=== PATIENT | female | born 1955 | race Caucasian/White ===

== ENCOUNTER 2018-06-20 15:14 | Inpatient (IN) | payer OTHER ==
[~2018-06-20] VITALS: Ht 165.1 cm; Wt 47.7 kg
[2018-06-20] MEDS ORDERED: SODIUM CHLORIDE 0.9% 1000ML 1,000 ML IV STA (15:44)
[2018-06-20] MEDS ORDERED: ONDANSETRON INJ 2 MG/ML 2 ML VIAL IV STA (15:44)
--- NOTE | 2018-06-20 15:52 | EMERGENCY ROOM VISIT NOTE ---
History First contact with patient: 15:26 (Kim Ortiz PA-C) First contact with patient: 15:26 (Kendall Patterson M.D.) Chief Complaint: DIARRHEA Stated Complaint: DIARRHEA/VOMITING History of Present Illness The patient is a 63 year old female who presents to the Emergency Room with complaints of diarrhea and vomiting. The patient states that she has had loose stools for the past 1 week. She has had a decreased appetite. Her symptoms have worsened over the past 2-3 days and she has also developed vomiting. She has been unable to keep anything down, even small sips of juice. She reports that last night, she was awake and having watery stools every 1 hour. Her sister notes that she seems to have lost weight in the past week. She did take a single dose of doxycycline in March or April due to two tick bites, but denies any other recent antibiotic use. She does note that she drinks mountain/spring water at home. She denies eating any undercooked foods, but does state that she ate soup which she feels may have made her ill over 1 week ago. She denies any recent travel. She feels that she is dehydrated. She denies any abdominal pain, chest pain, shortness of breath or syncope. She denies any melena or hematochezia. She reports a history of breast cancer and ovarian cancer. (Kim Ortiz PA-C) Review of Systems A complete 10 point review of systems was reviewed with the patient with pertinent positives and negatives as per history of present illness. All else were negative. (Kim Ortiz PA-C) Past Medical/Surgical History Medical Problems: (1) Dehydration (2) History of breast cancer (3) History of ovarian cancer Surgical Problems: (1) History of hysterectomy (2) History of total hip replacement (Kendall Patterson M.D.) Social History Smoking Status: Never Smoker (Kim Ortiz PA-C) Current/Historical Medications Scheduled Travoprost (Travatan Z), 1 DROPS OP HS Physical Exam Vital Signs Date Time Temp Pulse Resp B/P (MAP) Pulse Ox O2 Delivery O2 Flow Rate FiO2 06/20/18 17:46 80 137/75 97 Room Air 06/20/18 15:23 36.6 98 18 118/69 98 Room Air (Kendall Patterson M.D.) Physical Exam VITALS: Vitals are noted on the nurse's note and reviewed by myself. Vital signs stable. GENERAL: This is a 63-year-old female, in no acute distress, very thin appearing. EARS: External auditory canals clear, tympanic membranes pearly acevedo without erythema or effusion bilaterally. EYES: Pupils equal round and reactive to light and accommodation. MOUTH: Mucous membranes dry. Tonsils are not enlarged. Pharynx without erythema or exudate. NECK: Supple without nuchal rigidity. No lymphadenopathy. HEART: Regular rate and rhythm without murmurs gallops or rubs. LUNGS: Clear to auscultation bilaterally without wheezes, rales or rhonchi. ABDOMEN: Positive bowel sounds x 4. Soft, nontender to palpation. NEURO: Patient was alert and oriented to person place and time. (Kim rOtiz, KAYLEENC) Medical Decision & Procedures Laboratory Results 06/20/18 16:20 Red Blood Count 5.32, Mean Corpuscular Volume 90.2, Mean Corpuscular Hemoglobin 31.6, Mean Corpuscular Hemoglobin Concent 35.0, Mean Platelet Volume 9.8, Neutrophils (%) (Auto) 81.8, Lymphocytes (%) (Auto) 7.8, Monocytes (%) (Auto) 9.7, Eosinophils (%) (Auto) 0.1, Basophils (%) (Auto) 0.3, Neutrophils # (Auto) 9.10, Lymphocytes # (Auto) 0.87, Monocytes # (Auto) 1.08, Eosinophils # (Auto) 0.01, Basophils # (Auto) 0.03 06/20/18 16:20 Test 06/20/18 16:20 06/20/18 17:41 White Blood Count 11.12 K/uL (4.8-10.8) Red Blood Count 5.32 M/uL (4.2-5.4) Hemoglobin 16.8 g/dL (12.0-16.0) Hematocrit 48.0 % (37-47) Mean Corpuscular Volume 90.2 fL (80-100) Mean Corpuscular Hemoglobin 31.6 pg (25-34) Mean Corpuscular Hemoglobin Concent 35.0 g/dl (32-36) Platelet Count 295 K/uL (130-400) Mean Platelet Volume 9.8 fL (7.4-10.4) Neutrophils (%) (Auto) 81.8 % Lymphocytes (%) (Auto) 7.8 % Monocytes (%) (Auto) 9.7 % Eosinophils (%) (Auto) 0.1 % Basophils (%) (Auto) 0.3 % Neutrophils # (Auto) 9.10 K/uL (1.4-6.5) Lymphocytes # (Auto) 0.87 K/uL (1.2-3.4) Monocytes # (Auto) 1.08 K/uL (0.11-0.59) Eosinophils # (Auto) 0.01 K/uL (0-0.5) Basophils # (Auto) 0.03 K/uL (0-0.2) RDW Standard Deviation 45.7 fL (36.4-46.3) RDW Coefficient of Variation 14.0 % (11.5-14.5) Immature Granulocyte % (Auto) 0.3 % Immature Granulocyte # (Auto) 0.03 K/uL (0.00-0.02) Anion Gap 11.0 mmol/L (3-11) Est Creatinine Clear Calc Drug Dose 15.7 ml/min Estimated GFR () 20.7 Estimated GFR (Non- 17.9 BUN/Creatinine Ratio 16.0 (10-20) Calcium Level 10.7 mg/dl (8.5-10.1) Magnesium Level 2.2 mg/dl (1.8-2.4) Total Bilirubin 0.4 mg/dl (0.2-1) Aspartate Amino Transf (AST/SGOT) 26 U/L (15-37) Alanine Aminotransferase (ALT/SGPT) 29 U/L (12-78) Alkaline Phosphatase 97 U/L (45-117) Total Protein 8.8 gm/dl (6.4-8.2) Albumin 4.0 gm/dl (3.4-5.0) Globulin 4.8 gm/dl (2.5-4.0) Albumin/Globulin Ratio 0.8 (0.9-2) Urine Color DK YELLOW Urine Appearance TURBID (CLEAR) Urine pH 5.0 (4.5-7.5) Urine Specific [place] 1.023 (1.000-1.030) Urine Protein 2+ (NEG) Urine Glucose (UA) NEG (NEG) Urine Ketones 1+ (NEG) Urine Occult Blood NEG (NEG) Urine Nitrite NEG (NEG) Urine Bilirubin NEG (NEG) Urine Urobilinogen NEG (NEG) Urine Leukocyte Esterase TRACE (NEG) Urine WBC (Auto) 10-30 /hpf (0-5) Urine RBC (Auto) 5-10 /hpf (0-4) Urine Hyaline Casts (Auto) >30 /lpf (0-5) Urine Epithelial Cells (Auto) >30 /lpf (0-5) Urine Bacteria (Auto) NEG (NEG) Urine Renal Epithelial Cells 5-10 /lpf (0-5) Urine Pathogenic Casts 1-5 GRANULAR CASTS /lpf (0) (Kendall Patterson M.D.) Medications Administered Medications (Trade) Dose Ordered Sig/Emmett Route Start Time Stop Time Status Last Admin Dose Admin Sodium Chloride 1,000 ml @ 999 mls/hr Q1H1M STAT IV 06/20/18 15:44 06/20/18 16:44 DC 06/20/18 16:25 999 MLS/HR Ondansetron HCl (Zofran Inj) 4 mg NOW STAT IV 06/20/18 15:44 06/20/18 15:47 DC 06/20/18 16:25 4 MG (Kendall Patterson M.D.) Medical Decision Differential diagnosis includes C. difficile, Giardia, infectious diarrhea, IBS , IBD, dehydration, electrolyte abnormality, among others. The patient is a 63-year-old female who presents today complaining of diarrhea and vomiting. Labs revealed mild leukocytosis of 11,000, which may be due to hemoconcentration as hemoglobin is also elevated at 16.8. Patient's creatinine is elevated at 2.72, BUN 44 consistent with acute kidney injury due to dehydration. Patient reports she has never had any problems with her kidneys in the past. Electrolytes were otherwise without concerning findings. Patient was unable to provide a stool sample while in the ED. She was hydrated with 1 L normal saline solution and given Zofran for her nausea. Due to the acute kidney injury, she was [facility] the [facility] for further evaluation and care. (Kim Ortiz PA-C) Medication Reconcilliation Current Medication List: was personally reviewed by me (Kim Ortiz PA-C) Blood Pressure Screening Patient's blood pressure: Normal blood pressure (Kim Ortiz PA-C) Impression Primary Impression: Acute kidney injury Additional Impressions: Dehydration Diarrhea Departure Information Patient Instructions [facility] Health Problem Qualifiers Additional Impressions: Diarrhea Diarrhea type: presumed infectious Qualified Codes: R19.7 - Diarrhea, unspecified
[2018-06-20 16:41] LABS: BASO % 0.3 %; BASO ABS # 0.03 K/uL (0-0.2); EOS % 0.1 %; EOS ABS # 0.01 K/uL (0-0.5); HEMOGLOBIN 16.8 g/dL (12.0-16.0); IG# 0.03 K/uL (0.00-0.02); LYMPH % 7.8 %; LYMPH ABS # 0.87 K/uL (1.2-3.4); MEAN CELL VOLUME 90.2 fL (80-100); MEAN CORPUSCULAR HEMOGLOBIN 31.6 pg (25-34); MEAN PLATELET VOLUME 9.8 fL (7.4-10.4); MONO % 9.7 %; MONO ABS # 1.08 K/uL (0.11-0.59); NEUT % 81.8 %; PLATELET COUNT 295 K/uL (130-400); RED CELL DISTRIBUTION WIDTH SD 45.7 fL (36.4-46.3); WHITE BLOOD COUNT 11.12 K/uL (4.8-10.8)
[2018-06-20 17:13] LABS: CALCIUM 10.7 mg/dl (8.5-10.1); CREATININE 2.72 mg/dl (0.60-1.20); POTASSIUM 3.9 mmol/L (3.5-5.1); TOTAL PROTEIN 8.8 gm/dl (6.4-8.2)
[2018-06-20] MEDS ORDERED: TRAV0.00 OP (17:53)
[2018-06-20] MEDS ORDERED: ONDANSETRON INJ 2 MG/ML 2 ML VIAL IV PRN (18:45)
[2018-06-20] MEDS ORDERED: MAGNESIUM HYDROXIDE SUSP 30 ML UDC PO PRN (18:45)
[2018-06-20] MEDS ORDERED: ACETAMINOPHEN 325 MG TAB PO PRN (18:45)
--- NOTE | 2018-06-20 18:48 | History and Physical ---
History & Physical Date & Time of Service: Jun 20, 2018 at 18:40 Chief Complaint: Diarrhea/Vomiting Primary Care Physician: No Doctor, Assigned History of Present Illness Source: patient 63 y/o F c/o diarrhea and vomiting. Pt states she has had diarrhea for about 7- 8 days. She states that she started having emesis about 2-3 days ago. She has not been able to keep anything down since this started. This morning she tried to swish orange juice around in her mouth and she threw up as soon as she swallowed it. She has had no abd pain with any of this. Her sx are worsening and she was up almost every hour last night with diarrhea. Her last emesis and diarrhea were this AM. They have been unable to collect a stool sample from her in the ED as she has not had any episode. Her stool has been a green color. There has been no blood. She has never had diarrhea like this prior. Pt denies fever, SOB, chest pain, LE pain or swelling. Pt lives alone at present as her has just been placed in a usp. She does go to visit him and states that she was told that there was a stomach bug going around. Pt had a single dose of doxy in March or April for tick bites, but no other abx. No travel. Her is not sick with this. No sick contacts. Pt does drink mountain water. Pt notes that she is generally very active, walking daily and other exercises, but she has been so weak that she has not been able to do this the last week. Past Medical/Surgical History Breast ca s/p mastectomy Ovarian ca s/p hysterectomy Family History Mother/father: both from cancer Social History Smoking Status: Former Smoker (quit 1998) Alcohol Use: rarely Drug Use: none Immunizations History of Influenza Vaccine: No History of Tetanus Vaccine?: Yes Tetanus Immunization Date: Feb 03, 1990 History of Pneumococcal: No History of Hepatitis B Vaccine: No Allergies Coded Allergies: Nickel (Unverified Allergy, Severe, RASH,ITCHING, 06/20/18) Home Medications Scheduled Travoprost (Travatan Z), 1 DROPS OP HS Review of Systems Pertinent positives and negatives reviewed in HPI--all others negative Physical Exam Vital Signs Date Time Temp Pulse Resp B/P (MAP) Pulse Ox O2 Delivery O2 Flow Rate FiO2 06/20/18 17:46 80 137/75 97 Room Air 06/20/18 15:23 36.6 98 18 118/69 98 Room Air General Appearance: no apparent distress, + thin Head: normocephalic, atraumatic Eyes: normal inspection, sclerae normal Respiratory/Chest: normal breath sounds, no respiratory distress Cardiovascular: regular rate, rhythm, no edema Abdomen/GI: non tender, soft Extremities/Musculoskelatal: no calf tenderness, no pedal edema Neurologic/Psych: alert, normal mood/affect, oriented x 3 Skin: normal color, warm/dry Diagnostics Laboratory Results Results Past 24 Hours Test 06/20/18 16:20 06/20/18 17:41 Range/Units White Blood Count 11.12 4.8-10.8 K/uL Red Blood Count 5.32 4.2-5.4 M/uL Hemoglobin 16.8 12.0-16.0 g/dL Hematocrit 48.0 37-47 % Mean Corpuscular Volume 90.2 80-100 fL Mean Corpuscular Hemoglobin 31.6 25-34 pg Mean Corpuscular Hemoglobin Concent 35.0 32-36 g/dl Platelet Count 295 130-400 K/uL Mean Platelet Volume 9.8 7.4-10.4 fL Neutrophils (%) (Auto) 81.8 % Lymphocytes (%) (Auto) 7.8 % Monocytes (%) (Auto) 9.7 % Eosinophils (%) (Auto) 0.1 % Basophils (%) (Auto) 0.3 % Neutrophils # (Auto) 9.10 1.4-6.5 K/uL Lymphocytes # (Auto) 0.87 1.2-3.4 K/uL Monocytes # (Auto) 1.08 0.11-0.59 K/uL Eosinophils # (Auto) 0.01 0-0.5 K/uL Basophils # (Auto) 0.03 0-0.2 K/uL RDW Standard Deviation 45.7 36.4-46.3 fL RDW Coefficient of Variation 14.0 11.5-14.5 % Immature Granulocyte % (Auto) 0.3 % Immature Granulocyte # (Auto) 0.03 0.00-0.02 K/uL Sodium Level 139 136-145 mmol/L Potassium Level 3.9 3.5-5.1 mmol/L Chloride Level 108 98-107 mmol/L Carbon Dioxide Level 20 21-32 mmol/L Anion Gap 11.0 3-11 mmol/L Blood Urea Nitrogen 44 7-18 mg/dl Creatinine 2.72 0.60-1.20 mg/dl Est Creatinine Clear Calc Drug Dose 15.7 ml/min Estimated GFR () 20.7 Estimated GFR (Non- 17.9 BUN/Creatinine Ratio 16.0 10-20 Random Glucose 108 70-99 mg/dl Calcium Level 10.7 8.5-10.1 mg/dl Magnesium Level 2.2 1.8-2.4 mg/dl Total Bilirubin 0.4 0.2-1 mg/dl Aspartate Amino Transf (AST/SGOT) 26 15-37 U/L Alanine Aminotransferase (ALT/SGPT) 29 12-78 U/L Alkaline Phosphatase 97 45-117 U/L Total Protein 8.8 6.4-8.2 gm/dl Albumin 4.0 3.4-5.0 gm/dl Globulin 4.8 2.5-4.0 gm/dl Albumin/Globulin Ratio 0.8 0.9-2 Urine Color DK YELLOW Urine Appearance TURBID CLEAR Urine pH 5.0 4.5-7.5 Urine Specific [place] 1.023 1.000-1.030 Urine Protein 2+ NEG Urine Glucose (UA) NEG NEG Urine Ketones 1+ NEG Urine Occult Blood NEG NEG Urine Nitrite NEG NEG Urine Bilirubin NEG NEG Urine Urobilinogen NEG NEG Urine Leukocyte Esterase TRACE NEG Urine WBC (Auto) 10-30 0-5 /hpf Urine RBC (Auto) 5-10 0-4 /hpf Urine Hyaline Casts (Auto) >30 0-5 /lpf Urine Epithelial Cells (Auto) >30 0-5 /lpf Urine Bacteria (Auto) NEG NEG Urine Renal Epithelial Cells 5-10 0-5 /lpf Urine Pathogenic Casts 1-5 GRANULAR CASTS 0 /lpf Microbiology Results 06/20/18 Urine Culture, Received Pending Impression Assessment and Plan 63 y/o F who was admitted on 06/20 with diarrheal illness V/D: likely acute viral GE, unknown source--contaminated spring water vs SNF exposure Cdiff and stool cx pending IVF Clears Probiotic WBC WNL, afebrile No abd pain, will hold on CTAP for now ARF: in the setting of dehydration from above Monitor on IVF No hx of renal issues per pt Electrolytes WNL Abn UA: trace leuk est, neg nitrites Urine cx pending, holding on abx for now Other: Full code, although states she does not want any prolonged life support, feeding tubes, etc Heparin for DVT proph Clears as tolerated with IVF Resuscitation Status VTE Prophylaxis Will order VTE Prophylaxis: Yes
[2018-06-20 20:31] LABS: PTT PATIENT 25.4 SECONDS (21.0-31.0)
[2018-06-20] MEDS ORDERED: TRAVOPROST Z 0.004% OPH SOLN 2.5 ML BTL OP SCH (21:00)
[2018-06-20 21:46] VITALS: BP 145/82; PULSE 88; TEMP 36.6; O2SAT 98; Ht 165.1 cm; Wt 47.7 kg
[2018-06-20] MEDS: HEPARIN SOD 5000 UNIT/0.5 ML CARP SQ SCH (22:00)
[2018-06-20] MEDS: TRAVOPROST OP SCH (22:14)
[2018-06-20] MEDS: SODIUM CHLORIDE 0.9% 1000ML 1,000 ML IV SCH (22:14)
[2018-06-20 22:18] VITALS: BP 122/72; PULSE 77; TEMP 36.8; O2SAT 96
[2018-06-21] MEDS: HEPARIN SOD 5000 UNIT/0.5 ML CARP SQ SCH ×3 (05:32→20:51)
[2018-06-21 05:52] LABS: CREATININE 1.57 mg/dl (0.60-1.20); POTASSIUM 3.2 mmol/L (3.5-5.1)
[2018-06-21 07:01] LABS: CALCIUM 8.1 mg/dl (8.5-10.1)
[2018-06-21] MEDS: SODIUM CHLORIDE 0.9% 1000ML 1,000 ML IV SCH ×2 (07:07→16:51)
[2018-06-21 07:23] VITALS: BP 120/63; PULSE 68; TEMP 36.7; O2SAT 96
[2018-06-21] MEDS: LACTOBACILLUS ACIDOPHILUS (FLORANEX) TAB PO SCH ×3 (07:44→16:52)
[2018-06-21] MEDS ORDERED: POTASSIUM CHLORIDE 10 MEQ TABCR PO STA (07:44)
[2018-06-21 15:39] VITALS: BP 147/72; PULSE 67; TEMP 36.8; O2SAT 97
--- NOTE | 2018-06-21 16:00 | Progress Note ---
Subjective Date of Service: Jun 21, 2018. Subjective Pt evaluation today including: conversation w/ patient, physical exam, chart review, lab review, review of studies, review of inpatient medication list Voiding: no voiding problems Doing well, no complaints, total 2 x time diarrhea today, much better than yesterday, amount is better to Problem List Medical Problems: (1) Acute kidney injury Status: Acute (2) Diarrhea Status: Acute Review of Systems Constitutional: + weakness, + fatigue, No fever, No chills, No sweats, No weight loss, No problem reported Eyes: No worsening of vision, No eye pain, No redness, No discharge, No diplopia ENT: No hearing loss, No unusual epistaxis, No nasal symptoms, No sore throat, No tinnitus, No dental problems, No trouble swallowing Respiratory: No cough, No sputum, No wheezing, No shortness of breath, No dyspnea on exertion, No dyspnea at rest, No hemoptysis Cardiac: No chest pain, No orthopnea, No PND, No edema, No claudication, No palpitations Abdomen: No pain, No nausea, No vomiting, No diarrhea, No constipation Musculoskeletal: No joint pain, No muscle pain, No swelling, No calf pain Female : No dysuria, No urinary frequency, No hematuria, No incontinence, No abnormal vaginal bleeding, No vaginal discharge Neurologic: No memory loss, No paralysis, No weakness, No numbness/tingling, No vertigo, No balance problems Psychiatric: No depression symptoms, No anhedonism, No anxiety, No insomnia, No substance abuse Heme: No abnormal bleeding/bruising, No clotting problems, No swollen lymph nodes, No night sweats Endo: No fatigue, No excessive thirst, No excessive urination Skin: No rash, No itch, No new/changing skin lesions, No color change, No bleeding Objective Vital Signs Date Time Temp Pulse Resp B/P (MAP) Pulse Ox O2 Delivery O2 Flow Rate FiO2 06/21/18 15:39 36.8 67 17 147/72 (97) 97 Room Air 06/21/18 08:00 Room Air 06/21/18 07:23 36.7 68 16 120/63 (82) 96 Room Air 06/21/18 00:00 Room Air 06/20/18 22:18 36.8 77 20 122/72 (89) 96 Room Air 06/20/18 21:46 36.6 88 16 145/82 98 Room Air 06/20/18 20:30 77 174/81 98 06/20/18 20:28 77 14 174/81 98 Room Air 06/20/18 19:15 82 18 149/78 96 Room Air 06/20/18 17:46 80 137/75 97 Room Air Physical Exam General Appearance: WD/WN, no apparent distress, + thin Eyes: normal inspection, PERRL, EOMI, sclerae normal ENT: normal ENT inspection, hearing grossly normal, pharynx normal Neck: supple, no adenopathy, thyroid normal, no JVD, no carotid bruits, trachea midline Respiratory/Chest: chest non-tender, lungs clear, normal breath sounds, no respiratory distress, no accessory muscle use Cardiovascular: regular rate, rhythm, no edema, no gallop, no JVD, no murmur Abdomen: normal bowel sounds, non tender, soft, no organomegaly, no pulsatile mass Extremities: normal range of motion, non-tender, normal inspection, no pedal edema, no calf tenderness, normal capillary refill, pelvis stable Neurologic/Psychiatric: qa software tester II-XII nml as tested, no motor/sensory deficits, alert, normal mood/affect, oriented x 3 Skin: normal color, warm/dry, no rash Lymphatic: no adenopathy Laboratory Results Last 24 Hours Test 06/20/18 16:20 06/20/18 17:41 06/20/18 20:05 06/20/18 21:52 White Blood Count 11.12 K/uL Red Blood Count 5.32 M/uL Hemoglobin 16.8 g/dL Hematocrit 48.0 % Mean Corpuscular Volume 90.2 fL Mean Corpuscular Hemoglobin 31.6 pg Mean Corpuscular Hemoglobin Concent 35.0 g/dl Platelet Count 295 K/uL Mean Platelet Volume 9.8 fL Neutrophils (%) (Auto) 81.8 % Lymphocytes (%) (Auto) 7.8 % Monocytes (%) (Auto) 9.7 % Eosinophils (%) (Auto) 0.1 % Basophils (%) (Auto) 0.3 % Neutrophils # (Auto) 9.10 K/uL Lymphocytes # (Auto) 0.87 K/uL Monocytes # (Auto) 1.08 K/uL Eosinophils # (Auto) 0.01 K/uL Basophils # (Auto) 0.03 K/uL RDW Standard Deviation 45.7 fL RDW Coefficient of Variation 14.0 % Immature Granulocyte % (Auto) 0.3 % Immature Granulocyte # (Auto) 0.03 K/uL Sodium Level 139 mmol/L Potassium Level 3.9 mmol/L Chloride Level 108 mmol/L Carbon Dioxide Level 20 mmol/L Anion Gap 11.0 mmol/L Blood Urea Nitrogen 44 mg/dl Creatinine 2.72 mg/dl Est Creatinine Clear Calc Drug Dose 15.7 ml/min Estimated GFR () 20.7 Estimated GFR (Non- 17.9 BUN/Creatinine Ratio 16.0 Random Glucose 108 mg/dl Calcium Level 10.7 mg/dl Magnesium Level 2.2 mg/dl Total Bilirubin 0.4 mg/dl Aspartate Amino Transf (AST/SGOT) 26 U/L Alanine Aminotransferase (ALT/SGPT) 29 U/L Alkaline Phosphatase 97 U/L Total Protein 8.8 gm/dl Albumin 4.0 gm/dl Globulin 4.8 gm/dl Albumin/Globulin Ratio 0.8 Urine Color DK YELLOW Urine Appearance TURBID Urine pH 5.0 Urine Specific [place] 1.023 Urine Protein 2+ Urine Glucose (UA) NEG Urine Ketones 1+ Urine Occult Blood NEG Urine Nitrite NEG Urine Bilirubin NEG Urine Urobilinogen NEG Urine Leukocyte Esterase TRACE Urine WBC (Auto) 10-30 /hpf Urine RBC (Auto) 5-10 /hpf Urine Hyaline Casts (Auto) >30 /lpf Urine Epithelial Cells (Auto) >30 /lpf Urine Bacteria (Auto) NEG Urine Renal Epithelial Cells 5-10 /lpf Urine Pathogenic Casts 1-5 GRANULAR CASTS /lpf Prothrombin Time 10.9 SECONDS Prothromb Time International Ratio 1.0 Activated Partial Thromboplast Time 25.4 SECONDS Partial Thromboplastin Ratio 1.0 Test 06/21/18 05:19 Sodium Level 139 mmol/L Potassium Level 3.2 mmol/L Chloride Level 114 mmol/L Carbon Dioxide Level 18 mmol/L Anion Gap 7.0 mmol/L Blood Urea Nitrogen 44 mg/dl Creatinine 1.57 mg/dl Est Creatinine Clear Calc Drug Dose 27.6 ml/min Estimated GFR () 40.2 Estimated GFR (Non- 34.7 BUN/Creatinine Ratio 27.8 Random Glucose 77 mg/dl Calcium Level 8.1 mg/dl Assessment and Plan 63 y/o F who was admitted on 06/20 with diarrheal illness Duodenitis gastroenteritis with vomiting or diarrhea, Improved, resolving v Cdiff negative, continue IVF, continue clears liquid diet, advance as tolerated ARF improving: in the setting of dehydration from above, continue IV fluid, hypokalemia replaced Abn UA: trace leuk est, neg nitrites, Urine cx pending, holding on abx for now Full code, however, per record, she states she does not want any prolonged life support, feeding tubes, etc Heparin for DVT proph Continued [facility] stay due to: multiple IV medications needed Discharge planning: home
[2018-06-21] MEDS: TRAVOPROST OP SCH (20:51)
[2018-06-21 23:08] VITALS: BP 145/74; PULSE 62; TEMP 36.7; O2SAT 98
[2018-06-22] MEDS: SODIUM CHLORIDE 0.9% 1000ML 1,000 ML IV SCH (03:30)
[2018-06-22] MEDS: HEPARIN SOD 5000 UNIT/0.5 ML CARP SQ SCH ×2 (06:00→14:00)
[2018-06-22 06:30] LABS: CALCIUM 7.8 mg/dl (8.5-10.1); CREATININE 0.8 mg/dl (0.60-1.20); POTASSIUM 3.5 mmol/L (3.5-5.1)
[2018-06-22 07:23] VITALS: BP 106/67; PULSE 62; TEMP 36.7; O2SAT 97
[2018-06-22] MEDS: LACTOBACILLUS ACIDOPHILUS (FLORANEX) TAB PO SCH ×2 (07:50→12:03)
--- NOTE | 2018-06-22 12:00 | Discharge Instructions ---
Discharge Instructions Date of Service Jun 22, 2018. Admission Reason for Admission: Dehydration Discharge Discharge Diagnosis / Problem: gastroenteritis Discharge Goals Goal(s): Decrease discomfort, Improve function, Increase independence, Improve disease control, Improve nutritional status, Learn about illness, Diagnostic testing, Therapeutic intervention Activity Recommendations Activity Limitations: resume your previous activity . Instructions / Follow-Up Instructions / Follow-Up you have virus gastroenteritis with vomiting or diarrhea, - you need to follow up with your primary care physician in 1 week, - take medication as instructed, never overdose or any misuse, or take with alcohol, because misuse of medicine may cause organ damage or , call me , or your primary care physician if have questions of discharge medicaitons. - call your primary care physician, or go to local emergency room if has any fever/chill, chest pain, shortness of breathing, nausea/vomiting/abdominal pain , facial droop/slurry speech/local weakness, or if has any questions. - fall precaution - diet as instructed Current Hospital Diet Patient's current hospital diet: Full Liquid Diet Discharge Diet Recommended Diet: Regular Diet Pending Studies Studies pending at discharge: no Laboratory Results Meds Administered (Past 24Hrs) Medications (Trade) Dose Ordered Sig/Emmett Route Start Time Stop Time Status Last Admin Dose Admin Sodium Chloride 1,000 ml @ 999 mls/hr Q1H1M STAT IV 06/20/18 15:44 06/20/18 16:44 DC 06/20/18 16:25 999 MLS/HR Ondansetron HCl (Zofran Inj) 4 mg NOW STAT IV 06/20/18 15:44 06/20/18 15:47 DC 06/20/18 16:25 4 MG Sodium Chloride 1,000 ml @ 100 mls/hr Q10H IV 06/20/18 21:30 06/22/18 08:16 DC 06/22/18 03:30 100 MLS/HR Lactobacillus Acidophilus (Floranex Tab) 4 tab TIDM PO 06/21/18 08:00 07/21/18 07:59 06/22/18 07:50 4 TAB Travoprost (Travatan Z) 1 drops HS OP 06/20/18 22:00 07/20/18 21:59 06/21/18 20:51 1 DROPS Potassium Chloride (Klor-Con M10) 40 meq NOW STAT PO 06/21/18 07:44 06/21/18 07:51 DC 06/21/18 09:06 40 MEQ Medical Emergencies . Who to Call and When: Medical Emergencies: If at any time you feel your situation is an emergency, please call 911 immediately. . Non-Emergent Contact Non-Emergency issues call your: Primary Care Provider . . "Provider Documentation" section prepared by Ghulam Morrison. .
[2018-06-22 14:22] VITALS: BP 106/67; PULSE 62; TEMP 36.7; O2SAT 97
--- NOTE | 2018-06-22 14:24 | Discharge Summary ---
Discharge Summary Date of Service Jun 22, 2018. Discharge Summary Admission Date: Jun 20, 2018 at 18:40 Discharge Date: Jun 22, 2018 Discharge Disposition: Home Principal Diagnosis: virus gastroenteritis Immunizations: Have You Had Influenza Vaccine: No History of Tetanus Vaccine?: Yes Tetanus Immunization Date: Feb 03, 1990 History of Pneumococcal: No History of Hepatitis B Vaccine: No Procedures: No Consultations: No Medication Reconciliation Continued Medications: Travoprost (Travatan Z) 0.004 % Javier 1 DROPS OP HS, #2.5 ML 2 Refills Discharge Exam Continue doing well, no bowel movement, no diarrhea, has been tolerating diet for breakfast and lunch, later reported to me tolerated regular diet too Review of Systems: Constitutional: No fever, No chills, No sweats, No weight loss, No weakness , No fatigue, No problem reported Eyes: No worsening of vision, No eye pain, No redness, No discharge, No diplopia, No problem reported ENT: No hearing loss, No unusual epistaxis, No nasal symptoms, No sore throat, No tinnitus, No dental problems, No trouble swallowing, No problem reported Respiratory: No cough, No sputum, No wheezing, No shortness of breath, No dyspnea on exertion, No dyspnea at rest, No hemoptysis, No problem reported Cardiovascular: No chest pain, No orthopnea, No PND, No edema, No claudication, No palpitations, No problem reported Abdomen: No pain, No nausea, No vomiting, No diarrhea, No constipation, No GI bleeding, No problem reported Musculoskeletal: No joint pain, No muscle pain, No swelling, No calf pain, No problem reported Genitourinary - Female: No dysuria, No urinary frequency, No urinary urgency , No urinary incontinence, No urinary retention, No hematuria, No dysmenorrhea, No menorrhagia, No metrorrhagia, No rash, No vaginal bleeding, No vaginal discharge, No vaginal itching, No vulvodynia, No , No problem reported Neurologic: No memory loss, No paralysis, No weakness, No numbness/tingling , No vertigo, No balance problems, No problem reported Endocrine: No fatigue, No excessive thirst, No excessive urination, No problem reported Hematologic / Lymphatic: No abnormal bleeding/bruising, No clotting problems , No swollen lymph nodes, No night sweats, No problem reported Integumentary: No rash, No itch, No new/changing skin lesions, No color change, No bleeding, No problem reported Physical Exam: General Appearance: WD/WN Eyes: normal inspection ENT: normal ENT inspection, hearing grossly normal Neck: supple, no adenopathy Respiratory/Chest: chest non-tender, lungs clear Cardiovascular: regular rate, rhythm, no edema Abdomen / GI: normal bowel sounds, non tender, soft, no organomegaly Extremities: normal inspection, no calf tenderness Skin: normal color Hospital Course 63 y/o F who was admitted on 06/20 with diarrheal illness Likely virus gastroenteritis with vomiting or diarrhea, continue improvement and resolving Cdiff negative, Has been off IVF, Has been clears liquid diet, advance as tolerated, today tighter tolerated regular diet ARF acute renal failure upon admission, has been improving: in the setting of dehydration from above, has been on IV fluids hypokalemia upon admission replaced Abn UA: trace leuk est, neg nitrites, urine culture negative, will not need antibiotics Full code, however, per record, she states she does not want any prolonged life support, feeding tubes, etc Heparin for DVT proph Patient discharged home today in stable condition Instructions / Follow-Up you have virus gastroenteritis with vomiting or diarrhea, - you need to follow up with your primary care physician in 1 week, - take medication as instructed, never overdose or any misuse, or take with alcohol, because misuse of medicine may cause organ damage or , call me , or your primary care physician if have questions of discharge medicaitons. - call your primary care physician, or go to local emergency room if has any fever/chill, chest pain, shortness of breathing, nausea/vomiting/abdominal pain , facial droop/slurry speech/local weakness, or if has any questions. - fall precaution - diet as instructed Total Time Spent: Greater than 30 minutes This includes examination of the patient, discharge planning, medication reconciliation, and communication with other providers. Discharge Instructions Please refer to the electronic Patient Visit Report (Discharge Instructions) for additional information.
== END 2018-06-22 18:57 | disposition home or self-care (01) | DRG 392 ==
LOC: C.EDB 15:17 → C.MS2W 18:40 → ENRESERV 19:19
PROVIDERS: ADMIT Family Medicine; ATTEND Hospitalist
DX: A08.4 Viral intestinal infection, unspecified (principal); N17.9 Acute kidney failure, unspecified; Z85.3 Personal history of malignant neoplasm of breast; Z96.649 Presence of unspecified artificial hip joint; E86.0 Dehydration; Z87.891 Personal history of nicotine dependence

== ENCOUNTER 2020-04-25 14:43 | Inpatient (IN) ==
[2020-04-25] MEDS ORDERED: PROMETHAZINE 12.5 MG/50.5 ML BAG IV STA (15:24)
[2020-04-25] MEDS ORDERED: SODIUM CHLORIDE 0.9% 1000ML 1,000 ML IV SCH ×2 (15:30→23:15)
--- NOTE | 2020-04-25 15:32 | Emergency Department Note ---
Impression & Plan SBO (small bowel obstruction), History of ovarian cancer, Nausea & vomiting ED Provider Note NAME: ANY SCHOFIELD AGE: 64 SEX: F : 1955 ARRIVES VIA: Walk-In INFORMANT: Patient, ED PROVIDER(S): Juan Carlos Lockwood DO CHIEF COMPLAINT: Nausea vomiting HPI: The patient is a 64-year-old female who presented to the emergency department for an evaluation of nausea vomiting. The patient was treated with IV fluids and IV antiemetics at the [facility]. She was sent to the emergency department because of ongoing symptoms. The patient also complains of intermittent crampy abdominal pain. She has a history of ovarian cancer. She states her symptoms are mildly improved at this time. She denies having any fever or cough. She states that otherwise she has been compliant with her outpatient medications. She denies having any chest pain difficulty breathing or lower extremity pain. She denies having any lower extremity swelling. She states that she does have a history of ascites which is needed drained in the past. ROS: See above HPI for pertinent positives & negatives. A total of 10 systems reviewed and were otherwise negative. PAST MEDICAL HISTORY: See Below PAST SURGICAL HISTORY: See Below FAMILY HISTORY: See Below SOCIAL HISTORY: See Below HOME MEDICATIONS: See Below ALLERGIES: See Below VITALS: See Below PHYSICAL EXAMINATION: GENERAL: The patient is awake and alert. The patient is somewhat anxious appearing and uncomfortable. EYES: The conjunctivae are clear. The pupils are round and reactive. EARS, NOSE, MOUTH AND THROAT: The nose is without any evidence of any deformity. Mucous membranes are dry. NECK: The neck is nontender and supple. RESPIRATORY: Normal respiratory effort is noted there is no evidence of wheezing rhonchi or rales CARDIOVASCULAR: Regular rate and rhythm noted there no murmurs rubs or gallops normal S1 normal S2. GASTROINTESTINAL: The abdomen is mildly distended but soft. There is diffuse tenderness to palpation but no specific guarding or rigidity. MUSCULOSKELETAL/EXTREMITIES: There is no evidence of gross deformity full range of motion is noted in the hips and shoulders. SKIN: There is no obvious evidence of any rash. There are no petechiae, pallor or cyanosis noted. NEUROLOGIC: Patient is awake alert and oriented x3 strength is symmetric patellar reflexes are 2+ bilaterally MEDICAL DECISION MAKING: The patient is a 64-year-old female who has a history of ovarian cancer who presented to the emergency department for an evaluation of nausea vomiting. The patient was seen in the cancer center and treated with IV fluids and IV antiemetics but her symptoms were ongoing so she was sent to the emergency department for further evaluation. The patient did not have specific abdominal pain by complaint but on physical exam she did have lower abdominal tenderness. She started having intermittent abdominal pain so CT of the abdomen and pelvis was obtained. This appeared to be consistent with a small bowel obstruction. The patient has had a history of similar episodes in the past. I discussed the patient's laboratory and radiographic studies with her. She was treated with IV fluids and IV antiemetics. I discussed her case with the on-call [facility] hospitalist group as well as the on-call surgical group. They have agreed to evaluate the patient in the emergency department for further management and disposition. Triage Nursing notes reviewed. Prior medical records reviewed Vital Signs: reviewed and remarkable for no significant abnormalities Differential diagnosis: Gastroenteritis, food borne illness, infections, appendicitis, diverticulitis, inflammatory bowel disease, obstruction, GI bleed, biliary pathology, volvulus, as well as other pathologies. ER treatment provided: See below Diagnostics interpreted by me: ECG: none Cardiac Monitoring: An order was placed for continuous cardiac monitoring. The monitor shows a rate of 85 with sinus rhythm. Laboratory studies: As stated above and show below. Imaging studies: See below Consultation(s): 1710: I discussed this case with Dr. Garrett. She was on-call for the [facility] hospitalist group. They will evaluate the patient in the emergency department for further management and disposition. 1720: I discussed this case with Yevgeniy who was covering for the surgical group. He will evaluate the patient in the emergency department for further management and disposition. Past Med/Surg History Medical History Ascites r/t cancer- s/p "successful" ultrasound guided paracentesis with removal of approximately 2.1 liters of ascitic fluid" per 02/22/20 [facility] report Emphysema lung per PCP records Glaucoma History of blood clots DURING CHEMO TREATMENT (WAS ON BLOOD THINNER) History of breast cancer 1998 s/p mastectomy/chemo History of chemotherapy History of ovarian cancer initial dx 2007 SBO (small bowel obstruction) hx per records Trigger finger of right hand (Acute) repaired per patient. 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 Beliefs That Will Affect Care: None marital status: / Current Living Situation: Alone Feels Safe at Home: Yes Smoking Status: Former smoker Tobacco Type: cigarettes ; Smoking End Date: 1998 ; Second Hand Exposure: Yes ; Hx Alcohol Use: No Hx Substance Use: No Allergies Allergies Allergy/AdvReac Type Severity Reaction Status Date / Time nickel Allergy Intermediate RASH,ITCHIN Verified 04/25/20 15:52 G Home Meds Home Medications Medication Instructions Recorded Confirmed latanoprost 1 drp OPHTHALMIC (EYE) HS 02/02/20 04/25/20 ondansetron HCl 8 mg tablet 8 mg PO Q8H PRN 02/24/20 04/25/20 oxycodone 5 mg capsule 5 mg PO BID PRN 02/24/20 04/25/20 dexamethasone [Decadron] 10 mg PO UD 04/25/20 04/25/20 Results & Data (ED) Vital Signs Vital Signs - 24 hr 04/25/20 15:10 04/25/20 15:24 04/25/20 16:19 Temperature 36.8 C Temperature Source Oral Pulse Rate 91 H 78 Pulse Rate from SpO2 Sensor 78 Respiratory Rate 20 18 Blood Pressure 155/86 H 181/76 H Blood Pressure Mean 109 124 Pulse Oximetry 99 96 96 Oxygen Delivery Method Room Air Room Air Sepsis Recent Fever Within 48 Hours No Sepsis New/Unexplained Change in Mental Status No Sepsis Action Taken by Nursing No Action Required 04/25/20 16:24 04/25/20 16:30 04/25/20 17:00 Temperature Temperature Source Pulse Rate 79 78 79 Pulse Rate from SpO2 Sensor 78 78 79 Respiratory Rate 17 16 15 Blood Pressure Blood Pressure Mean Pulse Oximetry 96 97 97 Oxygen Delivery Method Sepsis Recent Fever Within 48 Hours Sepsis New/Unexplained Change in Mental Status Sepsis Action Taken by Nursing 04/25/20 17:42 04/25/20 17:44 Temperature Temperature Source Pulse Rate 75 77 Pulse Rate from SpO2 Sensor Respiratory Rate 16 15 Blood Pressure 191/93 H Blood Pressure Mean 140 Pulse Oximetry Oxygen Delivery Method Sepsis Recent Fever Within 48 Hours Sepsis New/Unexplained Change in Mental Status Sepsis Action Taken by [facility]itent[facility] Medications Current Medication List: was personally reviewed by me Laboratory Data Attestation: I reviewed the patient's lab results. Lab Results 04/25/20 04/25/20 Range/Units 15:40 15:40 Lipase 113 (73-393) U/L Procalcitonin < 0.05 (0-0.5) ng/ml The patient's laboratory results from the cancer center were also reviewed. Administered Medications Ioversol (Optiray 320 125ml) 93 ml IV ONCE PRN PRN Reason: Interaction Checking Stop: 04/29/20 16:02 Last Admin: 04/25/20 16:04 Dose: 93 ml Documented by: [id number] Ioversol (Optiray 320 100ml) 93 ml IV ONCE PRN PRN Reason: Interaction Checking Stop: 04/29/20 16:04 Last Admin: 04/25/20 16:05 Dose: 93 ml Documented by: [id number] Morphine Sulfate (Morphine Sulfate) 4 mg IV Q3H PRN PRN Reason: Severe Pain Stop: 05/09/20 18:03 Last Admin: 04/25/20 18:22 Dose: 4 mg Documented by: [id number] Discontinued Medications Hydralazine HCl (Hydralazine Hcl) 5 mg IV NOW ONE Stop: 04/25/20 18:11 Last Admin: 04/25/20 18:22 Dose: 5 mg Documented by: [id number] Sodium Chloride (Nss 1000ml) 1,000 mls @ 999 mls/hr IV .Q1H1M IVY Stop: 04/25/20 16:30 Last Infusion: 04/25/20 17:59 Dose: 0 mls/hr Documented by: [id number] Admin: 04/25/20 15:46 Dose: 999 mls/hr Documented by: [id number] Promethazine HCl (Phenergan) 12.5 mg in 50.5 mls @ 202 mls/hr IV NOW STA Stop: 04/25/20 15:38 Last Infusion: 04/25/20 16:07 Dose: 0 mls/hr Documented by: [id number] Admin: 04/25/20 15:52 Dose: 202 mls/hr Documented by: [id number] Morphine Sulfate (Morphine Sulfate) 2 mg IV NOW STA Stop: 04/25/20 20:19 Last Admin: 04/25/20 20:46 Dose: 2 mg Documented by: [id number] Imaging Data Radiologist's Impression: vXR chest 1V portable CLINICAL HISTORY: vomiting COMPARISON STUDY: 02/28/2020 FINDINGS: The cardiac and mediastinal contours remain stable. There is a right- sided A-Port catheter. There is no failure. There are no pleural effusions. There is no evidence for free intraperitoneal air. Increased density at the right medial apex, likely represents a summation.[No corresponding pulmonary abnormality was visualized in the prior PET CT scan dated 03/01/2020. IMPRESSION: 1. Increased markings at the right medial lung apex, likely representing a summation. There was no corresponding pulmonary abnormality on a PET CT scan performed in February 2020. If the patient has signs or symptoms of pneumonia, a short-term follow-up PA and lateral chest x-ray would be suggested. 2. No evidence of free intraperitoneal air. ACT 112: Negative or not required by law. Electronically signed by: Crow Carranza M.D. 04/25/2020 3:41 PM Dictated: 04/25/20 1538 Transcribed: 04/25/20 [address] WITH IV CONTRAST CT DOSE: 243.08 mGy.cm HISTORY: [facility]: Multiaxial CT images of the abdomen and pelvis were performed following the use of intravenous contrast. A dose lowering technique was utilized adhering to the principles of ALARA. COMPARISON STUDY: Abdomen and pelvis CT 02/02/2020. FINDINGS: The lung bases are clear. No pneumoperitoneum. No pneumatosis. There is a right total hip arthroplasty. No suspicious lytic are blastic osseous lesions. The liver, spleen, adrenal glands, gallbladder, pancreas, and kidneys are unremarkable. No retroperitoneal lymphadenopathy. Normal caliber abdominal aorta. The main portal vein is patent. Distended and fluid-filled stomach and small bowel to the level of the deep pelvis. The distal ileal loops appear decompressed. The transition point for the small bowel obstruction is difficult to visualize due to the lack of intraperitoneal fat in the metallic artifact from the right hip prosthesis but likely resides within the deep pelvis. This could be secondary to the patient's known peritoneal implants related to the metastatic disease. Small amount of ascites has improved. The peritoneal/omental enhancement has also improved. Bladder is unremarkable. IMPRESSION: 1. Small bowel obstruction with the transition point likely located in the deep pelvis. However, this is difficult to identify due to the metallic artifact within the right hip prosthesis and the lack of intraperitoneal fat. This suggests the possibility of the patient's known peritoneal implants within the deep pelvis resulting in the site of obstruction. 2. Small amount of ascites has improved. 3. The peritoneal/omental enhancement has improved suggestive of improvement in the patient's known metastatic disease. ACT 112: Negative or not required by law. Electronically signed by: Maurilio Boothe M.D. 04/25/2020 4:33 PM Dictated: 04/25/20 1624 Transcribed: 04/25/20 1624 Blood Pressure Blood Pressure Findings: Normal blood pressure Discharge Plan Visit Data *Final* Discharge Date/Time: 04/25/20 19:00 Chief Complaint: Abdominal Pain Stated Complaint: ABD PAIN,NAUSEA,VOMITING,DIARRHEA CHEMO PT ED Provider: Juan Carlos Lockwood Discharge Problem: SBO (small bowel obstruction), History of ovarian cancer, Nausea & vomiting Patient Disposition: Admitted As Inpatient Condition: Good Discharge Instructions Interventions: ED Discharge Assessment Last Done: 04/25/20 19:00
--- NOTE | 2020-04-25 15:42 | XRay Report ---
XR chest 1V portable CLINICAL HISTORY: vomiting COMPARISON STUDY: 02/28/2020 FINDINGS: The cardiac and mediastinal contours remain stable. There is a right-sided A-Port catheter. There is no failure. There are no pleural effusions. There is no evidence for free intraperitoneal a ir. Increased density at the right medial apex, likely represents a summation.[No corresponding pulmo nary abnormality was visualized in the prior PET CT scan dated 03/01/2020. IMPRESSION: 1. Increased markings at the right medial lung apex, likely representing a summation. There was no co rresponding pulmonary abnormality on a PET CT scan performed in February 2020. If the patient has signs or symptoms of pneumonia, a short-term follow-up PA and lateral chest x-ray would be suggested. 2. No evidence of free intraperitoneal air. ACT 112: Negative or not required by law. Electronically signed by: Crow Carranza M.D. 04/25/2020 3:41 PM
[2020-04-25] MEDS ORDERED: OPTIRAY 320 125ml IV PRN (16:03)
[2020-04-25] MEDS ORDERED: IOVERSOL 100ml IV PRN (16:05)
--- NOTE | 2020-04-25 16:34 | CT Scan Report ---
ABDOMEN AND PELVIS CT WITH IV CONTRAST CT DOSE: 243.08 mGy.cm HISTORY: sent from [facility], vomiting, labs in from [place] TECHNIQUE: Multiaxial CT images of the abdomen and pelvis were performed following the use of intrave nous contrast. A dose lowering technique was utilized adhering to the principles of ALARA. COMPARISON STUDY: Abdomen and pelvis CT 02/02/2020. FINDINGS: The lung bases are clear. No pneumoperitoneum. No pneumatosis. There is a right total hip a rthroplasty. No suspicious lytic are blastic osseous lesions. The liver, spleen, adrenal glands, gall bladder, pancreas, and kidneys are unremarkable. No retroperitoneal lymphadenopathy. Normal caliber a bdominal aorta. The main portal vein is patent. Distended and fluid-filled stomach and small bowel to the level of the deep pelvis. The distal ileal loops appear decompressed. The transition point for t he small bowel obstruction is difficult to visualize due to the lack of intraperitoneal fat in the me tallic artifact from the right hip prosthesis but likely resides within the deep pelvis. This could b e secondary to the patient's known peritoneal implants related to the metastatic disease. Small amoun t of ascites has improved. The peritoneal/omental enhancement has also improved. Bladder is unremarka ble. IMPRESSION: 1. Small bowel obstruction with the transition point likely located in the deep pelvis. However, this is difficult to identify due to the metallic artifact within the right hip prosthesis and the lack o f intraperitoneal fat. This suggests the possibility of the patient's known peritoneal implants withi n the deep pelvis resulting in the site of obstruction. 2. Small amount of ascites has improved. 3. The peritoneal/omental enhancement has improved suggestive of improvement in the patient's known m etastatic disease. ACT 112: Negative or not required by law. Electronically signed by: Maurilio Boothe M.D. 04/25/2020 4:33 PM
--- NOTE | 2020-04-25 18:02 | History & Physical Report ---
Date of Service April 25, 2020 Assessment & Plan (1) SBO (small bowel obstruction): admit to Medical NPO, advance diet when appropriate continue pain med place on IVF will hold ng tube for now. SBO (small bowel obstruction): As noted on CT - IV morphine PRN pain - IV ondansetron PRN nausea will hopld antibiotics at this time. - Monitor vitals and CBC (2) Ovarian cancer: Patient has history of this and is currently being treated by Onoclogy. (3) History of breast cancer: no new complaints. (4) History of total hip replacement: stable (5) DVT prophylaxis: lovenox (6) Glaucoma: - Continue home drops of travoprost (if non-formulary, patient has brought in her own drops, please facilitate administration) History of Present Illness Primary Care Provider: Ly García 64 yo female w/ pMHx breast cancer status post mastectomy, ovarian cancer status post hysterectomy, glaucoma, remote history of Giardia infection treated with Flagyl presents today to the ED with bilateral lower abdominal painShe states this pain began about Friday afternoon and gradually became worse over the course the past 3 days. She try to limit her diet but she noticed that when she would eat her pain would worsen. She she feels that the pain is nonradiating and constant. Patient denies fever chills diaphoresis. Patient reports no subjective fevers as well. Patient reports no bowel movements for the past 2-3 days.For the past 24 hours she reports that her nausea has worsened and she is now vomiting her food contents. Pain has also worsened and is about 8 out of 10. Initially it was like a 6 out of 10 Patient reports having a history of small bowel obstruction in the past. She was told she likely has adhesions from her past surgeries. I discussed case with ER attending at this time will hold off NG tube as patient is not actively vomiting at this moment if pain is difficult to control will inserted this evening. Allergies Allergy/AdvReac Type Severity Reaction Status Date / Time nickel Allergy Intermediate RASH,ITCHIN Verified 04/25/20 15:52 G Home Medications Home Medications Medication Instructions Recorded Confirmed Type latanoprost 1 drp OPHTHALMIC (EYE) HS 02/02/20 04/25/20 History ondansetron HCl 8 mg tablet 8 mg PO Q8H PRN 02/24/20 04/25/20 History oxycodone 5 mg capsule 5 mg PO BID PRN 02/24/20 04/25/20 History dexamethasone [Decadron] 10 mg PO UD 04/25/20 04/25/20 History Past Med/Surg History Medical History Ascites r/t cancer- s/p "successful" ultrasound guided paracentesis with removal of approximately 2.1 liters of ascitic fluid" per 02/22/20 [facility] report Emphysema lung per PCP records Glaucoma History of blood clots DURING CHEMO TREATMENT (WAS ON BLOOD THINNER) History of breast cancer 1998 s/p mastectomy/chemo History of chemotherapy History of ovarian cancer (Acute) initial dx 2007 SBO (small bowel obstruction) (Acute) hx per records Trigger finger of right hand (Acute) repaired per patient. Surgical History H/O mastectomy Left H/O rhinoplasty Deviated septum H/O total hysterectomy History of appendectomy History of tonsillectomy and adenoidectomy History of total hip replacement RT History of vascular access device A PORT INSERTION/REMOVAL Family History Mother Breast cancer Cancer Stroke Sister Breast cancer Cancer Father Cancer Other No significant family history Social History Preferred Language: Portuguese Communication Ability: Effective Ladies Locker Room Attendant Required: No Beliefs That Will Affect Care: None marital status: / Current Living Situation: Alone Feels Safe at Home: Yes Smoking Status: Former smoker Tobacco Type: cigarettes ; Second Hand Exposure: Yes ; Hx Alcohol Use: No Hx Substance Use: No Review of Systems Constitutional: + fatigue; no fever, no sweats and no body aches Eyes: no diplopia and no decreased night vision Ear, Nose, Mouth, Throat: no ear trauma and no hyperacusis Respiratory: no cough and no change in sputum Cardiovascular: no chest pain and no chest pain with activity Gastrointestinal: + abdominal pain, + nausea and + vomiting; no hematemesis Genitourinary: no dysuria and no urinary frequency Musculoskeletal: no radicular pain Integumentary: no acne Neurologic: no gait abnormality and no localized weakness Psychiatric: no behavioral changes Physical Exam Constitutional: WD/WN, vitals as above + acute distress ENMT: external ear and nose normal, oropharynx normal Neck: trachea midline, no thyromegaly Respiratory: normal respiratory effort, lungs clear to auscultation Cardiovascular: RRR, no murmur, no edema Gastrointestinal (Abdomen): normal bowel sounds, soft, nontender, no hepatosplenomegaly Neurologic: PERRL, EOMI, accommodation nl, no face palsy, no dysarthria Psychiatric: A+Ox3, euthymic affect Results & Data Results & Data ([facility]) Vital Signs (Past 12 Hours) Vital Signs Temp Pulse Resp BP Pulse Ox 04/25/20 17:44 77 15 04/25/20 17:42 75 16 191/93 H 04/25/20 17:00 79 15 97 04/25/20 16:30 78 16 97 04/25/20 16:24 79 17 96 04/25/20 16:19 78 18 181/76 H 96 04/25/20 15:24 96 04/25/20 15:10 36.8 C 91 H 20 155/86 H 99 PG Care Time/CCT Total # of Minutes Spent Total Time Spent with Patient: Total time spent is greater than 50% in coordination of care (as documented) at patient's floor/unit and/or counseling patient: Coding Level of Care Code 67091 Initial Inpt Care Lvl 3 Diagnoses SBO (small bowel obstruction) K56.609 Ovarian cancer C56.9 History of breast cancer Z85.3 History of total hip replacement Z96.649 DVT prophylaxis Z29.9 Glaucoma H40.9 Time Spent (min) 55
[2020-04-25] MEDS ORDERED: HydrALAZINE HCL 20 MG/ML VIAL IV ONE (18:10)
[2020-04-25] MEDS: MoRPHine SULFATE 4 MG/ML 1 ML CARP\\VIAL IV PRN ×2 (18:22→23:32)
--- NOTE | 2020-04-25 19:26 | Surgery Consultation ---
Date of Consultation April 25, 2020 Assessment & Plan (1) SBO (small bowel obstruction): No acute abdominal findings. Recommend NGT, IVF. Will follow. History of Present Illness History of Present Illness 64 y/o female h/o ovarian cancer [facility] Has pain that comes in waves. Previous obstruction fall 2017. Allergies Allergy/AdvReac Type Severity Reaction Status Date / Time nickel Allergy Intermediate RASH,ITCHIN Verified 04/25/20 15:52 G Home Medications Home Medications Medication Instructions Recorded Confirmed Type latanoprost 1 drp OPHTHALMIC (EYE) HS 02/02/20 04/25/20 History ondansetron HCl 8 mg tablet 8 mg PO Q8H PRN 02/24/20 04/25/20 History oxycodone 5 mg capsule 5 mg PO BID PRN 02/24/20 04/25/20 History dexamethasone [Decadron] 10 mg PO UD 04/25/20 04/25/20 History Patient History Medical History Ascites r/t cancer- s/p "successful" ultrasound guided paracentesis with removal of approximately 2.1 liters of ascitic fluid" per 02/22/20 [facility] report Emphysema lung per PCP records Glaucoma History of blood clots DURING CHEMO TREATMENT (WAS ON BLOOD THINNER) History of breast cancer 1998 s/p mastectomy/chemo History of chemotherapy History of ovarian cancer initial dx 2007 SBO (small bowel obstruction) hx per records Trigger finger of right hand (Acute) repaired per patient. Surgical History H/O mastectomy Left H/O rhinoplasty Deviated septum H/O total hysterectomy History of appendectomy History of tonsillectomy and adenoidectomy History of total hip replacement RT History of vascular access device A PORT INSERTION/REMOVAL Family History Mother Breast cancer Cancer Stroke Sister Breast cancer Cancer Father Cancer Other No significant family history Social History Preferred Language: German Communication Ability: Effective Critical Care Paramedic Required: No Beliefs That Will Affect Care: None marital status: / Current Living Situation: Alone Feels Safe at Home: Yes Smoking Status: Former smoker Tobacco Type: cigarettes ; Smoking End Date: 1998 ; Second Hand Exposure: Yes ; Hx Alcohol Use: No Hx Substance Use: No Review of Systems Constitutional: no fever and no chills Gastrointestinal: + abdominal pain, + bloating, + nausea and + vomiting Physical Exam Cardiovascular: Rate/Rhythm: regular rate Gastrointestinal (Abdomen): Inspection/Auscultation: + abdomen distended (lower abdomen) Percussion/Palpation: + abdomen tender (mild) and abdomen sof t Results & Data Vital Signs (Past 12 Hours) Vital Signs Temp Pulse Resp BP Pulse Ox 04/25/20 17:44 77 15 04/25/20 17:42 75 16 191/93 H 04/25/20 17:00 79 15 97 04/25/20 16:30 78 16 97 04/25/20 16:24 79 17 96 04/25/20 16:19 78 18 181/76 H 96 04/25/20 15:24 96 04/25/20 15:10 36.8 C 91 H 20 155/86 H 99 PG Care Time/CCT Total # of Minutes Spent Total Time Spent with Patient: Total time spent is greater than 50% in coordination of care (as documented) at patient's floor/unit and/or counseling patient: Coding Level of Care Code 15872 Initial Inpt Care Lvl 1 Diagnoses SBO (small bowel obstruction) K56.609
[2020-04-25] MEDS ORDERED: MoRPHine SULFATE 2 MG/ML CARP IV STA (20:18)
[2020-04-25] MEDS: ENOXAPARIN INJ 40 MG/0.4 ML SYR SQ SCH (21:25)
[2020-04-25] MEDS: LATANOPROST 0.005% OP SOLN 2.5 ML BTL OP SCH (21:26)
[2020-04-25 23:30] LABS: Appearance Urine Clear (Clear); Bacteria Urine Automated Negative (Negative); Bilirubin Urine Negative (Negative); Blood Urine Negative (Negative); Color Urine Yellow; Glucose Urine UA Negative (Negative); Ketones Urine 2+ (Negative); Leukocyte Esterase Urine Negative (Negative); Nitrite Urine Negative (Negative); Protein Urine Trace (Negative); RBC Urine Automated 0-4 /hpf (0-4); Specific Gravity Urine > 1.045 (1.000-1.030); Urobilinogen Urine Negative (Negative); pH Urine 5.5 (4.5-7.5)
[2020-04-26] MEDS: MoRPHine SULFATE 2 MG/ML CARP IV PRN ×2 (05:54→09:10)
[2020-04-26] MEDS: ONDANSETRON INJ 2 MG/ML 2 ML VIAL IV PRN (06:27)
--- NOTE | 2020-04-26 09:15 | Surgery Progress Note ---
Date of Service April 26, 2020 Assessment & Plan (1) SBO (small bowel obstruction): some improvement cont NG increase IVF seen with Dr. Malone Subjective no flatus, less pain Physical Exam Gastrointestinal (Abdomen): Inspection/Auscultation: + abdomen distended (less) Percussion/Palpation: abdomen soft; abdomen nontender NG 700 cc Results & Data Vital Signs (Past 12 Hours) Vital Signs Temp Pulse Resp BP Pulse Ox 04/26/20 07:11 36.4 C L 76 18 126/75 98 04/25/20 23:12 36.2 C L 89 16 139/82 98 PG Care Time/CCT Total # of Minutes Spent Total Time Spent with Patient: Total time spent is greater than 50% in coordination of care (as documented) at patient's floor/unit and/or counseling patient: Coding Level of Care Code 07155 Inpt Consult Level 1 Diagnoses SBO (small bowel obstruction) K56.609
[2020-04-26] MEDS: D5W AND 1/2NSS + 20MEQ KCL 20 MEQ/1,000 ML BAG IV SCH ×2 (09:52→17:54)
[2020-04-26] MEDS: MoRPHine SULFATE 4 MG/ML 1 ML CARP\\VIAL IV PRN ×3 (12:21→20:38)
[2020-04-26] MEDS: ENOXAPARIN INJ 40 MG/0.4 ML SYR SQ SCH (20:37)
[2020-04-26] MEDS: LATANOPROST 0.005% OP SOLN 2.5 ML BTL OP SCH (20:38)
--- NOTE | 2020-04-26 22:59 | Hospitalist Progress Note ---
Date of Service April 26, 2020 Assessment & Plan (1) SBO (small bowel obstruction): admit to Medical NPO, advance diet when appropriate continue pain med place on IVF On NG tube. Will continue intermittnet suction. This was placed overnight. SBO (small bowel obstruction): As noted on CT - IV morphine PRN pain - IV ondansetron PRN nausea will hold antibiotics at this time. - Monitor vitals and CBC (2) Ovarian cancer: Patient has history of this and is currently being treated by Onoclogy. (3) History of breast cancer: stable. (4) History of total hip replacement: stable (5) DVT prophylaxis: lovenox (6) Glaucoma: - Continue home drops of travoprost (if non-formulary, patient has brought in her own drops, please facilitate administration) Admission and Anticipated Discharge Date Admission Date: April 25, 2020 Subjective Patent reports feeling better after the NG tube was placed. She denies any new symptoms at this time. Review of Systems Review of Systems: All systems reviewed & are unremarkable except as noted in HPI & below Physical Exam Physical Exam: Constitutional: WD/WN, vitals as above + acute distress ENMT: external ear and nose normal, oropharynx normal Neck: trachea midline, no thyromegaly Respiratory: normal respiratory effort, lungs clear to auscultation Cardiovascular: RRR, no murmur, no edema Gastrointestinal (Abdomen): normal bowel sounds, soft, nontender, no hepat osplenomegaly Neurologic: PERRL, EOMI, accommodation nl, no face palsy, no dysarthria Psychiatric: A+Ox3, euthymic affect Results & Data Results & Data ([facility]) Vital Signs (Past 12 Hours) Vital Signs Temp Pulse Resp BP Pulse Ox 04/26/20 15:13 37.1 C 78 16 123/72 98 PG Care Time/CCT Total # of Minutes Spent Total Time Spent with Patient: Total time spent is greater than 50% in coordination of care (as documented) at patient's floor/unit and/or counseling patient: Coding Level of Care Code 59680 Subseq Hosp Care Lvl 2 Diagnoses SBO (small bowel obstruction) K56.609 Ovarian cancer C56.9 History of breast cancer Z85.3 History of total hip replacement Z96.649 DVT prophylaxis Z29.9 Glaucoma H40.9 Time Spent (min) 25
[2020-04-27] MEDS: D5W AND 1/2NSS + 20MEQ KCL 20 MEQ/1,000 ML BAG IV SCH ×3 (01:37→18:10)
--- NOTE | 2020-04-27 06:50 | Surgery Progress Note ---
Date of Service April 27, 2020 Assessment & Plan (1) SBO (small bowel obstruction): 04/27/20 At this point will obtain an upper GI with small bowel follow-through the patient has not had any flatus and continues to have moderate NG output We are slowly rehydrating her her IVs at 125 we will see what the lab is this morning she may need to have that increased some improvement cont NG increase IVF seen with Dr. Malone Subjective Patient has been up and around with no abdominal discomfort has not had anything for pain since last night she denies any flatus her urine appears to be less concentrated no flatus, less pain Physical Exam Physical Exam: She is alert coherent just walked back from the bathroom Her tongue is moist The NG tube in place dark greenish drainage approximately 300 last emptying The abdomen is softer no tenderness no masses palpable Results & Data Vital Signs (Past 12 Hours) Vital Signs Temp Pulse Resp BP Pulse Ox 04/26/20 23:24 37.0 C 81 16 112/73 96 PG Care Time/CCT Total # of Minutes Spent Total Time Spent with Patient: Total time spent is greater than 50% in coordination of care (as documented) at patient's floor/unit and/or counseling patient: Coding Level of Care Code 36190 Subseq Hosp Care Lvl 3 Diagnoses SBO (small bowel obstruction) K56.609
[2020-04-27 07:49] LABS: Hematocrit (blood only) 31.3 % (37-47); Hemoglobin 10.2 g/dL (12.0-16.0); Mean Corpuscular Hgb Conc 32.6 g/dL (32-36); Mean Corpuscular Volume 95.1 fL (80-100); Mean Platelet Volume 8.2 fL (7.4-10.4); Platelet Count 156 K/uL (130-400); RDW Coefficient of Variation 19.8 % (11.5-14.5); RDW Standard Deviation 65.8 fL (36.4-46.3); Red Blood Count 3.29 M/uL (4.2-5.4); White Blood Count 1.32 K/uL (4.8-10.8)
[2020-04-27 08:08] LABS: BUN Creatinine Ratio 17.6 (10-20); Calcium 8.1 mg/dl (8.5-10.1); Creatinine Clr Calc Pharmacy 65.9 ml/min; Est GFR (African American) 109.3; Est GFR (Non-African American) 94.3; Potassium 3.9 mmol/L (3.5-5.1)
[2020-04-27 08:32] LABS: Basophils # (auto) 0.01 K/uL (0-0.2); Basophils % (auto) 0.8 %; Eosinophils # (auto) 0.04 K/uL (0-0.5); Giant Platelets 1+; Lymphocytes # (auto) 0.41 K/uL (1.2-3.4); Lymphocytes % (auto) 31.1 %; Monocytes # (auto) 0.21 K/uL (0.11-0.59); Monocytes % (auto) 15.9 %; Neutrophils # (auto) 0.65 K/uL (1.4-6.5); Neutrophils % (auto) 49.2 %
[2020-04-27] MEDS: MoRPHine SULFATE 2 MG/ML CARP IV PRN (13:26)
[2020-04-27] MEDS: ONDANSETRON INJ 2 MG/ML 2 ML VIAL IV PRN ×2 (13:26→19:31)
--- NOTE | 2020-04-27 14:03 | Fluoroscopy Report ---
[place] GI series with SBFT CLINICAL HISTORY: bowel obstruction COMPARISON STUDY: CT scan dated 04/25/2020 FLUOROSCOPY TIME: 2.5 minutes. NUMBER OF FLUOROSCOPIC IMAGES: 25 FINDINGS: Horticulture Instructor radiograph reveals dilated small bowel loops. A mixture of 3 cc of Optiray 303 cc of sterile water were introduced into the patient's nasogastric tube. No gastric masses were visualized. There was no gastric outlet obstruction. The duodenal bulb appeared normal as visualized. The ligame nt of Treitz was located in the normal anatomical position. Images out to 3 hours were obtained. Thes e reveal dilated small bowel loops. Contrast had not yet reached the more distal small bowel. There i s no colonic contrast. The patient refused further imaging. IMPRESSION: 1. No significant gastric abnormalities 2. Suspected small bowel obstruction. Dilated small bowel loops were visualized on images out to 3 ho urs. The patient refused further imaging. ACT 112: Negative or not required by law. Electronically signed by: Crow Carranza M.D. 04/27/2020 2:02 PM
[2020-04-27] MEDS: ENOXAPARIN INJ 40 MG/0.4 ML SYR SQ SCH (21:07)
[2020-04-27] MEDS: LATANOPROST 0.005% OP SOLN 2.5 ML BTL OP SCH (21:08)
--- NOTE | 2020-04-27 22:22 | Hospitalist Progress Note ---
Date of Service April 27, 2020 Assessment & Plan (1) SBO (small bowel obstruction): admit to Medical NPO, advance diet when appropriate continue pain med will continue IVF as well. On NG tube. Will continue intermittent suction. Continues to drain dark colored fluid. SBO (small bowel obstruction): As noted on CT - IV morphine PRN pain - IV ondansetron PRN nausea will hold antibiotics at this time. - Monitor vitals and CBC (2) Ovarian cancer: Patient has history of this and is currently being treated by Onoclogy. Given neutropenia, will hold off chemotherapy after discussion with Dr. Thurman. (3) History of breast cancer: stable. (4) History of total hip replacement: stable (5) DVT prophylaxis: lovenox (6) Glaucoma: - Continue home drops of travoprost (if non-formulary, patient has brought in her own drops, please facilitate administration) (7) Neutropenia: likely secondary to chemotherapy. will monitor. Admission and Anticipated Discharge Date Admission Date: April 25, 2020 Subjective 64 yo female who reports feeling weak. She is concerned about her chemotherapy that she has scheduled for tomorrow. Patient is asking if her NG tube can be removed. Review of Systems Review of Systems: All systems reviewed & are unremarkable except as noted in HPI & below Physical Exam Constitutional: WD/WN, vitals as above ENMT: external ear and nose normal, oropharynx normal Neck: trachea midline, no thyromegaly Respiratory: normal respiratory effort, lungs clear to auscultation Cardiovascular: RRR, no murmur, no edema Gastrointestinal (Abdomen): normal bowel sounds, soft, nontender, no hepatosplenomegaly Neurologic: PERRL, EOMI, accommodation nl, no face palsy, no dysarthria Psychiatric: Orientation: alert, oriented to person and oriented to place Results & Data Results & Data ([facility]) Vital Signs (Past 12 Hours) Vital Signs Temp Pulse Resp BP Pulse Ox 04/27/20 15:40 37.2 C 75 16 112/72 97 PG Care Time/CCT Total # of Minutes Spent Total Time Spent with Patient: Total time spent is greater than 50% in coordination of care (as documented) at patient's floor/unit and/or counseling patient: Coding Level of Care Code 35487 Subseq Hosp Care Lvl 2 Diagnoses SBO (small bowel obstruction) K56.609 Ovarian cancer C56.9 History of breast cancer Z85.3 History of total hip replacement Z96.649 DVT prophylaxis Z29.9 Glaucoma H40.9 Neutropenia D70.9 Time Spent (min) 25
[2020-04-28] MEDS: D5W AND 1/2NSS + 20MEQ KCL 20 MEQ/1,000 ML BAG IV SCH ×3 (02:41→18:38)
[2020-04-28 06:27] LABS: Est GFR (African American) 107.1; Est GFR (Non-African American) 92.4
[2020-04-28 06:46] LABS: Basophils # (auto) 0.01 K/uL (0-0.2); Basophils % (auto) 0.5 %; Eosinophils # (auto) 0.06 K/uL (0-0.5); Eosinophils % (auto) 3.1 %; Hematocrit (blood only) 32.1 % (37-47); Hemoglobin 10.6 g/dL (12.0-16.0); Lymphocytes # (auto) 0.53 K/uL (1.2-3.4); Lymphocytes % (auto) 27.7 %; Mean Corpuscular Hemoglobin 31.5 pg (25-34); Mean Corpuscular Volume 95.5 fL (80-100); Mean Platelet Volume 8.6 fL (7.4-10.4); Monocytes % (auto) 15.7 %; Neutrophils # (auto) 1.01 K/uL (1.4-6.5); Platelet Count 204 K/uL (130-400); RDW Coefficient of Variation 19.4 % (11.5-14.5); RDW Standard Deviation 66.1 fL (36.4-46.3); Red Blood Count 3.36 M/uL (4.2-5.4); White Blood Count 1.91 K/uL (4.8-10.8)
--- NOTE | 2020-04-28 07:46 | XRay Report ---
XR KUB/Abdomen 1 view CLINICAL HISTORY: follow up bowel obstruction COMPARISON STUDY: 08/27/2018 FINDINGS: Slight small bowel distention. Contrast is identified within the cecum and ascending colon. Nasogastric tube within the gastric fundus. IMPRESSION: Slightly improved exam with a mild to moderate residual ileus. Nasogastric tube within t he gastric fundus. ACT 112: Negative or not required by law. The above report was generated using voice recognition software. It may contain grammatical, syntax or spelling errors. Electronically signed by: Alen Reddy M.D. 04/28/2020 7:45 AM
[2020-04-28] MEDS ORDERED: bisacodyL 10 MG SUPP PR ONE (08:07)
--- NOTE | 2020-04-28 09:32 | Surgery Progress Note ---
Date of Service April 28, 2020 Assessment & Plan (1) SBO (small bowel obstruction): Hospital day#3 here with small bowel obstruction Patient underwent SBFT yesterday, but refused to finish it out KUB this AM reveals slightly improved exam with some contrast in the cecum and ascending colon, however pt continues to be symptomatic and has not had any return of bowel function NGT >3L output Discussed with her that due to her h/o ovarian cancer and carcinomatosis her surgery would be difficult and may need to perform a colostomy. Our hope is that patient can improve without surgical intervention. We will plan to continue conservative measures through the weekend and then will re-evaluate patient's needs for surgery next week if not improving Will ask oncology to see patient, Dr. Thurman aware Pt seen and examined with Dr. Faisal Tran surgery covering over the weekend Subjective Patient reports not feeling so well. Continues with ongoing nausea and some abdominal pain. No flatus or BM. Physical Exam Physical Exam: awake/alert Gastrointestinal (Abdomen): Inspection/Auscultation: + abdomen distended Percussion/Palpation: + abdomen tender (some ttp in lower abdomen) and abdomen soft Results & Data Vital Signs (Past 12 Hours) Vital Signs Temp Pulse Resp BP Pulse Ox 04/28/20 07:00 36.5 C 70 19 133/78 98 04/27/20 22:58 36.9 C 70 16 125/74 96 PG Care Time/CCT Total # of Minutes Spent Total Time Spent with Patient: Total time spent is greater than 50% in coordination of care (as documented) at patient's floor/unit and/or counseling patient: Coding Level of Care Code 99800 Subseq Hosp Care Lvl 1 Diagnoses SBO (small bowel obstruction) K56.609
--- NOTE | 2020-04-28 09:45 | Hospitalist Progress Note ---
Date of Service April 28, 2020 Assessment & Plan (1) SBO (small bowel obstruction): admit to Medical NPO, continue pain med will continue IVF as well. On NG tube. Will continue intermittent suction. Continues to drain dark colored fluid. Will continue conservative management at this time. SBO (small bowel obstruction): As noted on CT - IV morphine PRN pain - IV ondansetron PRN nausea will hold antibiotics at this time. - Monitor vitals and CBC (2) Ovarian cancer: Patient has history of this and is currently being treated by Onoclogy. Given neutropenia, will hold off chemotherapy after discussion with Dr. Thurman. (3) History of breast cancer: stable. (4) History of total hip replacement: stable (5) DVT prophylaxis: lovenox (6) Glaucoma: - Continue home drops of travoprost (if non-formulary, patient has brought in her own drops, please facilitate administration) (7) Neutropenia: likely secondary to chemotherapy. will monitor. WBC is improving Neutrophil above 1000 Admission and Anticipated Discharge Date Admission Date: April 25, 2020 Subjective 64 yo female reports no signifcant changes. She states she has not had any bowel movements since being here, nor is she passing any gas. Patient is concerned that she may require surgery. Review of Systems Review of Systems: All systems reviewed & are unremarkable except as noted in HPI & below Physical Exam Physical Exam: Constitutional: WD/WN, vitals as above ENMT: external ear and nose normal, oropharynx normal Neck: trachea midline, no thyromegaly Respiratory: normal respiratory effort, lungs clear to auscultation Cardiovascular: RRR, no murmur, no edema Gastrointestinal (Abdomen): decreased bowel sounds, distended, not hard, nontender, no hepatosplenomegaly Neurologic: PERRL, EOMI, accommodation nl, no face palsy, no dysarthria Psychiatric: Orientation: alert, oriented to person and oriented to place Results & Data Results & Data ([facility]) Vital Signs (Past 12 Hours) Vital Signs Temp Pulse Resp BP Pulse Ox 04/28/20 07:00 36.5 C 70 19 133/78 98 04/27/20 22:58 36.9 C 70 16 125/74 96 PG Care Time/CCT Total # of Minutes Spent Total Time Spent with Patient: Total time spent is greater than 50% in coordination of care (as documented) at patient's floor/unit and/or counseling patient: Coding Level of Care Code 66180 Subseq Hosp Care Lvl 2 Diagnoses SBO (small bowel obstruction) K56.609 Ovarian cancer C56.9 History of breast cancer Z85.3 History of total hip replacement Z96.649 DVT prophylaxis Z29.9 Glaucoma H40.9 Neutropenia D70.9 Time Spent (min) 25
[2020-04-28] MEDS: ONDANSETRON INJ 2 MG/ML 2 ML VIAL IV PRN ×2 (10:34→18:18)
[2020-04-28] MEDS: ENOXAPARIN INJ 40 MG/0.4 ML SYR SQ SCH (20:54)
[2020-04-28] MEDS: LATANOPROST 0.005% OP SOLN 2.5 ML BTL OP SCH (20:54)
[2020-04-29] MEDS: D5W AND 1/2NSS + 20MEQ KCL 20 MEQ/1,000 ML BAG IV SCH ×3 (04:11→19:44)
[2020-04-29] MEDS: ONDANSETRON INJ 2 MG/ML 2 ML VIAL IV PRN (06:13)
--- NOTE | 2020-04-29 11:14 | Surgery Progress Note ---
Date of Service stable, some abdominal pain, no flatus or BM, NG 2100ml April 29, 2020 Assessment & Plan (1) SBO (small bowel obstruction): stable, base on her that due to her h/o ovarian cancer and carcinomatosis her surgery would be difficult and may need to perform a colostomy. Our hope is that patient can improve without surgical intervention. We will plan to continue conservative measures through the weekend and then will re-evaluate patient's needs for surgery next week if not improving. KUB in am repeat labs in am, will F/U Subjective Patient reports not feeling so well. Continues with ongoing nausea and some abdominal pain. No flatus or BM. Physical Exam Constitutional: WD/WN, vitals as above well developed and well nourished Eyes: PERRL, conjunctivae normal, anicteric sclerae ENMT: external ear and nose normal, oropharynx normal Neck: trachea midline, no thyromegaly Respiratory: normal respiratory effort, lungs clear to auscultation Cardiovascular: RRR, no murmur, no edema Gastrointestinal (Abdomen): Percussion/Palpation: abdomen soft mild tenderness and distend, BS +, no rebound pain, Musculoskeletal: no cyanosis or clubbing, extremities motor strength 5/5 Skin: no rashes, warm and dry Neurologic: awake Psychiatric: Orientation: alert and oriented x 3 Results & Data Vital Signs (Past 12 Hours) Vital Signs Temp Pulse Resp BP Pulse Ox 04/29/20 07:35 36.7 C 65 16 115/62 100 04/28/20 23:29 36.6 C 68 16 125/73 98 Diagnostic Findings XR KUB/Abdomen 1 view CLINICAL HISTORY: follow up bowel obstruction COMPARISON STUDY: 08/27/2018 FINDINGS: Slight small bowel distention. Contrast is identified within the cecum and ascending colon. Nasogastric tube within the gastric fundus. IMPRESSION: Slightly improved exam with a mild to moderate residual ileus. Nasogastric tube within the gastric fundus.
--- NOTE | 2020-04-29 12:13 | Consultation Report ---
DATE OF CONSULTATION: 04/29/2020 REASON FOR CONSULTATION: Pleasant 64-year-old female patient with metastatic ovarian cancer admitted on 04/25/2020 with subacute onset abdominal pain and small bowel obstruction. HISTORY OF PRESENT ILLNESS: Katelyn is a very pleasant 64-year-old female well known to [facility], currently under my care, recently diagnosed with stage IV ovarian carcinoma. The patient was recommended carboplatin and paclitaxel 3 weeks on fourth week off. Her initial chemotherapy was administered on 03/17/2020 and she was due to begin cycle #2 during hospitalization. She began to experience discomfort on Friday afternoon of last week, gradually becoming worse over the past couple of days and by Friday pain became so severe and she vomited a large quantity of bilious emesis, prompting her to come to the Emergency Room. CT scan of the abdomen and pelvis was part of the initial workup which revealed a small-bowel obstruction with transition point likely located in the deep pelvis. The peritoneal and omental enhancement has also improved suggestive of treatment response. NG tube was placed with copious amounts of gastric drainage. She is followed daily by KUB and general surgery, Dr. Malone is on consult. KUB done yesterday shows a slightly improved exam with mild to moderate residual ileus. Katelyn was originally diagnosed with ovarian cancer in 2007. She underwent debulking surgery followed by adjuvant chemotherapy suspected to be paclitaxel and carboplatin as this combination has been standard of care for many years. I saw her initially back in 02/2020 at which time had been in a general clinical decline and presented to her primary care physician complaining of abdominal fullness and associated nausea. CT scan of the abdomen and pelvis performed on 02/02/2020 indicated extensive peritoneal omental serosal implants along with moderate to large volume of abdominal pelvic ascites. Her initial CA-125 measured 1474. I had recommended rechallenge with carboplatin and paclitaxel, which unfortunately the paclitaxel specifically may have led to her ongoing ileus. PAST MEDICAL HISTORY: Includes ovarian cancer, depression, previous history of breast cancer, emphysema and lung nodule. PAST SURGICAL HISTORY: Include tendon sheath, left mastectomy, adenoids, hip replacement, rhinoplasty, total abdominal hysterectomy, bilateral salpingo-oophorectomy and tonsillectomy. MEDICATIONS: Prior to admission include oxycodone 5 mg p.o. b.i.d. p.r.n., Zofran 8 mg p.o. q. 8 hours, Latanoprost 1 drop ophthalmic at bedtime and she was also utilizing a pretreatment Decadron prior to receiving paclitaxel. ALLERGIES: NICKEL. 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 She has no children. She is presently single. FAMILY HISTORY: Mother of breast cancer. Father succumbed to head and neck cancer. REVIEW OF SYSTEMS: CONSTITUTIONAL: As per HPI, most notably for abdominal fullness, constipation, abdominal pain, nausea and bilious emesis. No fevers, chills or sweats. She developed anorexia prior to admission. No significant weight loss. SKIN: No rashes or lesions. No history of dermatoses. HEENT: She denies headaches, lightheadedness or dizziness. No acute visual or hearing deficits. No sinus symptoms, sore throat or dysphagia. LYMPH: No history of lymphoproliferative disease. CARDIAC: No history of coronary artery disease, no angina or palpitations. PULMONARY: Positive history of COPD/emphysema. She is not acutely short of breath or dyspneic on exertion. No cough or hemoptysis reported. GASTROINTESTINAL: As per HPI. GENITOURINARY: No hematuria, dysuria, urinary incontinence. PSYCHIATRIC: Positive for anxiety. Negative for schizophrenia or psychoses. ENDOCRINE: Negative for diabetes or thyroid disease. MUSCULOSKELETAL: No focal muscle weakness. No arthralgias. NEUROLOGIC: Negative for seizure, stroke, or migraine headache. HEMATOLOGIC: Positive for cytopenias attributable to prior chemotherapy. PHYSICAL EXAMINATION: GENERAL: Katelyn is her feisty self 64-year-old female in no acute distress. VITAL SIGNS: Temperature 36.7, pulse 65, respiratory rate 16, blood pressure 115/62. SKIN: Warm, dry, noncyanotic without petechia, rash or ecchymosis. HEENT: Head is atraumatic, normocephalic. Eyes: PERRLA, EOMI. Sclerae nonicteric. No conjunctival injection. Nares patent without rhinorrhea or discharge. Throat is clear. Tongue is midline. Mucous membranes are moist. NECK: Supple without JVD or thyromegaly. LYMPHATICS: No cervical, supraclavicular, axillary or inguinal palpable nodes. HEART: Regular rate and rhythm. No clicks, rubs, murmurs or gallops. LUNGS: Clear to auscultation bilaterally. ABDOMEN: Soft, slightly distended. No palpable tenderness, could not appreciate hepatosplenomegaly. Bowel sounds are hypoactive. EXTREMITIES: Musculoskeletal strength and pulses are equal in all 4 quadrants. No clubbing, cyanosis or edema. NEUROLOGICALLY: She is awake, alert and oriented x3. Cranial nerves are grossly intact. LABORATORY DATA: Peripheral blood counts from 04/28/2020, WBC 1910, hemoglobin 10.6, platelet count 204,000. Her absolute neutrophil count is 1000. BNP from 04/27/2020, sodium 139, potassium 3.9, chloride 109, carbon dioxide 29, BUN 11 and her creatinine 0.64. IMPRESSION: 1. Small-bowel obstruction. 2. Metastatic ovarian cancer. 3. Cytopenias attributable to chemotherapy. 4. Status post cycle 1 carboplatin and paclitaxel. PLAN: I met with Dr. Malone in the [facility] and he asked me to come by to talk to Katelyn about her current situation. Katelyn was recently diagnosed with disseminated metastatic ovarian cancer back in February and shortly thereafter was started on salvage paclitaxel and carboplatin. This lady was diagnosed back in 2007 and thus, very reasonable to rechallenge with a [place]-based doublet. Radiographically, it would appear that she may be responding, we will spot check CA 125 as her initial level was 1474 at diagnosis. I read Dr. Malone's clinical note he plans conservative measures over the weekend and may need to do corrective surgery on Friday if no improvement. At the bedside this morning there is quite a bit of gastric drainage and thus not terribly optimistic, she will improve dramatically in the short term. My hope is to resume chemotherapy at some point, but obviously she needs to be medically and surgically stable before proceeding. Thus, I agree with current medical/surgical management and have nothing further to add at this point. We will continue to visit with Katelyn intermittently during her hospitalization, wished her well and hopefully the obstruction will resolve without surgical intervention. ELIAS
[2020-04-29 15:48] LABS: Hematocrit (blood only) 32.1 % (37-47); Hemoglobin 10.7 g/dL (12.0-16.0); Mean Corpuscular Hemoglobin 30.9 pg (25-34); Mean Corpuscular Hgb Conc 33.3 g/dL (32-36); Mean Corpuscular Volume 92.8 fL (80-100); Mean Platelet Volume 8.3 fL (7.4-10.4); Platelet Count 228 K/uL (130-400); RDW Coefficient of Variation 19.4 % (11.5-14.5); Red Blood Count 3.46 M/uL (4.2-5.4); White Blood Count 2.32 K/uL (4.8-10.8)
[2020-04-29 16:11] LABS: BUN Creatinine Ratio 9.3 (10-20); Calcium 8.7 mg/dl (8.5-10.1); Creatinine Clr Calc Pharmacy 58.6 ml/min; Est GFR (African American) 102.6; Est GFR (Non-African American) 88.5; Potassium 3.9 mmol/L (3.5-5.1)
[2020-04-29] MEDS: ENOXAPARIN INJ 40 MG/0.4 ML SYR SQ SCH (20:16)
[2020-04-29] MEDS: LATANOPROST 0.005% OP SOLN 2.5 ML BTL OP SCH (20:17)
--- NOTE | 2020-04-29 22:33 | Hospitalist Progress Note ---
Date of Service April 29, 2020 Assessment & Plan (1) SBO (small bowel obstruction): admit to Medical NPO, continue NG tube on intermittent suction. continue pain med will continue IVF as well. Continues to drain dark colored fluid. Will continue conservative management at this time. SBO (small bowel obstruction): As noted on CT - IV morphine PRN pain - IV ondansetron PRN nausea will hold antibiotics at this time. - Monitor vitals and CBC (2) Ovarian cancer: Patient has history of this and is currently being treated by Onoclogy. Given neutropenia, will hold off chemotherapy after discussion with Dr. Thurman. (3) History of breast cancer: stable. (4) History of total hip replacement: stable (5) DVT prophylaxis: lovenox (6) Glaucoma: - Continue home drops of travoprost (if non-formulary, patient has brought in her own drops, please facilitate administration) (7) Neutropenia: likely secondary to chemotherapy. will monitor. WBC is improving Neutrophil above 1000 Admission and Anticipated Discharge Date Admission Date: April 25, 2020 Subjective 64 yo female reports feeling well. She has no new complaints at this time. She states her belly feels softer, and she is in less pain. Review of Systems Review of Systems: All systems reviewed & are unremarkable except as noted in HPI & below Physical Exam Physical Exam: Constitutional: WD/WN, vitals as above ENMT: external ear and nose normal, oropharynx normal Neck: trachea midline, no thyromegaly Respiratory: normal respiratory effort, lungs clear to auscultation Cardiovascular: RRR, no murmur, no edema Gastrointestinal (Abdomen): decreased bowel sounds, less distended, less tense, nontender, no hepatosplenomegaly Neurologic: PERRL, EOMI, accommodation nl, no face palsy, no dysarthria Psychiatric: Orientation: alert, oriented to person and oriented to place Results & Data Results & Data ([facility]) Vital Signs (Past 12 Hours) Vital Signs Temp Pulse Resp BP Pulse Ox 04/29/20 15:15 36.7 C 72 17 112/60 99 PG Care Time/CCT Total # of Minutes Spent Total Time Spent with Patient: Total time spent is greater than 50% in coordination of care (as documented) at patient's floor/unit and/or counseling patient: Coding Level of Care Code 47132 Subseq Hosp Care Lvl 2 Diagnoses SBO (small bowel obstruction) K56.609 Ovarian cancer C56.9 History of breast cancer Z85.3 History of total hip replacement Z96.649 DVT prophylaxis Z29.9 Glaucoma H40.9 Neutropenia D70.9 Time Spent (min) 25
[2020-04-30] MEDS: D5W AND 1/2NSS + 20MEQ KCL 20 MEQ/1,000 ML BAG IV SCH ×3 (04:00→19:11)
[2020-04-30 08:07] LABS: Basophils # (auto) 0.02 K/uL (0-0.2); Basophils % (auto) 0.8 %; Eosinophils # (auto) 0.05 K/uL (0-0.5); Eosinophils % (auto) 2.1 %; Hematocrit (blood only) 33.6 % (37-47); Hemoglobin 10.7 g/dL (12.0-16.0); Lymphocytes # (auto) 0.67 K/uL (1.2-3.4); Lymphocytes % (auto) 28.4 %; Mean Corpuscular Hemoglobin 30.2 pg (25-34); Mean Corpuscular Hgb Conc 31.8 g/dL (32-36); Mean Corpuscular Volume 94.9 fL (80-100); Mean Platelet Volume 8.1 fL (7.4-10.4); Monocytes # (auto) 0.31 K/uL (0.11-0.59); Monocytes % (auto) 13.1 %; Neutrophils # (auto) 1.31 K/uL (1.4-6.5); Neutrophils % (auto) 55.6 %; Platelet Count 258 K/uL (130-400); RDW Coefficient of Variation 19.6 % (11.5-14.5); RDW Standard Deviation 66.3 fL (36.4-46.3); Red Blood Count 3.54 M/uL (4.2-5.4); White Blood Count 2.36 K/uL (4.8-10.8)
[2020-04-30 08:29] LABS: Calcium 8.5 mg/dl (8.5-10.1); Creatinine Clr Calc Pharmacy 60.2 ml/min; Est GFR (African American) 106.1; Est GFR (Non-African American) 91.6
--- NOTE | 2020-04-30 11:50 | Surgery Progress Note ---
Date of Service stable, not pass gas or BM yet, no significant abdominal pain, NG tube - 970ml, no fever, April 30, 2020 Assessment & Plan (1) SBO (small bowel obstruction): stable, base on her that due to her h/o ovarian cancer and carcinomatosis her surgery would be difficult and may need to perform a colostomy. Our hope is that patient can improve without surgical intervention. We will plan to continue conservative measures through the weekend and then will re-evaluate patient's needs for surgery next week if not improving. KUB in am repeat labs in am, will F/U 04/30/2020 11:51AM stable, no emergent surgical indication now, continue conservative treatment, repeat KUB in am, will F/U Subjective Patient reports not feeling so well. Continues with ongoing nausea and some abdominal pain. No flatus or BM. Physical Exam Constitutional: WD/WN, vitals as above well developed and well nourished Eyes: PERRL, conjunctivae normal, anicteric sclerae ENMT: external ear and nose normal, oropharynx normal Neck: trachea midline, no thyromegaly Respiratory: normal respiratory effort, lungs clear to auscultation Cardiovascular: RRR, no murmur, no edema Gastrointestinal (Abdomen): Percussion/Palpation: abdomen soft NT, ND, BS + Musculoskeletal: no cyanosis or clubbing, extremities motor strength 5/5 Skin: no rashes, warm and dry Neurologic: awake Psychiatric: Orientation: alert and oriented x 3 Results & Data Vital Signs (Past 12 Hours) Vital Signs Temp Pulse Resp BP Pulse Ox Pulse Ox 04/30/20 07:30 36.6 C 50 L 16 123/77 97 04/30/20 00:35 96
[2020-04-30] MEDS: ENOXAPARIN INJ 40 MG/0.4 ML SYR SQ SCH (20:38)
[2020-04-30] MEDS: LATANOPROST 0.005% OP SOLN 2.5 ML BTL OP SCH (20:39)
--- NOTE | 2020-04-30 23:27 | Hospitalist Progress Note ---
Date of Service April 30, 2020 Assessment & Plan (1) SBO (small bowel obstruction): admit to Medical NPO, continue NG tube on intermittent suction. continue pain med will continue IVF as well. Continues to drain dark colored fluid. Her belly though continues to become softer each day. Surgery will reassess on friday if she will need a surgical procedure. Will continue conservative management at least for another day. SBO (small bowel obstruction): As noted on CT - IV morphine PRN pain - IV ondansetron PRN nausea will hold antibiotics at this time. - Monitor vitals and CBC (2) Ovarian cancer: Patient has history of this and is currently being treated by Onoclogy. Given neutropenia, will hold off chemotherapy temporarily unitl patient clinically improves. Had discussion with Dr. Thurman. (3) History of breast cancer: stable. (4) History of total hip replacement: stable (5) DVT prophylaxis: lovenox (6) Glaucoma: - Continue home drops of travoprost (if non-formulary, patient has brought in her own drops, please facilitate administration) (7) Neutropenia: likely secondary to chemotherapy. will monitor. WBC is improving Neutrophil, still below 1500 (8) Disseminated ovarian cancer: Admission and Anticipated Discharge Date Admission Date: April 25, 2020 Subjective Patient reports feeling better. No nausea, wants to shower. Review of Systems Review of Systems: All systems reviewed & are unremarkable except as noted in HPI & below Physical Exam Physical Exam: Constitutional: WD/WN, vitals as above ENMT: external ear and nose normal, oropharynx normal Neck: trachea midline, no thyromegaly Respiratory: normal respiratory effort, lungs clear to auscultation Cardiovascular: RRR, no murmur, no edema Gastrointestinal (Abdomen): decreased bowel sounds, less distended, less tense, nontender, no hepatosplenomegaly Neurologic: PERRL, EOMI, accommodation nl, no face palsy, no dysarthria Psychiatric: Orientation: alert, oriented to person and oriented to place Results & Data Results & Data ([facility]) Vital Signs (Past 12 Hours) Vital Signs Temp Pulse Resp BP Pulse Ox 04/30/20 15:35 36.5 C 71 17 121/70 99 PG Care Time/CCT Total # of Minutes Spent Total Time Spent with Patient: Total time spent is greater than 50% in coordination of care (as documented) at patient's floor/unit and/or counseling patient: Coding Level of Care Code 36761 Subseq Hosp Care Lvl 2 Diagnoses SBO (small bowel obstruction) K56.609 Ovarian cancer C56.9 History of breast cancer Z85.3 History of total hip replacement Z96.649 DVT prophylaxis Z29.9 Glaucoma H40.9 Neutropenia D70.9 Disseminated ovarian cancer C56.9 Time Spent (min) 25
[2020-05-01] MEDS: D5W AND 1/2NSS + 20MEQ KCL 20 MEQ/1,000 ML BAG IV SCH ×3 (03:33→23:55)
[2020-05-01 06:32] LABS: Creatinine Clr Calc Pharmacy 63.9 ml/min; Est GFR (African American) 108.2; Est GFR (Non-African American) 93.4
--- NOTE | 2020-05-01 06:54 | Surgery Progress Note ---
Date of Service May 01, 2020 Assessment & Plan (1) SBO (small bowel obstruction): May 01, 2020 We will await KUB that was ordered this morning the last one she had showed some progression of the contrast into the right colon If she does not open up today strong consideration to take her to surgery will will reevaluate her in the morning Also mentioned to her that if she does not regain her GI function soon that we may need to start hyperalimentation Hospital day#3 here with small bowel obstruction Patient underwent SBFT yesterday, but refused to finish it out KUB this AM reveals slightly improved exam with some contrast in the cecum and ascending colon, however pt continues to be symptomatic and has not had any return of bowel function NGT >3L output Discussed with her that due to her h/o ovarian cancer and carcinomatosis her surgery would be difficult and may need to perform a colostomy. Our hope is that patient can improve without surgical intervention. We will plan to continue conservative measures through the weekend and then will re-evaluate patient's needs for surgery next week if not improving Will ask oncology to see patient, Dr. Thurman aware Pt seen and examined with Dr. Faisal Tran surgery covering over the weekend Subjective May 01, 2020 The patient is well frustrated that she is not getting well soon enough she feels like Some rumbling in the belly and hopefully she will move her bowels and we can take the NG tube out Patient reports not feeling so well. Continues with ongoing nausea and some abdominal pain. No flatus or BM. Physical Exam Physical Exam: Her tongue is moist well hydrated Her abdomen is much softer than it had been with no localized tenderness Results & Data Vital Signs (Past 12 Hours) Vital Signs Temp Pulse Resp BP Pulse Ox Pulse Ox 05/01/20 00:20 96 04/30/20 23:43 36.4 C L 69 14 124/72 96 PG Care Time/CCT Total # of Minutes Spent Total Time Spent with Patient: Total time spent is greater than 50% in coordination of care (as documented) at patient's floor/unit and/or counseling patient: Coding Level of Care Code 50821 Subseq Hosp Care Lvl 3 Diagnoses SBO (small bowel obstruction) K56.609
--- NOTE | 2020-05-01 07:44 | XRay Report ---
KUB HISTORY: Small bowel obstruction. Follow-up. COMPARISON: KUB 04/28/2020. FINDINGS: Nasogastric tube terminates in the stomach. There is a right total arthroplasty. No renal calculi. No ureteral calculi. Calcifications in the deep pelvis likely represent phleboliths. These r emain unchanged. Oral contrast is seen within the proximal colon. Multiple mildly dilated gas within loops of small bowel persist. These measure up to 4.3 cm in diameter. This is similar to the prior st udy. No pneumoperitoneum or pneumatosis. IMPRESSION: 1. No change in the partial small bowel obstruction. 2. Nasogastric tube terminates in the stomach. ACT 112: Negative or not required by law. Electronically signed by: Maurilio Boothe M.D. 05/01/2020 7:43 AM
--- NOTE | 2020-05-01 08:38 | Wound Consultation ---
Date of Consultation April 27, 2020 Assessment & Plan (1) Splinter in skin: This is a 64-year-old female admitted with small bowel obstruction found to have a splinter in her right middle finger. After obtaining permission topical Xylocaine was applied. Using forceps the splinter was removed. Patient tolerated the procedure well with no complications. This represents removal of foreign body. Can apply Band-Aid to the wound. Thank you for allow me to participate in the care of this patient. Please not hesitate to call with any further questions. History of Present Illness Reason for Consultation: foreign body Attending Physician: Ranjit Fischer MD History of Present Illness This is a 64-year-old female with past medical history of breast cancer status post mastectomy, ovarian cancer status post hysterectomy, glaucoma, remote history of Giardia who is admitted with small bowel obstruction. She is found to have a spot on her right middle finger. Patient reports she was working in her garden but is unsure which putnam it was from. Patient has no other complaints at this time. Allergies Allergy/AdvReac Type Severity Reaction Status Date / Time nickel Allergy Intermediate RASH,ITCHIN Verified 04/25/20 15:52 G Home Medications Home Medications Medication Instructions Recorded Confirmed Type latanoprost 1 drp OPHTHALMIC (EYE) HS 02/02/20 04/25/20 History ondansetron HCl 8 mg tablet 8 mg PO Q8H PRN 02/24/20 04/25/20 History oxycodone 5 mg capsule 5 mg PO BID PRN 02/24/20 04/25/20 History dexamethasone [Decadron] 10 mg PO UD 04/25/20 04/25/20 History Patient History Medical History Ascites r/t cancer- s/p "successful" ultrasound guided paracentesis with removal of approximately 2.1 liters of ascitic fluid" per 02/22/20 [facility] report Emphysema lung per PCP records Glaucoma History of blood clots DURING CHEMO TREATMENT (WAS ON BLOOD THINNER) History of breast cancer 1998 s/p mastectomy/chemo History of chemotherapy History of ovarian cancer (Acute) initial dx 2007 SBO (small bowel obstruction) (Acute) hx per records Trigger finger of right hand (Acute) repaired per patient. Surgical History H/O mastectomy Left H/O rhinoplasty Deviated septum H/O total hysterectomy History of appendectomy History of tonsillectomy and adenoidectomy History of total hip replacement RT History of vascular access device A PORT INSERTION/REMOVAL Family History Mother Breast cancer Cancer Stroke Sister Breast cancer Cancer Father Cancer Other No significant family history Social History Preferred Language: Honduran Communication Ability: Effective Radiologic Technologist Required: No Beliefs That Will Affect Care: None marital status: / Current Living Situation: Alone Feels Safe at Home: Yes Smoking Status: Former smoker Tobacco Type: cigarettes ; Second Hand Exposure: Yes ; Hx Alcohol Use: No Hx Substance Use: No Review of Systems Review of Systems: All systems reviewed & are unremarkable except as noted in HPI & below Physical Exam Constitutional: WD/WN, vitals as above Skin: Wound measuring as recorded in nursing documentation. Possible foreign body right middle finger. Neurologic: awake; not confused Psychiatric: A+Ox3, euthymic affect Results & Data Vital Signs (Past 12 Hours) Vital Signs Temp Pulse Pulse Resp BP Pulse Ox Pulse Ox 05/01/20 07:18 36.7 C 65 18 105/66 96 05/01/20 00:20 96 04/30/20 23:43 36.4 C L 69 14 124/72 96 PG Care Time/CCT Total # of Minutes Spent Total Time Spent with Patient: Total time spent is greater than 50% in coordination of care (as documented) at patient's floor/unit and/or counseling patient: Coding Level of Care Code 08893 Inpt Consult Level 2 Diagnoses Splinter in skin T14.8XXA
--- NOTE | 2020-05-01 14:01 | Progress Notes ---
DATE: 05/01/2020 ONCOLOGY PROGRESS NOTE DIAGNOSES: 1. Small-bowel obstruction. 2. Metastatic ovarian cancer. 3. Cytopenias attributable to chemotherapy. 4. Status post cycle 1 carboplatin and paclitaxel. SUBJECTIVE: Katelyn was seen and examined at bedside this afternoon. Katelyn is obviously frustrated and vented for a good 20 minutes regarding her lack of progress. I advised her that resolution of the small-bowel obstruction as bad as hers was takes time. Agree with Dr. Malone's approach to take slow conservative measures and hopefully can avoid surgery. I am also anxious to resume her chemotherapy as radiographically, it would appear that even after one cycle, her omental nodules have become smaller. Thus, I ordered a CA-125 and waiting for results. I also agree at some point that we may need to start enteral nutrition, at this point it would most likely be total parenteral nutrition. The patient looks well otherwise. She appears to be comfortable. Nursing reports no overnight difficulties. OBJECTIVE: GENERAL: A very pleasant 64-year-old female in no acute distress. VITAL SIGNS: Temperature 36.7, pulse 65, respiratory rate 18, blood pressure 105/66. SKIN: Without rash or lesion. HEENT: Oral mucosa without erythema or ulceration. HEART: Regular rate and rhythm. LUNGS: Clear to auscultation bilaterally. ABDOMEN: Her belly is not distended. It is firm specifically around the umbilicus. Bowel sounds are hypoactive. EXTREMITIES: No clubbing, cyanosis or edema. NEUROLOGIC: Grossly intact. LABORATORY DATA: Peripheral counts from 04/30/2020, WBCs 2360, hemoglobin 10.7, platelet count 258,000, absolute neutrophil count is 1300. Creatinine 0.66. CA-125 pending. IMPRESSION: 1. Small-bowel obstruction. 2. Metastatic ovarian cancer. 3. Cytopenias attributable to previous chemotherapy. 4. Status post cycle 1 carboplatin and paclitaxel. PLAN: I reviewed Dr. Malone's note from today. Agree with continuing conservative measures as he is not anxious to perform surgery on Katelyn. I tried to encourage her to keep her on point and focus to consider continuing chemotherapy as I believe I could achieve some remission for her and thus I am anxious to see her get better. We will await CA-125 result in hopes of encouraging Katelyn even further. CT scan from admission was reviewed and I believe her omental nodules have already gotten a little bit smaller, but much too early to make prediction overall. I spent most of today's encounter encouraging her to stay with it and truly understand her frustration. ELIAS
--- NOTE | 2020-05-01 14:57 | Hospitalist Progress Note ---
Date of Service May 01, 2020 Assessment & Plan (1) SBO (small bowel obstruction): CT a/p on 04/25 showed small bowel obstruction with the transition point likely located in the deep pelvis. Likely a result of her metastatic ovarian cancer or possibly adhesions from prior surgery. - Presently NPO with NG tube on suction - Surgery following -> Quite likely to need surgery, though attempting to avoid it if possible as she might need a colostomy which she does not want. - Surgery recommending TPN; however, patient presently refusing as she "doesn't feel hungry or weak." We did try to discuss how it will help keep her energy up and help with healing if she needs surgery, but she deferred today. - Monitor; discussed with surgery today. - Will trial dexamethasone today in discussion with oncology and palliative care. (2) Disseminated ovarian cancer: Originally diagnosed in 2007 with surgery and adjuvant chemotherapy. No recurrence since then, but patient has had loss of appetite and bloating for several weeks prior to presentation. - Presently undergoing chemothearpy with Dr. Thurman who feels she is responding well if we can overcome side-effects. - Discussed with oncology (Dr. Thurman) on 05/01 - Palliative care consulted (3) DVT prophylaxis: High risk given cancer - Lovenox 40 mg SQ daily Admission and Anticipated Discharge Date Admission Date: April 25, 2020 Subjective Quite upset this morning. She feels she has been here for a week and not improved at all. She does not feel like anything is happening. She is also tearful and feels like she "deserves" her cancer for smoking. Physical Exam Constitutional: WD/WN, vitals as above Eyes: EOM intact bilaterally; no conjunctival abnormality ENMT: Nose: + foreign body in naris (NG tube) Neck: trachea midline, no thyromegaly normal visual inspection Respiratory: normal respiratory effort, lungs clear to auscultation no respiratory distress Cardiovascular: RRR, no murmur, no edema Gastrointestinal (Abdomen): Inspection/Auscultation: abdomen normal to inspection; abdomen not distended Musculoskeletal: no cyanosis or clubbing, extremities motor strength 5/5 Skin: no rashes, warm and dry Neurologic: moves all extremities and awake Psychiatric: Orientation: alert, oriented to person and cooperative Affect: + tearful affect Results & Data Results & Data ([facility]) Vital Signs (Past 12 Hours) Vital Signs Temp Pulse Resp BP Pulse Ox 05/01/20 07:18 36.7 C 65 18 105/66 96 PG Care Time/CCT Total # of Minutes Spent Total Time Spent with Patient: Total time spent is greater than 50% in coordination of care (as documented) at patient's floor/unit and/or counseling patient: Coding Level of Care Code 95793 Subseq Hosp Care Lvl 3 Diagnoses SBO (small bowel obstruction) K56.609 Disseminated ovarian cancer C56.9 DVT prophylaxis Z29.9
[2020-05-01] MEDS: dexAMETHasone 2 MG in SYRINGE 0 ML IV SCH ×2 (15:42→20:23)
[2020-05-01] MEDS: LATANOPROST 0.005% OP SOLN 2.5 ML BTL OP SCH (20:20)
[2020-05-01] MEDS: ENOXAPARIN INJ 40 MG/0.4 ML SYR SQ SCH (20:20)
[2020-05-02 05:51] LABS: Hemoglobin 10.4 g/dL (12.0-16.0); Mean Corpuscular Hgb Conc 32.5 g/dL (32-36); Mean Corpuscular Volume 95.2 fL (80-100); Mean Platelet Volume 8.3 fL (7.4-10.4); Platelet Count 274 K/uL (130-400); RDW Coefficient of Variation 19.8 % (11.5-14.5); RDW Standard Deviation 67.5 fL (36.4-46.3); Red Blood Count 3.36 M/uL (4.2-5.4)
[2020-05-02 06:22] LABS: Albumin Level 2.3 gm/dl (3.4-5.0); BUN Creatinine Ratio 6.9 (10-20); Calcium 8.1 mg/dl (8.5-10.1); Creatinine Clr Calc Pharmacy 63.9 ml/min; Est GFR (African American) 108.2; Est GFR (Non-African American) 93.4; Magnesium 1.8 mg/dl (1.8-2.4); Potassium 3.8 mmol/L (3.5-5.1)
--- NOTE | 2020-05-02 06:23 | Surgery Progress Note ---
Date of Service May 02, 2020 Assessment & Plan (1) SBO (small bowel obstruction): May 02, 2020 This is seventh day since admission Patient had refused hyperalimentation yesterday so far she does not want surgery she just wants to go home I told her that going home she will continue vomiting and progressively get weaker and I asked her to discuss it further with the medical service perhaps they can help her make a decision for the time being we will continue with the NG and fluid status I discussed with her also that her cancer appears to be responding to chemo May 01, 2020 We will await KUB that was ordered this morning the last one she had showed some progression of the contrast into the right colon If she does not open up today strong consideration to take her to surgery will will reevaluate her in the morning Also mentioned to her that if she does not regain her GI function soon that we may need to start hyperalimentation Hospital day#3 here with small bowel obstruction Patient underwent SBFT yesterday, but refused to finish it out KUB this AM reveals slightly improved exam with some contrast in the cecum and ascending colon, however pt continues to be symptomatic and has not had any return of bowel function NGT >3L output Discussed with her that due to her h/o ovarian cancer and carcinomatosis her surgery would be difficult and may need to perform a colostomy. Our hope is that patient can improve without surgical intervention. We will plan to continue conservative measures through the weekend and then will re-evaluate patient's needs for surgery next week if not improving Will ask oncology to see patient, Dr. Thurman aware Pt seen and examined with Dr. Faisal Tran surgery covering over the weekend Subjective Patient is resting comfortably NG tube in place continues to have moderate drainage she denies having passed any flatus or bowel movement he is a little frustrated that she is not getting better and she really does not know what to do she is refused surgery so far she just wants to go home Patient reports not feeling so well. Continues with ongoing nausea and some abdominal pain. No flatus or BM. Physical Exam Constitutional: Patient abdomen is slightly distended is nontender NG tube is dark green drainage Results & Data Vital Signs (Past 12 Hours) Vital Signs Temp Pulse Resp BP Pulse Ox 05/01/20 23:15 36.6 C 66 18 120/69 98 PG Care Time/CCT Total # of Minutes Spent Total Time Spent with Patient: Total time spent is greater than 50% in coordination of care (as documented) at patient's floor/unit and/or counseling patient: Coding Level of Care Code 02994 Subseq Hosp Care Lvl 3 Diagnoses SBO (small bowel obstruction) K56.609
[2020-05-02 06:24] LABS: Albumin Globulin Ratio 0.7 (0.9-2); Bilirubin,Total 0.2 mg/dl (0.2-1); Globulin 3.3 gm/dl (2.5-4.0); Phosphorus 3.8 mg/dl (2.5-4.9); Total Protein 5.6 gm/dl (6.4-8.2)
[2020-05-02] MEDS: dexAMETHasone 2 MG in SYRINGE 0 ML IV SCH (08:18)
--- NOTE | 2020-05-02 11:13 | Palliative Care Consultation ---
Date of Consultation May 02, 2020 Assessment & Plan (1) Goals of care, counseling/discussion: -64 year old female patient with PMH breast cancer status post mastectomy, ovarian cancer first dx 2007, status post hysterectomy, recurrence of ovarian cancer currently undergoing treatment, carcinomatosis, glaucoma, remote history of Giardia infection treated with Flagyl presented to the ED seven days ago with bilateral lower abdominal pain. Imaging revealed SBO. Patient has been treated conservatively for a week now with NG tube, IVF and bowel rest. She has not opened up yet. Surgery and heme/onc are following. Edwina's metastatic disease does actually seem to be responding to treatment-- oncologist believes omental nodes appear smaller already. CA 125 was 1474 at time of diagnosis, and a spot check level is currently pending to assess progress. Patient is understandably frustrated and told the surgeon today that she didn't want TPN or surgery and just wanted to go home. Heme/onc is hoping that patient will recover from this, as he believes some remission could be achieved. Palliative care is consulted to discuss goals of care. -Patient to be seen and examined by palliative MD this afternoon. -Case management and nursing notes reviewed. Patient plans to go home upon discharge where she lives alone independently. Her POA is Rain Eason, her [id number]. -Obviously if patient wishes to go home, her could, and likely would, be imminent. She would likely continue to vomit and experience pain. This would be difficult to manage at home and patient would certainly need hospice if this was her wish. Some hospice agencies can provide NG tubes to suction at home. Patient would need someone with her 16/06 to administer medications and care for her. -If patient is willing to push through, start TPN/PPN, wait for bowels to open up, can continue current treatment. Surgery is following and is determining whether or not surgery is needed. Patient's preference is to not undergo surgery of course. Waiting for CA 125 to result so that we can hopefully encourage patient if it is lower. Again, oncologist believes her metastatic disease is showing improvement. -Further discussion and recommendations to follow after palliative MD speaks with patient. (2) SBO (small bowel obstruction): (3) Ovarian cancer: Supervising Physician Co-Signing Physician Notes Chart reviewed, patient seen and examined. Collaborated with BRANDON Avila Went to see patient x2-was still in the OR, saw patient at approximately 5 PM after returning from the OR-has NG tube in place. Patient awake and alert, no acute distress. Patient states her outlook is more positive-now that she has undergone successful surgery and does not have a colostomy. Patient eager to resume her chemotherapy when recovered from her surgery. PE: Patient awake, alert and oriented, no acute distress. Patient thin and cachectic HEENT: EOMI, NG tube to suction in place draining green thick fluid, hearing within normal limits Respirations: Nonlabored, clear breath sounds CV: Regular rate, no edema Abdomen: Soft, nontender to light palpation, surgical dressing clean dry and intact Neuro: Alert and oriented x4 Agree with above note, assessment and plan as per BRANDON Avila. We will continue to follow, will offer outpatient palliative follow-up when needed. History of Present Illness Attending Physician: Ranjit Fischer MD History of Present Illness This 64 year old female patient with PMH breast cancer status post mastectomy, ovarian cancer first dx 2007, status post hysterectomy, recurrence of ovarian cancer currently undergoing treatment, carcinomatosis, glaucoma, remote history of Giardia infection treated with Flagyl presented to the ED seven days ago with bilateral lower abdominal pain. Imaging revealed SBO. Patient has been treated conservatively for a week now with NG tube, IVF and bowel rest. She has not opened up yet. Surgery and heme/onc are following. Patietn's metastatic disease does actually seem to be responding to treatment-- oncologist believes omental nodes appear smaller already. CA 125 was 1474 at time of diagnosis, and a spot check level is currently pending to assess progress. Patient is understandably frustrated and told the surgeon today that she didn't want TPN or surgery and just wanted to go home. Heme/onc is hoping that patient will recover from this, as he believes some remission could be achieved. Palliative care is consulted to discuss goals of care. Thank you kindly for this consult. Palliative care team will follow as needed. Allergies Allergy/AdvReac Type Severity Reaction Status Date / Time nickel Allergy Intermediate RASH,ITCHIN Verified 04/25/20 15:52 G Home Medications Home Medications Medication Instructions Recorded Confirmed Type latanoprost 1 drp OPHTHALMIC (EYE) HS 02/02/20 04/25/20 History ondansetron HCl 8 mg tablet 8 mg PO Q8H PRN 02/24/20 04/25/20 History oxycodone 5 mg capsule 5 mg PO BID PRN 02/24/20 04/25/20 History dexamethasone [Decadron] 10 mg PO UD 04/25/20 04/25/20 History Patient History Medical History Ascites r/t cancer- s/p "successful" ultrasound guided paracentesis with removal of approximately 2.1 liters of ascitic fluid" per 02/22/20 [facility] report Emphysema lung per PCP records Glaucoma History of blood clots DURING CHEMO TREATMENT (WAS ON BLOOD THINNER) History of breast cancer 1998 s/p mastectomy/chemo History of chemotherapy History of ovarian cancer (Acute) initial dx 2007 SBO (small bowel obstruction) (Acute) hx per records Trigger finger of right hand (Acute) repaired per patient. Surgical History H/O mastectomy Left H/O rhinoplasty Deviated septum H/O total hysterectomy History of appendectomy History of tonsillectomy and adenoidectomy History of total hip replacement RT History of vascular access device A PORT INSERTION/REMOVAL Family History Mother Breast cancer Cancer Stroke Sister Breast cancer Cancer Father Cancer Other No significant family history Social History Preferred Language: Portuguese Communication Ability: Effective Procedures Rn Required: No Beliefs That Will Affect Care: None marital status: / Current Living Situation: Alone Feels Safe at Home: Yes Smoking Status: Former smoker Tobacco Type: cigarettes ; Second Hand Exposure: Yes ; Hx Alcohol Use: No Hx Substance Use: No Results & Data Vital Signs (Past 12 Hours) Vital Signs Temp Pulse Resp BP Pulse Ox 05/02/20 07:05 36.7 C 70 16 115/77 97 05/01/20 23:15 36.6 C 66 18 120/69 98 Coding Level of Care Code 64965 Inpt Consult Level 2 Diagnoses Goals of care, counseling/discussion Z71.89 SBO (small bowel obstruction) K56.609 Ovarian cancer C56.9 Time Spent (min) 50 Time Spent Midlevel A total of 50 minutes spent by this MUSIC VIDEO DIRECTOR in reviewing chart, speaking with physicians and IDT regarding patient condition, plan of care and goals.
[2020-05-02] MEDS: D5W AND 1/2NSS + 20MEQ KCL 20 MEQ/1,000 ML BAG IV SCH (12:33)
[2020-05-02] MEDS ORDERED: fentaNYL citrate 100 MCG/2 ML VIAL ONE ×2 (12:38)
--- NOTE | 2020-05-02 12:40 | History & Physical Bridge Note ---
Date of Service May 02, 2020 History & Physical Bridge Note I have examined the patient, reviewed the History & Physical and in the interval since the performance of the History & Physical I have noted the following changes of clinical significance: no changes noted This is a follow-up visit the patient at this time consented to surgery therefore will proceed accordingly for exploratory lap possible bowel resection possible colostomy all questions were answered consent was signed risk and complication of the surgery were explained to her and she is agreeable
--- NOTE | 2020-05-02 13:14 | Anesthesiology Consultation ---
Date of Service May 02, 2020 Assessment & Plan Chart Review Chart Review: Acceptable Risk for Surgery and Patient NOT seen in Pre Admission Testing Consults Requested none ASA [id number] Proposed Anesthesia Anesthesia Type: General Anesthesia Line Insertion: Arterial line Risk / Benefits Reviewed With: PT / POA / Parent / Guardian, Accepts Plan and Informed Consent Obtained History Surgery Operation Date: 05/02/20 14:00 Proposed Procedures p Exploratory Laparotomy Possible Bowel Resection - Mookie Malone MD Height/Weight Height: 5 ft 4 in Weight: 47 kg Allergies Allergy/AdvReac Type Severity Reaction Status Date / Time nickel Allergy Intermediate RASH,ITCHIN Verified 04/25/20 15:52 G Medications Home Medications Medication Instructions Recorded Confirmed Last Taken latanoprost 1 drp OPHTHALMIC (EYE) HS 02/02/20 04/25/20 02/27/20 18:00 ondansetron HCl 8 mg tablet 8 mg PO Q8H PRN 02/24/20 04/25/20 Unknown oxycodone 5 mg capsule 5 mg PO BID PRN 02/24/20 04/25/20 Unknown dexamethasone [Decadron] 10 mg PO UD 04/25/20 04/25/20 Unknown Active Medications Generic Name Dose Route Start Last Admin Trade Name Freq PRN Reason Stop Dose Admin Enoxaparin Sodium 40 mg 04/25/20 21:00 05/01/20 20:20 Lovenox SQ 05/25/20 20:59 40 mg Q24H IVY Administration Latanoprost 1 drops 04/25/20 21:00 05/01/20 20:20 Xalatan Oph OP 05/25/20 20:59 1 drops HS IVY Administration Morphine Sulfate 2 mg 04/25/20 18:04 04/27/20 13:26 Morphine Sulfate IV 05/09/20 18:03 2 mg Q3H PRN Administration Moderate Pain Morphine Sulfate 4 mg 04/25/20 18:04 04/26/20 20:38 Morphine Sulfate IV 05/09/20 18:03 4 mg Q3H PRN Administration Severe Pain Ondansetron HCl 4 mg 04/25/20 18:05 04/29/20 06:13 Zofran IV 05/25/20 18:04 4 mg Q6H PRN Administration Nausea NPO Date Last Intake of Fluids: 05/01/20 Time Last Intake of Fluids: 23:59 Date Last Intake of Solids: 04/25/20 Past Medical History Medical History Ascites r/t cancer- s/p "successful" ultrasound guided paracentesis with removal of approximately 2.1 liters of ascitic fluid" per 02/22/20 [facility] report Emphysema lung per PCP records Glaucoma History of blood clots DURING CHEMO TREATMENT (WAS ON BLOOD THINNER) History of breast cancer 1998 s/p mastectomy/chemo History of chemotherapy History of ovarian cancer (Acute) initial dx 2007 SBO (small bowel obstruction) (Acute) hx per records Trigger finger of right hand (Acute) repaired per patient. Exercise / Class Metabolic Activity III < 4 Walking/Shop/Light housework Past Family History Family History Mother Breast cancer Cancer Stroke Sister Breast cancer Cancer Father Cancer Other No significant family history Past Surgical History Surgical History H/O mastectomy Left H/O rhinoplasty Deviated septum H/O total hysterectomy History of appendectomy History of tonsillectomy and adenoidectomy History of total hip replacement RT History of vascular access device A PORT INSERTION/REMOVAL Past Anesthesia History No Hx of Anesthesia Complications and No Family Hx of Anesthesia Complications History of PONV No Hx of PONV and No Hx of Motion Sickness Social History Smoking Status: Former smoker tobacco type: cigarettes Smoking End Date: 1998 Hx Alcohol Use: No Hx Substance Use: No substance use type: does not use Physical Exam Vital Signs Last Vital Signs Temp 36.9 C 05/02/20 12:59 Pulse 69 05/02/20 12:59 Resp 16 05/02/20 12:59 BP 154/77 H 05/02/20 12:59 Pulse Ox 100 05/02/20 12:59 Constitutional + cachectic ENMT Mouth: + small oral opening; no dentition abnormality Thyromental Distance: < 3.5 Finger Breadths Mallampati Class: II Neck normal visual inspection and trachea midline; neck extension not limited Respiratory normal respiratory effort Auscultation: lungs clear to auscultation bilaterally and + diminished lung sounds Cardiovascular Rate/Rhythm: regular rate and regular rhythm Heart Sounds: no murmur Vessels: no carotid bruit Musculoskeletal Spine: normal cervical ROM Extremities: full ROM of extremities Neurologic moves all extremities Motor/Sensory: no sensory deficit Psychiatric Orientation: alert and oriented x 3 Testing Laboratory Results 05/02/20 05:18 05/02/20 05:18 Urine Color Yellow 04/25/20 23:00 Urine Appearance Clear (Clear) 04/25/20 23:00 Urine pH 5.5 (4.5-7.5) 04/25/20 23:00 Ur Specific [place] > 1.045 (1.000-1.030) H 04/25/20 23:00 Urine Protein Trace (Negative) H 04/25/20 23:00 Urine Glucose (UA) Negative (Negative) 04/25/20 23:00 Urine Ketones 2+ (Negative) H 04/25/20 23:00 Urine Nitrite Negative (Negative) 04/25/20 23:00 Ur Leukocyte Esterase Negative (Negative) 04/25/20 23:00 Urine WBC (Auto) 1-5 /hpf (0-5) 04/25/20 23:00 Urine RBC (Auto) 0-4 /hpf (0-4) 04/25/20 23:00 U Hyaline Cast (Auto) 1-5 /lpf (0-5) 04/25/20 23:00 U Epithel Cells (Auto) 10-20 /lpf (0-5) H 04/25/20 23:00 Urine Bacteria (Auto) Negative (Negative) 04/25/20 23:00 Electrocardiogram Date: 02/24/20 Findings: + NSR @ (at 71) Chest X-Ray Date: 04/25/20 Findings: + NAD
--- NOTE | 2020-05-02 13:23 | Hospitalist Progress Note ---
Date of Service May 02, 2020 Assessment & Plan (1) SBO (small bowel obstruction): CT a/p on 04/25 showed small bowel obstruction with the transition point likely located in the deep pelvis. Likely a result of her metastatic ovarian cancer or possibly adhesions from prior surgery. - Presently NPO with NG tube on suction - Surgery following -> Quite likely to need surgery, though attempting to avoid it if possible as she might need a colostomy which she does not want. - Surgery recommending TPN; however, refused on 05/01. Willing to have it today. - Monitor; discussed with surgery today. -> Surgery today. TPN today as well. (2) Disseminated ovarian cancer: Originally diagnosed in 2007 with surgery and adjuvant chemotherapy. No recurrence since then, but patient has had loss of appetite and bloating for several weeks prior to presentation. - Presently undergoing chemothearpy with Dr. Thurman who feels she is responding well if we can overcome side-effects. - Discussed with oncology (Dr. Thurman) on 05/01 - Palliative care consulted (3) DVT prophylaxis: High risk given cancer - Lovenox held today. Admission and Anticipated Discharge Date Admission Date: April 25, 2020 Subjective In better spirits today. No abdominal pain, but no flatus or any BM. Reports no fevers/chills, chest pain, shortness of breath, abdominal pain, nausea, or vomiting. Physical Exam Constitutional: WD/WN, vitals as above Eyes: EOM intact bilaterally; no conjunctival abnormality ENMT: Nose: + foreign body in naris (NG tube) Neck: trachea midline, no thyromegaly normal visual inspection Respiratory: normal respiratory effort, lungs clear to auscultation no res piratory distress Cardiovascular: RRR, no murmur, no edema Gastrointestinal (Abdomen): Inspection/Auscultation: abdomen normal to inspection and + hypoactive bowel sounds; abdomen not distended Percussion/Palpation: abdomen soft; abdomen nontender, no guarding and abdomen not rigid Musculoskeletal: no cyanosis or clubbing, extremities motor strength 5/5 Skin: no rashes, warm and dry Neurologic: moves all extremities and awake Psychiatric: Orientation: alert, oriented to person and cooperative Affect: + tearful affect Results & Data Results & Data ([facility]) Vital Signs (Past 12 Hours) Vital Signs Temp Pulse Resp BP Pulse Ox 05/02/20 12:59 36.9 C 69 16 154/77 H 100 05/02/20 07:05 36.7 C 70 16 115/77 97 PG Care Time/CCT Total # of Minutes Spent Total Time Spent with Patient: Total time spent is greater than 50% in coordination of care (as documented) at patient's floor/unit and/or counseling patient: Coding Level of Care Code 56941 Subseq Hosp Care Lvl 3 Diagnoses SBO (small bowel obstruction) K56.609 Disseminated ovarian cancer C56.9 DVT prophylaxis Z29.9
[2020-05-02] MEDS ORDERED: NEOSTIGMINE METHYLSULFATE 5 MG/5 ML SYR ONE (14:16)
[2020-05-02] MEDS ORDERED: SUCCINYLCHOLINE CHLORIDE 20 MG/ML 10 ML VIAL IV ONE (14:16)
[2020-05-02] MEDS ORDERED: LIDOCAINE HCL 2% 2 ML VIAL/AMP(20MG/ML) INFIL ONE (14:16)
[2020-05-02] MEDS ORDERED: GLYCOPYRROLATE 0.2 MG/ML VIAL ONE (14:16)
[2020-05-02] MEDS ORDERED: ROCURONIUM BROMIDE 10 MG/ML 5 ML VIAL ONE (14:16)
[2020-05-02] MEDS ORDERED: PROPOFOL IV EMULSION 10 MG/ML 20 ML VIAL IV ONE (14:16)
[2020-05-02] MEDS ORDERED: TPN/PPN CONSULT PHARMACY STA (14:54)
[2020-05-02] MEDS ORDERED: HYDROmorphone INJ 2 MG/ML SYR/VIAL ONE (14:57)
--- NOTE | 2020-05-02 15:21 | Post Operative Brief Note ---
PG Immediate Post Op with CF Date of Surgery May 02, 2020 Pre & Post Diagnosis Operation Date: 05/02/20 14:00 Pre-Op Diagnosis: SMALL BOWEL OBSTRUCTION Post-Op Diagnosis: SMALL BOWEL OBSTRUCTION I identified the patient and participated in the time-out.: Yes Procedure Operation Date: 05/02/20 14:00 Actual Procedures p Exploratory Laparotomy,ileo- colic anatomosis (Not Applicable) - Mookie Malone MD Surgeon Mookie Malone MD Job Analysis Manager Amadeo vasquez Estimated Blood Loss 30 Findings Consistent with Post-Op Diagnosis Specimens Specimen Description: #1 Urine Culture - sent to lab Drains [place] Catheter and [place] Drain
--- NOTE | 2020-05-02 15:33 | Operative Report ---
PG Post Operative Report Pre & Post Diagnosis Operation Date: 05/02/20 14:00 Pre-Op Diagnosis: SMALL BOWEL OBSTRUCTION Post-Op Diagnosis: SMALL BOWEL OBSTRUCTION I identified the patient and participated in the time-out.: Yes Procedure Operation Date: 05/02/20 14:00 Actual Procedures p Exploratory Laparotomy,ileo- colic anatomosis (Not Applicable) - Mookie Malone MD The patient was brought into the operating theater general endotracheal anesthesia with the call with protocol we waited 20 minutes and a Fisher catheter was inserted systemic antibiotics given abdomen was prepped Betadine solution properly draped a timeout was had patient was identified made a small incision about 2 inches long in the inferior aspect of the lower midline incision deepened through subcutaneous tissue she had a very thin abdominal wall very scarred down incision and subcutaneous tissue finally entering the abdomen we could see dilated small bowel loops that are viable at this point I insert a finger and I can feel implants on the abdominal wall there was a loop of bowel distally on her opening the incision small bowel adherent to the abdominal wall with a met this point we were able to excise the mat and free up the small bowel so we could have a better look and what the pathology was the patient had the proximal small bowel to the jejunal area distal jejunum that was markedly dilated then distal to that the small bowel was small could not really free it up because it seemed like she had multiple small bowel adhesions to the abdominal wall and tumor encased in tumor I was able then to identify the cecum which came out very easily and it was not distended obviously had a stool I similarly palpated the transverse colon where the patient had a large stool balls but not dilated also identified the distal sigmoid which was fluid-filled but not dilated down the pelvis I can feel some implants and small bowel stuck in that area at this point I felt that the bypass her would be the only solution to try to lyse all these adhesions and tumor implants on the bowel for I elected to do a [id number]-bcbi anastomosis of the distal jejunum to the cecum we draped out the operative field towels and intestinal clamp was placed on the cecum and similarly on the small bowel we did a handsewn anastomosis 3-0 silk our layer 3- 0 chromic interlayer the anastomosis felt patent when we were done of note when we opened the cecum there was a very soft stool present. We then returned the bowel into the abdomen suctioned out some more ascitic fluid which in the past that been tested with showed adenocarcinoma I did not send any sample in the abdomen I closed with interrupted #1 PDS [id number] quarter inch Stas for the subcu mary for skin edges dressing was applied procedure was tolerated well by the patient estimated blood loss 30 cc addendumAmadeo PATTON was present throughout the procedure and help with exposure retraction and anastom otic closure and abdominal closure Surgeon Mookie Malone MD Administrative Support Assistant Amadeo patton Estimated Blood Loss 30 Findings Consistent with Post-Op Diagnosis Specimens none Description of Procedure merda I attest to the content of the Intraoperative Record and any orders documented therein. Any exceptions are noted below.
[2020-05-02] MEDS ORDERED: ONDANSETRON INJ 2 MG/ML 2 ML VIAL IV PRN (16:23)
[2020-05-02] MEDS ORDERED: PROMETHAZINE HCL 12.5 MG in SODIUM CHLORIDE 0.9% 50 ML IV PRN (16:23)
[2020-05-02] MEDS ORDERED: HYDROmorphone INJ 1 MG/ML SYRINGE IV PRN (16:23)
[2020-05-02] MEDS ORDERED: LABETALOL HCL IV 5 MG/ML 20ML IV PRN (16:23)
[2020-05-02] MEDS ORDERED: ATROPINE SULFATE 0.1 MG/ML 10ML SYR IV PRN (16:23)
[2020-05-02] MEDS ORDERED: NALOXONE HCL 0.4 MG/1 ML VIAL/CARP IV PRN (16:23)
[2020-05-02] MEDS ORDERED: fentaNYL citrate 100 MCG/2 ML VIAL IV PRN (16:23)
[2020-05-02] MEDS ORDERED: ePHEDrine sulfate 50 MG/ML AMP IV PRN (16:23)
[2020-05-02] MEDS ORDERED: FLUMAZENIL 0.1 MG/1 ML 10 ML VIAL IV PRN (16:23)
--- NOTE | 2020-05-02 16:24 | Anesthesiology Progress Note ---
Date of Service May 02, 2020 Anesthesia Post Procedure Vital Signs Vital Signs: Temp Pulse Pulse Resp BP Pulse Ox 05/02/20 16:17 69 14 136/67 99 05/02/20 16:10 68 14 146/73 H 100 05/02/20 16:00 71 14 152/77 H 100 05/02/20 15:54 36.6 C 79 14 156/77 H 100 05/02/20 12:59 36.9 C 69 16 154/77 H 100 05/02/20 07:05 36.7 C 70 16 115/77 97 05/01/20 23:15 36.6 C 66 18 120/69 98 Pain Intensity Abdomen: Pain Intensity: 6 Transfer of Care Handoff Completed per policy Notes Mental Status: alert / awake / arousable Patient Amnestic to Procedure: Yes Nausea / Vomiting: adequately controlled Pain: adequately controlled Airway Patency, RR, SpO2: stable & adequate BP & HR: stable & adequate Hydration State: stable & adequate Anesthetic Complications: no major complications apparent
[2020-05-02] MEDS: LACTATED RINGER'S 1,000 ML IV SCH ×2 (16:50→23:36)
[2020-05-02] MEDS ORDERED: ACETAMINOPHEN 1000 MG/100 ML IV IV PRN (16:54)
[2020-05-02] MEDS ORDERED: DEXTROSE 10% 1,000 ML IV SCH (17:00)
[2020-05-02] MEDS ORDERED: ACETAMINOPHEN 65 ML IV PRN (17:15)
[2020-05-02] MEDS: MoRPHine SULFATE 4 MG/ML 1 ML CARP\\VIAL IV PRN ×2 (20:10→23:37)
[2020-05-02] MEDS: LATANOPROST 0.005% OP SOLN 2.5 ML BTL OP SCH (20:13)
[2020-05-02] MEDS ORDERED: LORazepam 0.5 MG/1 ML VIAL IV STA (23:07)
[2020-05-03] MEDS: MoRPHine SULFATE 2 MG/ML CARP IV PRN ×3 (04:05→21:38)
[2020-05-03 06:14] LABS: Hematocrit (blood only) 34.2 % (37-47); Mean Corpuscular Hemoglobin 30.8 pg (25-34); Mean Corpuscular Hgb Conc 32.2 g/dL (32-36); Mean Corpuscular Volume 95.8 fL (80-100); Mean Platelet Volume 8.4 fL (7.4-10.4); Platelet Count 263 K/uL (130-400); RDW Standard Deviation 68.4 fL (36.4-46.3); Red Blood Count 3.57 M/uL (4.2-5.4); White Blood Count 2.57 K/uL (4.8-10.8)
[2020-05-03 06:54] LABS: Albumin Globulin Ratio 0.7 (0.9-2); Albumin Level 2.1 gm/dl (3.4-5.0); Bilirubin,Total 0.5 mg/dl (0.2-1); Calcium 7.9 mg/dl (8.5-10.1); Creatinine Clr Calc Pharmacy 50.8 ml/min; Est GFR (African American) 86.4; Est GFR (Non-African American) 74.5; Globulin 3.2 gm/dl (2.5-4.0); Magnesium 1.7 mg/dl (1.8-2.4); Phosphorus 4.3 mg/dl (2.5-4.9); Potassium 4.1 mmol/L (3.5-5.1); Total Protein 5.3 gm/dl (6.4-8.2)
--- NOTE | 2020-05-03 07:54 | Surgery Progress Note ---
Date of Service May 03, 2020 Assessment & Plan (1) Disseminated ovarian cancer: Patient is post day 1 exploratory lap ileal colonic anastomosis At the time of the surgery the patient has significant stool load but no obstruction of the colon I discussed with the patient intraoperative findings and what we had done At this time we will continue peripheral alimentation I suspect you will take 1 or 2 more days to open up and until so I would keep her on hyper L We will increase her IV fluids clinically and chemically she is a bit dry Present on Admission?: Yes Subjective Patient is resting comfortably had a fairly good night she is alert coherent Physical Exam Physical Exam: The NG tube in place drainage is subsided from preop the abdomen and with the distended with the expected postoperative discomfort the dressing is a still on got a patch of blood distally the patient has a subcutaneous drain Results & Data Vital Signs (Past 12 Hours) Vital Signs Temp Pulse Resp BP BP Pulse Ox 05/03/20 04:02 36.7 C 88 16 126/73 97 05/02/20 23:30 37.3 C 74 20 105/74 95 05/02/20 19:52 36.3 C L 94 H 18 113/71 98 PG Care Time/CCT Total # of Minutes Spent Total Time Spent with Patient: Total time spent is greater than 50% in coordination of care (as documented) at patient's floor/unit and/or counseling patient: Coding Level of Care Code None Diagnoses Disseminated ovarian cancer C56.9
[2020-05-03] MEDS ORDERED: SOD PHOSPHATE/SOD BIPHOSPHATE ENEMA 132 ML BTL PR STA (07:57)
[2020-05-03] MEDS ORDERED: TPN/PPN CONSULT PHARMACY PRN (08:00)
[2020-05-03] MEDS ORDERED: DEXTROSE 10% 1,000 ML IV PRN ×2 (08:00→16:00)
[2020-05-03] MEDS: MAGNESIUM SULFATE / D5W 1 GM/100 ML BAG IV SCH ×2 (08:53→11:03)
[2020-05-03] MEDS: LACTATED RINGER'S 1,000 ML IV SCH ×2 (08:53→16:12)
[2020-05-03] MEDS: HEPARIN SOD 5,000 UNIT/0.5 ML VIAL SQ SCH ×2 (08:54→21:29)
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
[2020-05-03 11:37] LABS: Bilirubin,Total 0.4 mg/dl (0.2-1)
--- NOTE | 2020-05-03 13:48 | Hospitalist Progress Note ---
Date of Service May 03, 2020 Assessment & Plan (1) SBO (small bowel obstruction): CT a/p on 04/25 showed small bowel obstruction with the transition point likely located in the deep pelvis. Likely a result of her metastatic ovarian cancer or possibly adhesions from prior surgery. - Re-anastomosis with Dr. Malone on 05/02 - Surgery went well. No need for resection or ostomy. Was able to re-anastomose at prior site. - Will need some time to recover bowel function. Pain control per surgery orders. (2) Disseminated ovarian cancer: Originally diagnosed in 2007 with surgery and adjuvant chemotherapy. No recurrence since then, but patient has had loss of appetite and bloating for several weeks prior to presentation. - Presently undergoing chemothearpy with Dr. Thurman who feels she is responding well if we can overcome side-effects. - Discussed with oncology (Dr. Thurman) on 05/03 - Palliative care consulted (3) DVT prophylaxis: Heparin 5000 units SQ Q12h Admission and Anticipated Discharge Date Admission Date: April 25, 2020 Subjective Quite upset today that she has not seen return of her bowel function yet. Some pain in the abdomen. Reports no fevers/chills, chest pain, shortness of breath, nausea, or vomiting. Physical Exam Constitutional: WD/WN, vitals as above Eyes: EOM intact bilaterally; no conjunctival abnormality ENMT: Nose: + foreign body in naris (NG tube) Neck: trachea midline, no thyromegaly normal visual inspection Respiratory: normal respiratory effort, lungs clear to auscultation no respiratory distress Cardiovascular: RRR, no murmur, no edema Gastrointestinal (Abdomen): Inspection/Auscultation: + abdominal surgical incision and + hypoactive bowel sounds; + abdomen abnormal to inspection and abdomen not distended Percussion/Palpation: abdomen soft; abdomen nontender, no guarding and abdomen not rigid Musculoskeletal: no cyanosis or clubbing, extremities motor strength 5/5 Skin: no rashes, warm and dry Neurologic: moves all extremities and awake Psychiatric: Orientation: alert, oriented to person and cooperative Affect: + irritable affect Results & Data Results & Data ([facility]) Vital Signs (Past 12 Hours) Vital Signs Temp Pulse Resp BP BP Pulse Ox 05/03/20 11:46 36.9 C 83 18 102/67 98 05/03/20 07:35 36.9 C 83 16 125/73 16 L 05/03/20 04:02 36.7 C 88 16 126/73 97 PG Care Time/CCT Total # of Minutes Spent Total Time Spent with Patient: Total time spent is greater than 50% in coordination of care (as documented) at patient's floor/unit and/or counseling patient: Coding Level of Care Code 26941 Subseq Hosp Care Lvl 2 Diagnoses SBO (small bowel obstruction) K56.609 Disseminated ovarian cancer C56.9 DVT prophylaxis Z29.9
[2020-05-03] MEDS ORDERED: PERIPHERAL PN IV SCH (16:00)
[2020-05-03] MEDS ORDERED: TPN IV SCH (16:00)
[2020-05-03] MEDS: LATANOPROST 0.005% OP SOLN 2.5 ML BTL OP SCH (21:29)
[2020-05-04] MEDS: MoRPHine SULFATE 4 MG/ML 1 ML CARP\\VIAL IV PRN (05:40)
[2020-05-04] MEDS ORDERED: SOD PHOSPHATE/SOD BIPHOSPHATE ENEMA 132 ML BTL PR PRN (06:03)
[2020-05-04 06:09] LABS: Basophils # (auto) 0.01 K/uL (0-0.2); Basophils % (auto) 0.3 %; Eosinophils # (auto) 0.05 K/uL (0-0.5); Eosinophils % (auto) 1.5 %; Hematocrit (blood only) 29.4 % (37-47); Hemoglobin 9.5 g/dL (12.0-16.0); Immature Granulocytes # (auto) 0.01 K/uL (0.00-0.02); Immature Granulocytes % (auto) 0.3 %; Lymphocytes # (auto) 0.41 K/uL (1.2-3.4); Lymphocytes % (auto) 11.9 %; Mean Corpuscular Hemoglobin 30.9 pg (25-34); Mean Corpuscular Hgb Conc 32.3 g/dL (32-36); Mean Corpuscular Volume 95.8 fL (80-100); Mean Platelet Volume 8.3 fL (7.4-10.4); Monocytes # (auto) 0.76 K/uL (0.11-0.59); Monocytes % (auto) 22.1 %; Neutrophils % (auto) 63.9 %; Platelet Count 232 K/uL (130-400); RDW Coefficient of Variation 20.1 % (11.5-14.5); RDW Standard Deviation 68.4 fL (36.4-46.3); Red Blood Count 3.07 M/uL (4.2-5.4); White Blood Count 3.44 K/uL (4.8-10.8)
--- NOTE | 2020-05-04 06:14 | Surgery Progress Note ---
Date of Service May 04, 2020 Assessment & Plan (1) SBO (small bowel obstruction): 05/04/20 pod 2 Overall she is doing well as expected the NG drainage is decreased in the last 5 hours and is compared to yesterday overall is going in the right direction the drainage that she had in the tube this morning his more bilious in nature At this point we will continue with hyperalimentation leave the NG tube then administer another fleets enema Her urine output this 175 for 8 hours her total IV fluids approximately 3 L a day We will DC the Fisher catheter give another fleets enema check her later today if her urine output is still low he may need some increase in fluids but I would go very slow with given fluids at this time not to overload her Third postoperative day will most likely mobilize fluids on her own Present on Admission?: Yes Subjective Multiple complaints were voiced she states that having gotten out of bed having walker Really not complaining much abdominal pain she is comfortable with the analgesics She received a fleets enema yesterday but the patient has not passed any flatus or bowel movement Physical Exam Physical Exam: Clinically she is a bit dry oral mucosa scaling The abdomen is softer than yesterday no tenderness just postoperative pain minimal guarding Results & Data Vital Signs (Past 12 Hours) Vital Signs Temp Pulse Resp BP Pulse Ox 05/03/20 23:45 37.1 C 82 18 117/72 94 PG Care Time/CCT Total # of Minutes Spent Total Time Spent with Patient: Total time spent is greater than 50% in coordination of care (as documented) at patient's floor/unit and/or counseling patient: Coding Level of Care Code None Diagnoses SBO (small bowel obstruction) K56.609 Comment post op visit
[2020-05-04] MEDS ORDERED: SOD PHOSPHATE/SOD BIPHOSPHATE ENEMA 132 ML BTL PR SCH (06:30)
[2020-05-04 06:48] LABS: Albumin Level 1.9 gm/dl (3.4-5.0); BUN Creatinine Ratio 18.9 (10-20); Calcium 7.5 mg/dl (8.5-10.1); Creatinine Clr Calc Pharmacy 65.7 ml/min; Est GFR (African American) 106.6; Magnesium 2.1 mg/dl (1.8-2.4); Potassium 3.6 mmol/L (3.5-5.1)
[2020-05-04 06:58] LABS: Albumin Globulin Ratio 0.6 (0.9-2); Bilirubin,Total 0.2 mg/dl (0.2-1); Total Protein 4.9 gm/dl (6.4-8.2)
[2020-05-04 07:04] LABS: Anisocytosis Present
[2020-05-04] MEDS: HEPARIN SOD 5,000 UNIT/0.5 ML VIAL SQ SCH ×2 (09:39→20:21)
[2020-05-04] MEDS ORDERED: POTASSIUM PHOSPHATE 15 MMOL in SODIUM CHLORIDE 0.9% 250 ML IV ONE (10:45)
--- NOTE | 2020-05-04 11:30 | Hospitalist Progress Note ---
Date of Service May 04, 2020 Assessment & Plan (1) SBO (small bowel obstruction): CT a/p on 04/25 showed small bowel obstruction with the transition point likely located in the deep pelvis. Likely a result of her metastatic ovarian cancer or possibly adhesions from prior surgery. - Re-anastomosis with Dr. Malone on 05/02 - Surgery went well. No need for resection or ostomy. Was able to re-anastomose at prior site. - Will need some time to recover bowel function. Pain control per surgery orders. - No flatus or BM yet. NGT clamped. Walking to try to improve bowel function. Last TPN day as weight is up today. No signs/symptoms of volume overload though. (2) Disseminated ovarian cancer: Originally diagnosed in 2007 with surgery and adjuvant chemotherapy. No recurrence since then, but patient has had loss of appetite and bloating for several weeks prior to presentation. - Presently undergoing chemothearpy with Dr. Thurman who feels she is responding well if we can overcome side-effects. - Discussed with oncology (Dr. Thurman) on 05/04 -> Plan to restart chemo as soon as able. - Palliative care consulted (3) DVT prophylaxis: Heparin 5000 units SQ Q12h Admission and Anticipated Discharge Date Admission Date: April 25, 2020 Subjective No passing flatus or BM. Some abdominal pain. Reports no fevers/chills, chest pain, shortness of breath, abdominal pain, nausea, or vomiting. Physical Exam Constitutional: WD/WN, vitals as above Eyes: EOM intact bilaterally; no conjunctival abnormality ENMT: Nose: + foreign body in naris (NG tube) Neck: trachea midline, no thyromegaly normal visual inspection Respiratory: normal respiratory effort, lungs clear to auscultation no respiratory distress Cardiovascular: RRR, no murmur, no edema Gastrointestinal (Abdomen): Inspection/Auscultation: + abdominal surgical incision and + hypoactive bowel sounds; + abdomen abnormal to inspection and abdomen not distended Percussion/Palpation: abdomen soft; abdomen nontender, no guarding and abdomen not rigid Musculoskeletal: no cyanosis or clubbing, extremities motor strength 5/5 Skin: no rashes, warm and dry Neurologic: moves all extremities and awake Psychiatric: Orientation: alert, oriented to person and cooperative Affect: + irritable affect Results & Data Results & Data ([facility]) Vital Signs (Past 12 Hours) Vital Signs Temp Pulse Resp BP Pulse Ox 05/04/20 07:18 36.7 C 97 H 18 117/75 96 05/03/20 23:45 37.1 C 82 18 117/72 94 PG Care Time/CCT Total # of Minutes Spent Total Time Spent with Patient: Total time spent is greater than 50% in coordination of care (as documented) at patient's floor/unit and/or counseling patient: Coding Level of Care Code 37966 Subseq Hosp Care Lvl 2 Diagnoses SBO (small bowel obstruction) K56.609 Disseminated ovarian cancer C56.9 DVT prophylaxis Z29.9
[2020-05-04] MEDS: MoRPHine SULFATE 2 MG/ML CARP IV PRN ×2 (11:32→20:45)
--- NOTE | 2020-05-04 13:45 | Palliative Care Progress Note ---
Date of Service May 04, 2020 Assessment & Plan (1) Goals of care, counseling/discussion: - patient is a 64 year old female patient with PMH breast cancer status post mastectomy, ovarian cancer first dx 2007, status post hysterectomy, recurrence of ovarian cancer currently undergoing treatment, carcinomatosis, who presented to the ED on 04/25 with bilateral lower abdominal pain. Imaging revealed SBO. Patient was treated conservatively for a week with NG tube, IVF and bowel rest. Patient's metastatic disease is responding to current chemo treatment-- oncologist believes omental nodes appear smaller already. CA 125 was 1474 at time of diagnosis, and a repeat level on 04/30 was 325. After discussion with surgery as well as [id number] underwent surgery to correct area of stenosis-did not require colostomy. -Patient seen and examined this afternoon. -Case management and nursing notes reviewed. Patient plans to go home upon discharge where she lives alone independently. Her POA is Rain Eason, her [id number]. -Patient's goal is to recover from surgery, return home and continue with her cancer treatment. -Further discussion and recommendations to follow after palliative MD speaks with patient. (2) SBO (small bowel obstruction): (3) Ovarian cancer: Subjective Patient awake and alert, no acute distress. Patient walking vigorously in the hallway in order to stimulate bowels. Patient has not yet passed any gas or had a bowel movement. Patient is tolerating NG tube clamped-no nausea or vomiting. Patient's pain well controlled with IV morphine-she required 8 mg in the past 24 hours. Review of Systems Review of Systems: Denies fever or chills, no flatus or bowel movement Results & Data Vital Signs (Past 12 Hours) Vital Signs Temp Pulse Resp BP Pulse Ox 05/04/20 07:18 98.1 F 97 H 18 117/75 96 PG Care Time/CCT Total # of Minutes Spent Total Time Spent with Patient: Total time spent 25 minutes with greater than 50% of the time spent at bedside assessing patient's current level of comfort as well as goals of care Coding Level of Care Code 52044 Subseq Hosp Care Lvl 2 Diagnoses Goals of care, counseling/discussion Z71.89 SBO (small bowel obstruction) K56.609 Ovarian cancer C56.9 Time Spent (min) 25
[2020-05-04] MEDS: LACTATED RINGER'S 1,000 ML IV SCH (15:52)
[2020-05-04] MEDS ORDERED: PERIPHERAL PN IV SCH (16:00)
[2020-05-04] MEDS ORDERED: TPN IV SCH (16:00)
[2020-05-04] MEDS: LATANOPROST 0.005% OP SOLN 2.5 ML BTL OP SCH (20:18)
[2020-05-05] MEDS: MoRPHine SULFATE 4 MG/ML 1 ML CARP\\VIAL IV PRN ×2 (06:15→20:29)
[2020-05-05 06:21] LABS: Hematocrit (blood only) 27.9 % (37-47); Hemoglobin 9.2 g/dL (12.0-16.0); Mean Corpuscular Volume 93.9 fL (80-100); Mean Platelet Volume 8.6 fL (7.4-10.4); Platelet Count 228 K/uL (130-400); RDW Coefficient of Variation 19.8 % (11.5-14.5); RDW Standard Deviation 66.3 fL (36.4-46.3); Red Blood Count 2.97 M/uL (4.2-5.4); White Blood Count 2.82 K/uL (4.8-10.8)
[2020-05-05 06:56] LABS: BUN Creatinine Ratio 23.5 (10-20); Calcium 7.6 mg/dl (8.5-10.1); Creatinine Clr Calc Pharmacy 82.4 ml/min; Est GFR (African American) 114.2; Est GFR (Non-African American) 98.5; Magnesium 1.8 mg/dl (1.8-2.4); Potassium 3.6 mmol/L (3.5-5.1)
[2020-05-05 07:06] LABS: Phosphorus 2.8 mg/dl (2.5-4.9)
[2020-05-05] MEDS ORDERED: SOD PHOSPHATE/SOD BIPHOSPHATE ENEMA 132 ML BTL PR STA (07:30)
--- NOTE | 2020-05-05 07:42 | Surgery Progress Note ---
Date of Service May 05, 2020 Assessment & Plan (1) SBO (small bowel obstruction): POD#3 ex-lap with re-anastomosis NGT output decreasing; 345cc documented will d/c IVF today, she is starting to mobilize fluid continue ppn for now will d/c basilio drain today order a fleets enema, if patient has a BM today we will d/c NGT continue ambulation as tolerates pt seen and examined with Dr. Malone Subjective Patient is doing okay. No flatus or BM yet, but she says she feels "rumblings". Has been ambulating frequently. Feels a little more bloated today and has some right arm edema. Physical Exam Physical Exam: awake/alert Gastrointestinal (Abdomen): Inspection/Auscultation: + abdomen distended and + abdominal surgical incision (c/d/i with mary midline & basilio in place, some shadowing on dressing) Percussion/Palpation: abdomen soft Results & Data Vital Signs (Past 12 Hours) Vital Signs Temp Pulse Resp BP Pulse Ox 05/05/20 07:17 36.8 C 71 17 112/69 97 05/04/20 23:55 36.6 C 67 20 121/72 96 05/04/20 21:36 114/68 PG Care Time/CCT Total # of Minutes Spent Total Time Spent with Patient: Total time spent is greater than 50% in coordination of care (as documented) at patient's floor/unit and/or counseling patient: Coding Level of Care Code None Diagnoses SBO (small bowel obstruction) K56.609
[2020-05-05] MEDS: HEPARIN SOD 5,000 UNIT/0.5 ML VIAL SQ SCH ×2 (09:12→20:01)
--- NOTE | 2020-05-05 14:22 | Hospitalist Progress Note ---
Date of Service May 05, 2020 Assessment & Plan (1) SBO (small bowel obstruction): CT a/p on 04/25 showed small bowel obstruction with the transition point likely located in the deep pelvis. Likely a result of her metastatic ovarian cancer or possibly adhesions from prior surgery. - Re-anastomosis with Dr. Malone on 05/02 - Surgery went well. No need for resection or ostomy. Was able to re-anastomose at prior site. - Will need some time to recover bowel function. Pain control per surgery orders. - No flatus or BM yet. NGT clamped. Walking to try to improve bowel function. No signs/symptoms of volume overload though. Surgery is trying enemas to see if this can kick-start it. (2) Disseminated ovarian cancer: Originally diagnosed in 2007 with surgery and adjuvant chemotherapy. No recurrence since then, but patient has had loss of appetite and bloating for several weeks prior to presentation. - Presently undergoing chemothearpy with Dr. Thurman who feels she is responding well if we can overcome side-effects. - Discussed with oncology (Dr. Thurman) on 05/04 -> Plan to restart chemo as soon as able. - Palliative care consulted (3) DVT prophylaxis: Heparin 5000 units SQ Q12h Admission and Anticipated Discharge Date Admission Date: April 25, 2020 Subjective Less abdominal pain; however, not passing gas. No BM. Reports no fevers/chills, chest pain, shortness of breath, nausea, or vomiting. Physical Exam Constitutional: WD/WN, vitals as above Eyes: EOM intact bilaterally; no conjunctival abnormality ENMT: Nose: + foreign body in naris (NG tube) Neck: trachea midline, no thyromegaly normal visual inspection Respiratory: normal respiratory effort, lungs clear to auscultation no respiratory distress Cardiovascular: RRR, no murmur, no edema Gastrointestinal (Abdomen): Inspection/Auscultation: + abdominal surgical incision and + hypoactive bowel sounds; + abdomen abnormal to inspection and abdomen not distended Percussion/Palpation: abdomen soft; abdomen nontender, no guarding and abdomen not rigid Musculoskeletal: no cyanosis or clubbing, extremities motor strength 5/5 Skin: no rashes, warm and dry Neurologic: moves all extremities and awake Psychiatric: Orientation: alert, oriented to person and cooperative Results & Data Results & Data ([facility]) Vital Signs (Past 12 Hours) Vital Signs Temp Pulse Resp BP Pulse Ox 05/05/20 07:17 36.8 C 71 17 112/69 97 PG Care Time/CCT Total # of Minutes Spent Total Time Spent with Patient: Total time spent is greater than 50% in coordination of care (as documented) at patient's floor/unit and/or counseling patient: Coding Level of Care Code 70844 Subseq Hosp Care Lvl 2 Diagnoses SBO (small bowel obstruction) K56.609 Disseminated ovarian cancer C56.9 DVT prophylaxis Z29.9
[2020-05-05] MEDS: LATANOPROST 0.005% OP SOLN 2.5 ML BTL OP SCH (20:03)
[2020-05-05] MEDS: HEPARIN 100 UNIT/ML 5ML FLUSH FLUSH PRN (20:08)
[2020-05-06] MEDS: HEPARIN 100 UNIT/ML 5ML FLUSH FLUSH PRN (05:43)
[2020-05-06] MEDS: MoRPHine SULFATE 4 MG/ML 1 ML CARP\\VIAL IV PRN (05:53)
[2020-05-06 06:28] LABS: Hematocrit (blood only) 28.2 % (37-47); Hemoglobin 9.3 g/dL (12.0-16.0); Mean Platelet Volume 8.6 fL (7.4-10.4); Platelet Count 252 K/uL (130-400); RDW Coefficient of Variation 19.8 % (11.5-14.5); RDW Standard Deviation 65.9 fL (36.4-46.3); White Blood Count 2.77 K/uL (4.8-10.8)
--- NOTE | 2020-05-06 06:35 | Surgery Progress Note ---
Date of Service May 06, 2020 Assessment & Plan (1) SBO (small bowel obstruction): Patient with some bilious NG output No bowel movement or flatus Abdomen mildly Distended Patient is walking Could try clamping her NG tube prior to removing it Appears PPN has been stopped and will check on this later this morning Results & Data Vital Signs (Past 12 Hours) Vital Signs Temp Pulse Resp BP Pulse Ox 05/05/20 23:15 36.7 C 71 16 116/70 95 PG Care Time/CCT Total # of Minutes Spent Total Time Spent with Patient: Total time spent is greater than 50% in coordination of care (as documented) at patient's floor/unit and/or counseling patient: Coding Level of Care Code None Diagnoses SBO (small bowel obstruction) K56.609
[2020-05-06 06:56] LABS: BUN Creatinine Ratio 25.5 (10-20); Creatinine Clr Calc Pharmacy 76.9 ml/min; Est GFR (African American) 112.9; Est GFR (Non-African American) 97.4; Magnesium 1.9 mg/dl (1.8-2.4); Potassium 3.7 mmol/L (3.5-5.1)
[2020-05-06 07:01] LABS: Phosphorus 3.4 mg/dl (2.5-4.9)
[2020-05-06] MEDS: HEPARIN SOD 5,000 UNIT/0.5 ML VIAL SQ SCH ×2 (09:20→20:22)
--- NOTE | 2020-05-06 09:43 | XRay Report ---
KUB CLINICAL HISTORY: follow up bowel obstruction COMPARISON STUDY: CT of the abdomen and pelvis April 25, 2020. KUB May 01, 2020. FINDINGS: Right hip arthroplasty is incidentally noted as well as skin mary from laparotomy. Tip o f nasogastric tube is within the body of the stomach. Oral contrast from prior small bowel follow-thr ough is within the colon. There are multiple loops of mildly dilated small bowel. Small bowel dilatat ion has improved since exam of May 01, 2020. IMPRESSION: 1. Mild small bowel dilatation, improved since prior exam. The findings may reflect a postoperative i leus or partial small bowel obstruction. 2. Oral contrast from prior small bowel follow-through now within the colon. Therefore, no complete s mall bowel obstruction. ACT 112: Negative or not required by law. Electronically signed by: Cain Rush M.D. 05/06/2020 9:42 AM
[2020-05-06] MEDS: MoRPHine SULFATE 2 MG/ML CARP IV PRN ×2 (12:11→20:17)
[2020-05-06] MEDS ORDERED: TPN IV SCH (16:00)
[2020-05-06] MEDS ORDERED: TPN/PPN CONSULT PHARMACY PRN (16:00)
[2020-05-06] MEDS ORDERED: PERIPHERAL PN IV SCH (16:00)
--- NOTE | 2020-05-06 16:23 | Hospitalist Progress Note ---
Date of Service May 06, 2020 Assessment & Plan (1) SBO (small bowel obstruction): CT a/p on 04/25 showed small bowel obstruction with the transition point likely located in the deep pelvis. Likely a result of her metastatic ovarian cancer or possibly adhesions from prior surgery. - Re-anastomosis with Dr. Malone on 05/02 - Surgery went well. No need for resection or ostomy. Was able to re-anastomose at prior site. - Will need some time to recover bowel function. Pain control per surgery orders. - Passed a liquid BM today, but may have just been her enema. KUB shows contrast has gotten through. Will start senna tomorrow per surgery. (2) Disseminated ovarian cancer: Originally diagnosed in 2007 with surgery and adjuvant chemotherapy. No recurrence since then, but patient has had loss of appetite and bloating for several weeks prior to presentation. - Presently undergoing chemothearpy with Dr. Thurman who feels she is responding well if we can overcome side-effects. - Discussed with oncology (Dr. Thurman) on 05/04 -> Plan to restart chemo as soon as able. - Palliative care consulted (3) DVT prophylaxis: Heparin 5000 units SQ Q12h Admission and Anticipated Discharge Date Admission Date: April 25, 2020 Subjective Very upset today. She is upset about possibly needing TPN again (which I think she is refusing). She also feels she is not getting any better. Reports no fevers/chills, chest pain, shortness of breath, abdominal pain, nausea, or vomiting. Physical Exam Constitutional: WD/WN, vitals as above Eyes: EOM intact bilaterally; no conjunctival abnormality ENMT: Nose: + foreign body in naris (NG tube) Neck: trachea midline, no thyromegaly normal visual inspection Respiratory: normal respiratory effort, lungs clear to auscultation no respiratory distress Cardiovascular: RRR, no murmur, no edema Gastrointestinal (Abdomen): Inspection/Auscultation: + abdominal surgical incision and + hypoactive bowel sounds; + abdomen abnormal to inspection and abdomen not distended Percussion/Palpation: abdomen soft; abdomen nontender, no guarding and abdomen not rigid Musculoskeletal: no cyanosis or clubbing, extremities motor strength 5/5 Skin: no rashes, warm and dry Neurologic: moves all extremities and awake Psychiatric: Orientation: alert, oriented to person and cooperative Affect: + irritable affect Results & Data Results & Data ([facility]) Vital Signs (Past 12 Hours) Vital Signs Temp Pulse Resp BP Pulse Ox 05/06/20 15:18 36.3 C L 80 16 96/66 L 97 05/06/20 07:48 36.6 C 86 18 103/70 97 PG Care Time/CCT Total # of Minutes Spent Total Time Spent with Patient: Total time spent is greater than 50% in coordination of care (as documented) at patient's floor/unit and/or counseling patient: Coding Level of Care Code 46373 Subseq Hosp Care Lvl 2 Diagnoses SBO (small bowel obstruction) K56.609 Disseminated ovarian cancer C56.9 DVT prophylaxis Z29.9
[2020-05-06] MEDS: LATANOPROST 0.005% OP SOLN 2.5 ML BTL OP SCH (20:18)
[2020-05-07] MEDS: HEPARIN 100 UNIT/ML 5ML FLUSH FLUSH PRN (05:17)
--- NOTE | 2020-05-07 06:20 | Surgery Progress Note ---
Date of Service May 07, 2020 Assessment & Plan (1) SBO (small bowel obstruction): feeling better ++ BM min NG output d/c NG PPN one more day- for proteins clear liquids Results & Data Vital Signs (Past 12 Hours) Vital Signs Temp Pulse Resp BP Pulse Ox 05/06/20 23:53 36.8 C 72 16 127/78 98 PG Care Time/CCT Total # of Minutes Spent Total Time Spent with Patient: Total time spent is greater than 50% in coordination of care (as documented) at patient's floor/unit and/or counseling patient: Coding Level of Care Code None Diagnoses SBO (small bowel obstruction) K56.609
[2020-05-07 06:40] LABS: Calcium 7.9 mg/dl (8.5-10.1); Creatinine Clr Calc Pharmacy 71.2 ml/min; Est GFR (African American) 110.4; Est GFR (Non-African American) 95.3; Magnesium 1.9 mg/dl (1.8-2.4); Phosphorus 3.8 mg/dl (2.5-4.9); Potassium 3.4 mmol/L (3.5-5.1)
[2020-05-07] MEDS: HEPARIN SOD 5,000 UNIT/0.5 ML VIAL SQ SCH ×2 (09:02→20:56)
[2020-05-07] MEDS: SENNOSIDES 8.8 MG/5 ML UDC PO SCH ×2 (09:02→20:52)
--- NOTE | 2020-05-07 14:44 | Hospitalist Progress Note ---
Date of Service May 07, 2020 Assessment & Plan (1) SBO (small bowel obstruction): CT a/p on 04/25 showed small bowel obstruction with the transition point likely located in the deep pelvis. Likely a result of her metastatic ovarian cancer or possibly adhesions from prior surgery. - Re-anastomosis with Dr. Malone on 05/02 - Surgery went well. No need for resection or ostomy. Was able to re-anastomose at prior site. - Passed a liquid BM today. NG tube pulled. Clear diet per surgery. (2) Disseminated ovarian cancer: Originally diagnosed in 2007 with surgery and adjuvant chemotherapy. No recurrence since then, but patient has had loss of appetite and bloating for several weeks prior to presentation. - Presently undergoing chemothearpy with Dr. Thurman who feels she is responding well if we can overcome side-effects. - Discussed with oncology (Dr. Thurman) on 05/04 -> Plan to restart chemo as soon as able. - Palliative care consulted (3) DVT prophylaxis: Heparin 5000 units SQ Q12h Admission and Anticipated Discharge Date Admission Date: April 25, 2020 Subjective Feeling better today. Getting to eat some clear liquids. Overall, in better spirits. Reports no fevers/chills, chest pain, shortness of breath, abdominal pain, nausea, or vomiting. Physical Exam Constitutional: WD/WN, vitals as above Eyes: EOM intact bilaterally; no conjunctival abnormality ENMT: Nose: + foreign body in naris (NG tube) Neck: trachea midline, no thyromegaly normal visual inspection Respiratory: normal respiratory effort, lungs clear to auscultation no respiratory distress Cardiovascular: RRR, no murmur, no edema Gastrointestinal (Abdomen): Inspection/Auscultation: + abdominal surgical incision and + hypoactive bowel sounds; + abdomen abnormal to inspection and abdomen not distended Percussion/Palpation: abdomen soft; abdomen nontender, no guarding and abdomen not rigid Musculoskeletal: no cyanosis or clubbing, extremities motor strength 5/5 Skin: no rashes, warm and dry Neurologic: moves all extremities and awake Psychiatric: Orientation: alert, oriented to person and cooperative Affect: + irritable affect Results & Data Results & Data ([facility]) Vital Signs (Past 12 Hours) Vital Signs Temp Pulse Resp BP Pulse Ox 05/07/20 07:19 36.4 C L 81 18 125/70 98 PG Care Time/CCT Total # of Minutes Spent Total Time Spent with Patient: Total time spent is greater than 50% in coordination of care (as documented) at patient's floor/unit and/or counseling patient: Coding Level of Care Code 93318 Subseq Hosp Care Lvl 2 Diagnoses SBO (small bowel obstruction) K56.609 Disseminated ovarian cancer C56.9 DVT prophylaxis Z29.9
[2020-05-07] MEDS ORDERED: PERIPHERAL PN IV SCH (16:00)
[2020-05-07] MEDS ORDERED: TPN IV SCH (16:00)
[2020-05-07] MEDS: MoRPHine SULFATE 2 MG/ML CARP IV PRN (16:54)
--- NOTE | 2020-05-07 17:42 | Ultrasound Report ---
US abdomen limited HISTORY: 64 years-old Female Ascites check follow-up study in a patient with history of ascites COMPARISON: KUB 05/06/2020, CT abdomen and pelvis 04/25/2020 TECHNIQUE: Multiple real-time sonographic images of the abdomen were obtained assessing grayscale katelyn earance and color flow FINDINGS/IMPRESSION: Small volume ascites noted within all four quadrants of the abdomen. ACT 112: Negative or not required by law. The above report was generated using voice recognition software. It may contain grammatical, syntax o r spelling errors. Electronically signed by: Zeferino Hamilton M.D. 05/07/2020 5:41 PM
[2020-05-07] MEDS: SIMETHICONE 80 MG CHEW PO PRN (17:52)
[2020-05-07] MEDS: MoRPHine SULFATE 4 MG/ML 1 ML CARP\\VIAL IV PRN (20:51)
[2020-05-07] MEDS: LATANOPROST 0.005% OP SOLN 2.5 ML BTL OP SCH (20:52)
[2020-05-08] MEDS: SIMETHICONE 80 MG CHEW PO PRN ×2 (01:18→06:41)
[2020-05-08] MEDS: HEPARIN 100 UNIT/ML 5ML FLUSH FLUSH PRN (05:30)
[2020-05-08 06:57] LABS: BUN Creatinine Ratio 18.4 (10-20); Calcium 7.7 mg/dl (8.5-10.1); Creatinine Clr Calc Pharmacy 70.2 ml/min; Est GFR (African American) 109.3; Est GFR (Non-African American) 94.3; Magnesium 1.9 mg/dl (1.8-2.4); Potassium 3.9 mmol/L (3.5-5.1)
--- NOTE | 2020-05-08 07:17 | Surgery Progress Note ---
Date of Service May 08, 2020 Assessment & Plan (1) SBO (small bowel obstruction): 05/08/20 6 postoperative day overall she is doing well she is regaining her GI function we will increase her diet to full liquids and stop the Senokot and Mylicon at this time She had an ultrasound of the abdomen last night and showed some ascitic fluid which is most likely related to postsurgical changes and also some ascites that we found the surgery that probably recurred Can stop hyperalimentation if patient tolerates a full liquid diet Anticipate she will be here 2-3 more days feeling better ++ BM min NG output d/c NG PPN one more day- for proteins clear liquids Subjective Ambulating the halls without any difficulty she is 6-day postop ileal colonic anastomosis She is moving her bowels yesterday she was started on Senokot and Mylicon she states she got sick after taking those drugs Physical Exam Physical Exam: He appears quite comfortable as she walked back to the room I examined her when she was sitting in a chair she did not want to get in bed the abdomen is softly distended the incision there is a few areas that appeared more erythematous than last seen there is no real drainage on the dressing Results & Data Vital Signs (Past 12 Hours) Vital Signs Temp Pulse Resp BP Pulse Ox 05/07/20 23:14 36.9 C 72 16 117/66 98 PG Care Time/CCT Total # of Minutes Spent Total Time Spent with Patient: Total time spent is greater than 50% in coordination of care (as documented) at patient's floor/unit and/or counseling patient: Coding Level of Care Code None Diagnoses SBO (small bowel obstruction) K56.609
[2020-05-08] MEDS: HEPARIN SOD 5,000 UNIT/0.5 ML VIAL SQ SCH ×2 (09:33→21:16)
--- NOTE | 2020-05-08 12:56 | Hospitalist Progress Note ---
Date of Service May 08, 2020 Assessment & Plan (1) SBO (small bowel obstruction): CT a/p on 04/25 showed small bowel obstruction with the transition point likely located in the deep pelvis. Likely a result of her metastatic ovarian cancer or possibly adhesions from prior surgery. - Re-anastomosis with Dr. Malone on 05/02 - Surgery went well. No need for resection or ostomy. Was able to re-anastomose at prior site. - Paaseed a BM overnight. NG tube pulled. Clear diet per surgery. (2) Disseminated ovarian cancer: Originally diagnosed in 2007 with surgery and adjuvant chemotherapy. No recurrence since then, but patient has had loss of appetite and bloating for several weeks prior to presentation. - Presently undergoing chemothearpy with Dr. Thurman who feels she is responding well if we can overcome side-effects. - Discussed with oncology (Dr. Thurman) on 05/04 -> Plan to restart chemo as soon as able. Likely 2 weeks S/P discharge. - Palliative care consulted (3) DVT prophylaxis: Heparin 5000 units SQ Q12h Admission and Anticipated Discharge Date Admission Date: April 25, 2020 Subjective Patient reports feeling fristrated that she continues to be in the hospital for so long. She states she had some abd. pain overnight. Review of Systems Review of Systems: All systems reviewed & are unremarkable except as noted in HPI & below Physical Exam Physical Exam: Constitutional: WD/WN, vitals as above Eyes: EOM intact bilaterally; no conjunctival abnormality ENMT: normal inspection Neck: trachea midline, no thyromegaly normal visual inspection Respiratory: normal respiratory effort, lungs clear to auscultation no respiratory distress Cardiovascular: RRR, no murmur, no edema Gastrointestinal (Abdomen): Inspection/Auscultation: + abdominal surgical incision and + hypoactive bowel sounds; + abdomen abnormal to inspection and abdomen not distended Percussion/Palpation: abdomen soft; abdomen nontender, no guarding and abdomen not rigid Musculoskeletal: no cyanosis or clubbing, extremities motor strength 5/5 Skin: no rashes, warm and dry Neurologic: moves all extremities and awake Psychiatric: Orientation: alert, oriented to person and cooperative, irritbable affect. Results & Data Results & Data ([facility]) Vital Signs (Past 12 Hours) Vital Signs Temp Pulse Resp BP Pulse Ox 05/08/20 07:27 36.4 C L 77 16 99/74 L 98 PG Care Time/CCT Total # of Minutes Spent Total Time Spent with Patient: Total time spent is greater than 50% in coordination of care (as documented) at patient's floor/unit and/or counseling patient: Coding Level of Care Code 40696 Subseq Hosp Care Lvl 3 Diagnoses SBO (small bowel obstruction) K56.609 Disseminated ovarian cancer C56.9 DVT prophylaxis Z29.9 Time Spent (min) 35
[2020-05-08] MEDS ORDERED: SIMETHICONE 40 MG/0.6 ML 30ML PO ONE (12:58)
--- NOTE | 2020-05-08 15:09 | Wound Progress Note ---
Date of Service May 08, 2020 Assessment & Plan (1) Splinter in skin: This is a 64-year-old female admitted with small bowel obstruction continues to have foreign body in the right third digit. After obtaining permission topical Xylocaine was applied. Using forceps and a scalpel an intact thorn was removed. There is no bleeding. Patient tolerated the procedure well with no complications. Thank you for allow me to participate in the care of this patient. Please do not hesitate to call with any questions. Subjective Patient seen sitting at the bedside. Still complaining of foreign body in her right third digit. Patient with no other complaints relating to this finger wound. Review of Systems Review of Systems: All systems reviewed & are unremarkable except as noted in HPI & below Physical Exam Skin: Wound measuring 0.1 x 0.1 x 0.1 cm. This appears to be a foreign body in the right third finger. There is no drainage. There is no foul odor. Neurologic: awake; not confused Psychiatric: A+Ox3, euthymic affect Results & Data Vital Signs (Past 12 Hours) Vital Signs Temp Pulse Resp BP Pulse Ox 05/08/20 07:27 36.4 C L 77 16 99/74 L 98 PG Care Time/CCT Total # of Minutes Spent Total Time Spent with Patient: Total time spent is greater than 50% in coordination of care (as documented) at patient's floor/unit and/or counseling patient: Coding Level of Care Code 40253 Subseq Hosp Care Lvl 2 Diagnoses Splinter in skin T14.8XXA
[2020-05-08] MEDS: LATANOPROST 0.005% OP SOLN 2.5 ML BTL OP SCH (21:16)
[2020-05-08] MEDS: MoRPHine SULFATE 2 MG/ML CARP IV PRN (21:20)
--- NOTE | 2020-05-09 06:13 | Surgery Progress Note ---
Date of Service May 09, 2020 Assessment & Plan (1) SBO (small bowel obstruction): 05/08/20 6 postoperative day overall she is doing well she is regaining her GI function we will increase her diet to full liquids and stop the Senokot and Mylicon at this time She had an ultrasound of the abdomen last night and showed some ascitic fluid which is most likely related to postsurgical changes and also some ascites that we found the surgery that probably recurred Can stop hyperalimentation if patient tolerates a full liquid diet Anticipate she will be here 2-3 more days 05/09/20 Seventh postoperative day The patient feels much better since the Senokot and Mylicon was discontinued She has had multiple bowel movements Her abdomen is softer the incision is of slight erythema in the upper aspect and I will open it later today We will advance to a regular diet May be able to go home in a day or 2 feeling better ++ BM min NG output d/c NG PPN one more day- for proteins clear liquids Results & Data Vital Signs (Past 12 Hours) Vital Signs Temp Pulse Resp BP Pulse Ox 05/08/20 23:02 36.7 C 68 18 128/68 95 PG Care Time/CCT Total # of Minutes Spent Total Time Spent with Patient: Total time spent is greater than 50% in coordination of care (as documented) at patient's floor/unit and/or counseling patient: Coding Level of Care Code None Diagnoses SBO (small bowel obstruction) K56.609
[2020-05-09] MEDS: HEPARIN SOD 5,000 UNIT/0.5 ML VIAL SQ SCH ×2 (08:55→20:54)
[2020-05-09] MEDS: HEPARIN 100 UNIT/ML 5ML FLUSH FLUSH PRN ×3 (16:16→21:48)
[2020-05-09] MEDS: OXYCODONE/ACETAMINOPHEN 5mg/325mg TAB PO PRN (16:32)
[2020-05-09] MEDS: ONDANSETRON INJ 2 MG/ML 2 ML VIAL IV PRN ×2 (16:32→23:54)
[2020-05-09] MEDS: LATANOPROST 0.005% OP SOLN 2.5 ML BTL OP SCH (20:55)
[2020-05-09] MEDS: MoRPHine SULFATE 2 MG/ML CARP IV PRN (21:48)
--- NOTE | 2020-05-09 22:17 | Hospitalist Progress Note ---
Date of Service May 09, 2020 Assessment & Plan (1) SBO (small bowel obstruction): CT a/p on 04/25 showed small bowel obstruction with the transition point likely located in the deep pelvis. Likely a result of her metastatic ovarian cancer or possibly adhesions from prior surgery. - Re-anastomosis with Dr. Malone on 05/02 - Surgery went well. No need for resection or ostomy. Was able to re-anastomose at prior site. - Continues to be passing BM throughout the day. Advancing diet to regular diet. will see how she tolerates this. (2) Disseminated ovarian cancer: Originally diagnosed in 2007 with surgery and adjuvant chemotherapy. No recurrence since then, but patient has had loss of appetite and bloating for several weeks prior to presentation. - Presently undergoing chemothearpy with Dr. Thurman who feels she is responding well if we can overcome side-effects. - Discussed with oncology (Dr. Thurman) on 05/04 -> Plan to restart chemo as soon as able. Likely 2 weeks S/P discharge. - Palliative care consulted (3) DVT prophylaxis: Heparin 5000 units SQ Q12h Admission and Anticipated Discharge Date Admission Date: April 25, 2020 Subjective Patient reports that she continues to have abdominal pain, but it is mild. She also has been having multiple BMs. Review of Systems Review of Systems: All systems reviewed & are unremarkable except as noted in HPI & below Physical Exam Constitutional: WD/WN, vitals as above ENMT: external ear and nose normal, oropharynx normal Neck: trachea midline, no thyromegaly Respiratory: normal respiratory effort, lungs clear to auscultation Cardiovascular: RRR, no murmur, no edema Gastrointestinal (Abdomen): normal bowel sounds, soft, nontender, no hepatosplenomegaly Neurologic: PERRL, EOMI, accommodation nl, no face palsy, no dysarthria Psychiatric: A+Ox3, euthymic affect Orientation: alert, oriented to person and oriented to place Results & Data Results & Data ([facility]) Vital Signs (Past 12 Hours) Vital Signs Temp Pulse Resp BP Pulse Ox 05/09/20 15:29 36.8 C 72 18 119/71 97 PG Care Time/CCT Total # of Minutes Spent Total Time Spent with Patient: Total time spent is greater than 50% in coordination of care (as documented) at patient's floor/unit and/or counseling patient: Coding Level of Care Code 57935 Subseq Hosp Care Lvl 2 Diagnoses SBO (small bowel obstruction) K56.609 Disseminated ovarian cancer C56.9 DVT prophylaxis Z29.9 Time Spent (min) 25
[2020-05-09] MEDS: MoRPHine SULFATE 4 MG/ML 1 ML CARP\\VIAL IV PRN (23:55)
--- NOTE | 2020-05-10 04:33 | Communication Note ---
Date of Service: May 10, 2020 Notified by nursing that pt was complaining of abdominal distention and discomfort, bloating. On arrival to her room, she was walking the halls tapping her abdomen in discomfort, especially in the RLQ. On exam, she had tympanitic bowel sounds, abdomen somewhat firm and tense and especially tender in the right lower quadrant. bandages clean. A stat KUB was ordered. Given a dose of simethicone. 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
[2020-05-10] MEDS: HEPARIN 100 UNIT/ML 5ML FLUSH FLUSH PRN ×2 (05:29→08:21)
[2020-05-10] MEDS: SIMETHICONE 80 MG CHEW PO PRN ×2 (05:40→16:34)
[2020-05-10 05:56] LABS: Hematocrit (blood only) 27.3 % (37-47); Mean Corpuscular Hemoglobin 31.3 pg (25-34); Mean Corpuscular Volume 94.8 fL (80-100); Mean Platelet Volume 8.5 fL (7.4-10.4); Platelet Count 286 K/uL (130-400); RDW Coefficient of Variation 20.3 % (11.5-14.5); RDW Standard Deviation 68.5 fL (36.4-46.3); Red Blood Count 2.88 M/uL (4.2-5.4); White Blood Count 4.14 K/uL (4.8-10.8)
[2020-05-10 06:28] LABS: BUN Creatinine Ratio 20.5 (10-20); Calcium 7.9 mg/dl (8.5-10.1); Creatinine Clr Calc Pharmacy 44.4 ml/min; Est GFR (Non-African American) 59.5; Potassium 3.8 mmol/L (3.5-5.1)
--- NOTE | 2020-05-10 08:03 | Surgery Progress Note ---
Date of Service May 10, 2020 Assessment & Plan (1) SBO (small bowel obstruction): POD#8 exlap with re-anastomosis Pt tolerated regular diet yesterday without nausea/vomiting Having some more bloating this AM, KUB obtained, does have gas into colon & rectum Will continue to monitor for now as pt. continues to have + bowel function. Will d/c IV morphine Some mary removed from superior portion of midline wound yesterday due to some erythema. Wound still looks okay today. Wound dressed with dry gauze dressing, no packing needed. Please change daily and prn Pt seen and examined with Dr. Malone Subjective Patient seen walking around in room this AM. Says she ate all 3 meals yesterday. Does feel a little bit more bloated this AM, but has been having + bowel function. Physical Exam Physical Exam: awake/alert Gastrointestinal (Abdomen): Inspection/Auscultation: + abdomen distended (a little more distended than yesterday) and + abdominal surgical incision (some mild superior erythema, few mary removed yest to keep open) Percussion/Palpation: abdomen soft Results & Data Vital Signs (Past 12 Hours) Vital Signs Temp Pulse Resp BP Pulse Ox Pulse Ox 05/10/20 07:40 36.7 C 73 16 122/73 98 05/09/20 23:30 98 05/09/20 22:48 36.7 C 67 15 102/64 98 PG Care Time/CCT Total # of Minutes Spent Total Time Spent with Patient: Total time spent is greater than 50% in coordination of care (as documented) at patient's floor/unit and/or counseling patient: Coding Level of Care Code None Diagnoses SBO (small bowel obstruction) K56.609
--- NOTE | 2020-05-10 08:24 | XRay Report ---
KUB CLINICAL HISTORY: Generalized abdominal pain. FINDINGS: An AP, portable, supine abdominal radiograph is compared to study dated 05/06/2020 and corre lated with abdominal CT dated 04/25/2020. Midline skin clips are again noted. There is no bowel obstruc tion. Gas is seen throughout the colon. No evidence of intraperitoneal free air is seen on this supin e image. There are no abnormal abdominal calcifications. Phleboliths are observed in the pelvis. The skeletal structures are osteopenic and appear intact. A right hip arthroplasty is in place. IMPRESSION: Nonobstructed abdominal bowel gas pattern. Electronically signed by: Leandro Uribe M.D. 05/10/2020 8:23 AM
[2020-05-10] MEDS: HEPARIN SOD 5,000 UNIT/0.5 ML VIAL SQ SCH ×2 (08:40→20:56)
[2020-05-10] MEDS: OXYCODONE/ACETAMINOPHEN 5mg/325mg TAB PO PRN ×2 (16:34→20:55)
[2020-05-10] MEDS: LATANOPROST 0.005% OP SOLN 2.5 ML BTL OP SCH (20:56)
--- NOTE | 2020-05-10 23:15 | Hospitalist Progress Note ---
Date of Service May 10, 2020 Assessment & Plan (1) SBO (small bowel obstruction): CT a/p on 04/25 showed small bowel obstruction with the transition point likely located in the deep pelvis. Likely a result of her metastatic ovarian cancer or possibly adhesions from prior surgery. - Re-anastomosis with Dr. Malone on 05/02 - Surgery went well. No need for resection or ostomy. Was able to re-anastomose at prior site. - Continues to be passing BM throughout the day. Advancing diet to regular diet. will see how she tolerates this. her abdomen does appear to be more distended and tympanic. she continues to be passing gas and stool however, and KUB is not showing signs of obstructions. (2) Disseminated ovarian cancer: Originally diagnosed in 2007 with surgery and adjuvant chemotherapy. No recurrence since then, but patient has had loss of appetite and bloating for several weeks prior to presentation. - Presently undergoing chemothearpy with Dr. Thurman who feels she is responding well if we can overcome side-effects. - Discussed with oncology (Dr. Thurman) on 05/04 -> Plan to restart chemo as soon as able. Likely 2 weeks S/P discharge. - Palliative care consulted (3) DVT prophylaxis: Heparin 5000 units SQ Q12h Admission and Anticipated Discharge Date Admission Date: April 25, 2020 Subjective Patient continues to reports BM, she also reports her abdomen is distended. Review of Systems Review of Systems: All systems reviewed & are unremarkable except as noted in HPI & below Physical Exam Physical Exam: Constitutional: WD/WN, vitals as above Eyes: EOM intact bilaterally; no conjunctival abnormality ENMT: normal inspection Neck: trachea midline, no thyromegaly normal visual inspection Respiratory: normal respiratory effort, lungs clear to auscultation no respiratory distress Cardiovascular: RRR, no murmur, no edema Gastrointestinal (Abdomen): Inspection/Auscultation: + abdominal surgical incision and + hypoactive bowel sounds; + abdomen abnormal to inspection and abdomen distended; Percussion/Palpation: abdomen soft; tympanic, abdomen nontender, no guarding and abdomen not rigid Musculoskeletal: no cyanosis or clubbing, extremities motor strength 5/5 Skin: no rashes, warm and dry Neurologic: moves all extremities and awake Psychiatric: Orientation: alert, oriented to person and cooperative, irritbable affect. PG Care Time/CCT Total # of Minutes Spent Total Time Spent with Patient: Total time spent is greater than 50% in coordination of care (as documented) at patient's floor/unit and/or counseling patient: Coding Level of Care Code 78184 Subseq Hosp Care Lvl 2 Diagnoses SBO (small bowel obstruction) K56.609 Disseminated ovarian cancer C56.9 DVT prophylaxis Z29.9 Time Spent (min) 25
[2020-05-11] MEDS: HEPARIN SOD 5,000 UNIT/0.5 ML VIAL SQ SCH ×2 (08:09→21:01)
--- NOTE | 2020-05-11 10:51 | Surgery Progress Note ---
Date of Service May 11, 2020 Assessment & Plan (1) SBO (small bowel obstruction): POD#9 exlap with bowel re-anastomosis patient clinically doing well okay to shower she is having bowel function and tolerating a regular diet her abdominal bloat is improved from yesterday midline wound stable, dressing changes daily and prn okay for discharge from surgical standpoint when okay with medicine will leave dispo instructions and ask pt to follow up in clinic within 1 week pt seen and examined with Dr. Malone Subjective Patient seen in room. She ate her full breakfast this AM. No n/v. She is having + bowel function. Physical Exam Physical Exam: awake/alert Gastrointestinal (Abdomen): Inspection/Auscultation: + abdomen distended (improved from yesterday) and + abdominal surgical incision (midline wound w mary, some removed superiorly to keep wound open) Percussion/Palpation: abdomen soft Results & Data Vital Signs (Past 12 Hours) Vital Signs Temp Pulse Pulse Resp BP Pulse Ox 05/11/20 07:15 36.5 C 77 16 129/73 94 05/10/20 23:36 36.8 C 78 14 135/80 98 PG Care Time/CCT Total # of Minutes Spent Total Time Spent with Patient: Total time spent is greater than 50% in coordination of care (as documented) at patient's floor/unit and/or counseling patient: Coding Level of Care Code None Diagnoses SBO (small bowel obstruction) K56.609
[2020-05-11] MEDS: LATANOPROST 0.005% OP SOLN 2.5 ML BTL OP SCH (20:59)
[2020-05-11] MEDS: OXYCODONE/ACETAMINOPHEN 5mg/325mg TAB PO PRN (21:00)
--- NOTE | 2020-05-11 22:41 | Hospitalist Progress Note ---
Date of Service May 11, 2020 Assessment & Plan (1) SBO (small bowel obstruction): CT a/p on 04/25 showed small bowel obstruction with the transition point likely located in the deep pelvis. Likely a result of her metastatic ovarian cancer or possibly adhesions from prior surgery. - Re-anastomosis with Dr. Malone on 05/02 - Surgery went well. No need for resection or ostomy. Was able to re-anastomose at prior site. - Continues to be passing BM throughout the day. Tolerated egular diet. will see how she tolerates this. her abdomen does appear to be more distended and tympanic. she continues to be passing gas and stool however, and KUB is not showing signs of obstructions. (2) Disseminated ovarian cancer: Originally diagnosed in 2007 with surgery and adjuvant chemotherapy. No recurrence since then, but patient has had loss of appetite and bloating for several weeks prior to presentation. - Presently undergoing chemothearpy with Dr. Thurman who feels she is responding well if we can overcome side-effects. - Discussed with oncology (Dr. Thurman) on 05/04 -> Plan to restart chemo as soon as able. Likely 2 weeks S/P discharge. - Palliative care consulted (3) DVT prophylaxis: Heparin 5000 units SQ Q12h Admission and Anticipated Discharge Date Admission Date: April 25, 2020 Subjective Patient reports she does not feel well enough for discharge. She states she continues to have intermittent abdominal pain. She has bowel movements and is tolerating her diet. Review of Systems Review of Systems: All systems reviewed & are unremarkable except as noted in HPI & below Physical Exam Physical Exam: Constitutional: WD/WN, vitals as above Eyes: EOM intact bilaterally; no conjunctival abnormality ENMT: normal inspection Neck: trachea midline, no thyromegaly normal visual inspection Respiratory: normal respiratory effort, lungs clear to auscultation no respiratory distress Cardiovascular: RRR, no murmur, no edema Gastrointestinal (Abdomen): Inspection/Auscultation: + abdominal surgical incision and + hypoactive bowel sounds; + abdomen abnormal to inspection and less abdomen distended; Percussion/Palpation: abdomen soft; tympanic, abdomen nontender, no guarding and abdomen not rigid Musculoskeletal: no cyanosis or clubbing, extremities motor strength 5/5 Skin: no rashes, warm and dry Neurologic: moves all extremities and awake Psychiatric: Orientation: alert, oriented to person and cooperative, irritbable affect. Results & Data Results & Data ([facility] [place]) Vital Signs (Past 12 Hours) Vital Signs Temp Pulse Resp BP Pulse Ox 05/11/20 15:21 36.6 C 73 18 140/89 97 PG Care Time/CCT Total # of Minutes Spent Total Time Spent with Patient: Total time spent is greater than 50% in coordination of care (as documented) at patient's floor/unit and/or counseling patient: Coding Level of Care Code 52723 Subseq Hosp Care Lvl 2 Diagnoses SBO (small bowel obstruction) K56.609 Disseminated ovarian cancer C56.9 DVT prophylaxis Z29.9 Time Spent (min) 25
[2020-05-12] MEDS: OXYCODONE/ACETAMINOPHEN 5mg/325mg TAB PO PRN ×2 (01:08→13:32)
[2020-05-12] MEDS: HEPARIN SOD 5,000 UNIT/0.5 ML VIAL SQ SCH (07:38)
--- NOTE | 2020-05-12 12:47 | Surgery Progress Note ---
Date of Service May 12, 2020 Assessment & Plan (1) SBO (small bowel obstruction): POD 10 enterocolic bypass I explained the procedure to her, she may have bloating, nausea at home, diet instructions discussed and written daily dressing changes, can shower, may benefit from home health and moist to dry dressing changes but she seems reluctant to have HH f/u in clinic in 1 week Subjective some bloating, BM yesterday, tolerating diet fair Physical Exam Gastrointestinal (Abdomen): Inspection/Auscultation: + abdomen distended and + abdominal surgical incision (small open area, moist to dry dressing applied) Percussion/Palpation: abdomen soft Results & Data Vital Signs (Past 12 Hours) Vital Signs Temp Pulse Pulse Resp BP Pulse Ox 05/12/20 12:13 36.6 C 64 75 15 130/71 92 05/12/20 07:45 36.6 C 64 15 130/71 92 PG Care Time/CCT Total # of Minutes Spent Total Time Spent with Patient: Total time spent is greater than 50% in coordination of care (as documented) at patient's floor/unit and/or counseling patient: Coding Level of Care Code None Diagnoses SBO (small bowel obstruction) K56.609
--- NOTE | 2020-05-18 08:26 | Discharge Summary ---
Date of Service May 12, 2020 Admission HPI Per Admitting Provider 64 yo female w/ pMHx breast cancer status post mastectomy, ovarian cancer status post hysterectomy, glaucoma, remote history of Giardia infection treated with Flagyl presents today to the ED with bilateral lower abdominal painShe states this pain began about Friday afternoon and gradually became worse over the course the past 3 days. She try to limit her diet but she noticed that when she would eat her pain would worsen. She she feels that the pain is nonradiating and constant. Patient denies fever chills diaphoresis. Patient reports no subjective fevers as well. Patient reports no bowel movements for the past 2-3 days.For the past 24 hours she reports that her nausea has worsened and she is now vomiting her food contents. Pain has also worsened and is about 8 out of 10. Initially it was like a 6 out of 10 Patient reports having a history of small bowel obstruction in the past. She was told she likely has adhesions from her past surgeries. I discussed case with ER attending at this time will hold off NG tube as patient is not actively vomiting at this moment if pain is difficult to control will inserted this evening. Principal Diagnosis small bowel obstruction Discharge Exam Constitutional: WD/WN, vitals as above Eyes: EOM intact bilaterally; no conjunctival abnormality ENMT: normal inspection Neck: trachea midline, no thyromegaly normal visual inspection Respiratory: normal respiratory effort, lungs clear to auscultation no respiratory distress Cardiovascular: RRR, no murmur, no edema Gastrointestinal (Abdomen): Inspection/Auscultation: + abdominal surgical incision and + hypoactive bowel sounds; + abdomen abnormal to inspection and less abdomen distended; Percussion/Palpation: abdomen soft; tympanic, abdomen nontender, no guarding and abdomen not rigid Musculoskeletal: no cyanosis or clubbing, extremities motor strength 5/5 Skin: no rashes, warm and dry Neurologic: moves all extremities and awake Psychiatric: Orientation: alert, oriented to person and cooperative, irritable affect. Discharge Data Allergies Allergy/AdvReac Type Severity Reaction Status Date / Time nickel Allergy Intermediate RASH,ITCHIN Verified 05/17/20 14:13 G Consultations 04/25/20 17:09 ED Decision to Admit Stat 04/25/20 17:12 Consult General Surgery Stat 04/27/20 13:25 Consult Wound Care Provider Routine 04/28/20 08:01 Consult Oncology Routine 05/01/20 12:41 Consult Palliative Care Routine Procedures Performed Operation Date: 05/02/20 14:00 Actual Procedures p Exploratory Laparotomy,ileo- colic anatomosis (Not Applicable) - Mookie Malone MD Ordered Studies 04/25/20 15:28 CT abd pelvis IV con only Stat 04/27/20 06:50 UGI SBFT [FL GI series with SBFT] Routine 05/07/20 16:45 US abdomen limited Routine Hospital Course (1) SBO (small bowel obstruction): CT a/p on 04/25 showed small bowel obstruction with the transition point likely located in the deep pelvis. Likely a result of her metastatic ovarian cancer or possibly adhesions from prior surgery. - Re-anastomosis with Dr. Malone on 05/02 - Surgery went well. No need for resection or ostomy. Was able to re-anastomose at prior site. - Continues to be passing BM throughout the day. Tolerated regular diet. will see how she tolerates this. her abdomen does appear to be less distended and tympanic. she continues to be passing gas and stool however, and KUB is not showing signs of obstructions. D/W gen. surgery, ok for discharge. (2) Disseminated ovarian cancer: Originally diagnosed in 2007 with surgery and adjuvant chemotherapy. No recurrence since then, but patient has had loss of appetite and bloating for several weeks prior to presentation. - Presently undergoing chemothearpy with Dr. Thurman who feels she is responding well if we can overcome side-effects. - Discussed with oncology (Dr. Thurman) on 05/04 -> Plan to restart chemo as soon as able. Likely 2 weeks S/P discharge. - Palliative care consulted (3) DVT prophylaxis: Heparin 5000 units SQ Q12h Total Time Total Time Spent Total Time Spent (In Minutes): 32 Total Time Includes: Examination of the Patient, Discharge Planning, Medication Reconciliation and Communication With Other Providers Discharge Plan Discharge Items Patient Disposition: Home - Home Health Services Reason For Visit: SMALL BOWEL OBSTRUCTION Discharge Diagnosis: Bowel obstruction Condition on Discharge: Good Activity: Per Instructions section Lifting: No more than 10 pounds Bathing Comment: may shower, no soaking in tubs Exercise/Sports: Wait until after follow-up appointment Driving/Machine Use: Resume 3 days after discharge Non-emergency contact: Primary Care Provider Call non-emergency contact if: you have any medication questions, your symptoms worsen, your pain is worsening, your pain is unusual for you, you have a fever, your temperature is above 101.5, your wound has increased redness, your wound has increased drainage and your wound pain has increased Follow-up/Referrals: Mookie Malone MD [Surgeon] - 05/17/20 1:50 pm (Please, follow up at [facility] General Surgery Office with Dr. Malone on FridayMay 17 at 1:50 pm. *The office is located at [address] [place] [address] in [place]. If you need to change this appointment, call the office at [phone].) Fede Thurman DO [Physician] - 05/16/20 10:10 am (If you need to change this appointment, please call [phone].) Ly García PA-C [Primary Care Provider] - 05/19/20 2:30 pm (If you need to change this appointment, please call [phone].) Diet: Regular Addtl Attending Provider Instructions: The remainder of your surgical mary will be removed when you follow up in surgery clinic. Please call to schedule an appointment for next week. You may have bloating off and on for several weeks, you can to eat small meals 4-5 times daily, try more liquid and low fiber diet, or try nutritional supplements such as Ensure, Boost or carnation instant breakfast. Pending Studies at Discharge: No Stand-Alone Forms: [facility], Opioid Pain Management, Work/School Release (Inpt), Smoking Cessation Medications and DC Order Prescriptions: New simethicone [Mi-Acid Gas Relief(simethicon)] 80 mg Tablet,Chewable 80 mg PO Q6H PRN (Reason: Abdominal Distention) Qty: 30 RF: 0 oxycodone 5 mg capsule 5 mg PO Q6H PRN (Reason: pain, initial therapy, max 6 daily) Qty: 15 RF: 0 Continued ondansetron HCl [Zofran] 8 mg tablet 8 mg PO Q8H PRN (Reason: Nausea) RF: 0 latanoprost 0.005 % Drops 1 drp OPHTHALMIC (EYE) HS RF: 0 dexamethasone [Decadron] 4 mg tablet 10 mg PO UD RF: 0 Discharge Orders: Discharge Order (Routine); Ordered 05/12/20 Ordered By: Tariq Gallegos Admission Data Admit Date/Time: 04/25/20 18:05 Attending Provider: Tariq Gallegos Admit Provider: Tariq Gallegos Primary Care Provider: Ly García Other Providers: Mookie Malone ; Buddy Martinez ; Fede Thurman V. ; Alan Reeves ; Toyin Berry ; Dayron Merida ; Lul Henderson ; Emelia Alcocer Other Interventions: Discharge Summary Assessment (RN) Last Done: 05/12/20 12:13 DC Date/Time DO NOT enter until pt leaves facility: 05/12/20 15:04 Coding Level of Care Code D/C Day Management >30 mins Diagnoses SBO (small bowel obstruction) K56.609 Disseminated ovarian cancer C56.9 DVT prophylaxis Z29.9 Time Spent (min) 32
== END 2020-05-12 15:04 | disposition home health service (06) | DRG 330 ==
LOC: ED 14:43 → 3N 18:05 → SUATTDRO 18:05 → 3N 19:00